=== PATIENT | female | born 1955 | race Caucasian/White ===

== ENCOUNTER 2016-09-02 10:51 | Inpatient (IN) | payer MEDICAID, OTHER ==
[~2016-09-02] VITALS: Ht 160 cm; Wt 68.6 kg
[~2016-09-02 10:51] MED LIST: ACET-868 PO; ACET325T53 PO; ACET500C43 PO; AMLO10TA4 PO; ATOR40TA PO; ATRO2DRO4 EACHEYE; BLOO-140 IN; BRIM5DRO EACHEYE; CLON0.1T PO; CLOP75TA2 PO; DOCU-25 PO; DOCU-270 PO; DORZ10DR11 EACHEYE; FOLI0.8T2 PO; FOLI1TAB16 PO; INSU100V10 SQ; INSU100V27 SQ; LATA2.5D2 EACHEYE; MELA3TAB PO; MULT1TAB11 PO; PANT40TA2 PO; PRED5DRO4 LEFTEYE; SENN8.6T6 PO; SERT25TA PO; SERT50TA PO; SEVE800T8 PO
[2016-09-02] MEDS ORDERED: IV NS 0.9% 500 ML BAG IV ONE (11:30)
[2016-09-02] MEDS ORDERED: IV SET PRIMARY 1 EA INFUS.SET MC ONE (11:40)
[2016-09-02] MEDS ORDERED: IV NS 0.9% 500 ML IV ONE ×2 (11:40→22:10)
[2016-09-02 11:42] LABS: BASOPHILS % (AUTO) 3.6 % (0.0-2.0); DIFF TOTAL % 100 %; EOSINOPHILS # (AUTO) 0.2 /CMM (0.0-0.7); EOSINOPHILS % (AUTO) 0.8 % (0.0-6.0); HEMATOCRIT 43 % (33-45); HEMOGLOBIN 13.9 g/dL (11.5-14.8); LYMPHOCYTES # (AUTO) 2.6 /CMM (0.8-4.8); LYMPHOCYTES % (AUTO) 9.4 % (20.0-44.0); MEAN CORPUSCULAR HEMOGLOBIN 29 PG (26.0-33.0); MEAN CORPUSCULAR HGB CONC 32 g/dl (31.0-36.0); MEAN CORPUSCULAR VOLUME 90 fL (82-100); MONOCYTES # (AUTO) 1.1 /CMM (0.1-1.30); NEUTROPHILS # (AUTO) 23.1 /CMM (1.8-8.9); NEUTROPHILS % (AUTO) 82.2 % (43.0-81.0); PLATELET COUNT (AUTO) 418 /CMM (150-450); RED BLOOD CELL COUNT(AUTO) 4.77 MIL/uL (4.0-5.2)
[2016-09-02 11:56] LABS: INR 1.03 (0.87-1.13); PROTHROMBIN TIME 10.8 SECS (9.5-12.7)
[2016-09-02 11:57] LABS: ALANINE AMINOTRANSFERASE 15 U/L (12-78); ALBUMIN 3.4 g/dL (3.4-5.0); ANION GAP 27 (5-14); ASPARTATE AMINOTRANSFERASE 14 U/L (15-37); BILIRUBIN,DIRECT 0.1 mg/dL (0.0-0.2); BILIRUBIN,TOTAL 0.6 mg/dL (0.2-1.0); CALCIUM, SERUM 9.8 mg/dL (8.5-10.1); CARBON DIOXIDE 18 mmol/L (21-32); CHLORIDE 96 mmol/L (98-107); CREATININE 6.6 mg/dL (0.6-1.3); GFR 6 mL/min (>60); GLUCOSE 197 mg/dL (74-106); INDIRECT BILIRUBIN 0.5 mg/dL (0.0-1.1); SODIUM SERUM 136 mmol/L (136-145); TOTAL PROTEIN, SERUM 8.1 g/dL (6.4-8.2); UREA NITROGEN, BLOOD 48 mg/dL (7-18)
[2016-09-02 11:59] LABS: POTASSIUM 5.8 mmol/L (3.5-5.1)
[2016-09-02 12:00] LABS: TROPONIN I < 0.017 ng/mL (0.00-0.056)
[2016-09-02] MEDS ORDERED: INSU100I26 SQ (12:11)
[2016-09-02] MEDS ORDERED: ERGO50003 PO (12:11)
[2016-09-02] MEDS ORDERED: ONDANSETRON HCL/PF 4 MG/2 ML VIAL ONE (12:11)
[2016-09-02] MEDS ORDERED: LORA1TAB PO (12:11)
[2016-09-02] MEDS ORDERED: HYDR-3326 PO (12:11)
[2016-09-02] MEDS ORDERED: SEVE800T8 PO (12:11)
[2016-09-02] MEDS ORDERED: CLOP75TA2 PO (12:11)
[2016-09-02] MEDS ORDERED: ONDANSETRON HCL/PF - ER 4 MG/2 ML VIAL IV ONE (12:30)
[2016-09-02 13:17] LABS: BAND % (MANUAL) 1 % (0.0-5.0); LYMPHOCYTES % (MANUAL) 9 % (16-48)
[2016-09-02 13:19] LABS: ANISOCYTOSIS 1+; BURR CELLS 1+; PLATELET ESTIMATE ADEQUATE
[2016-09-02] MEDS ORDERED: ACETAMINOPHEN 325 MG TABLET PO PRN (14:00)
[2016-09-02] MEDS ORDERED: HYDROCODONE/APAP 5/325MG 1 EACH TABLET PO PRN (14:00)
[2016-09-02] MEDS ORDERED: ONDANSETRON HCL/PF 4 MG/2 ML VIAL IVP PRN (14:00)
[2016-09-02] MEDS ORDERED: MORPHINE SULFATE INJ 2 MG/ML DISP.SYRIN IV PRN (14:00)
[2016-09-02] MEDS ORDERED: PANTOPRAZOLE 80 MG in IV NS 0.9% 500 ML IV PRN (14:00)
[2016-09-02] MEDS ORDERED: Z GUARD REMEDY 2 OZ OINT TP PRN (14:00)
[2016-09-02] MEDS ORDERED: ZOLPIDEM TARTRATE 5 MG TABLET PO PRN (14:00)
[2016-09-02] MEDS ORDERED: PANTOPRAZOLE 40 MG VIAL IV SCH (14:00)
[2016-09-02] MEDS ORDERED: PANTOPRAZOLE 80 MG in IV NS 0.9% 100 ML IV ONE (14:00)
[2016-09-02 14:30] VITALS: BP 117/65
[2016-09-02] MEDS ORDERED: IV SET PRIMARY PUMP SET 1 EA INFUS.SET MC ONE ×2 (14:57→22:10)
[2016-09-02] MEDS: IV NS 0.9% 1,000 ML IV PRN (15:02)
[2016-09-02 16:00] VITALS: BP 113/59
[2016-09-02 20:00] VITALS: BP 132/64
[2016-09-02] MEDS ORDERED: PANTOPRAZOLE 40 MG VIAL ONE (22:10)
[2016-09-02] MEDS: PANTOPRAZOLE 80 MG in IV NS 0.9% 500 ML IV PRN (22:30)
[2016-09-03] VITALS: BP 111/55
[2016-09-03 04:00] VITALS: BP 156/78
[2016-09-03] MEDS: IV NS 0.9% 1,000 ML IV PRN ×2 (04:49→16:00)
[2016-09-03 07:41] LABS: BASOPHILS # (AUTO) 0.1 /CMM (0.0-0.2); BASOPHILS % (AUTO) 0.3 % (0.0-2.0); DIFF TOTAL % 100 %; EOSINOPHILS # (AUTO) 0.1 /CMM (0.0-0.7); EOSINOPHILS % (AUTO) 0.6 % (0.0-6.0); HEMATOCRIT 36 % (33-45); HEMOGLOBIN 11.8 g/dL (11.5-14.8); LYMPHOCYTES # (AUTO) 2.9 /CMM (0.8-4.8); LYMPHOCYTES % (AUTO) 12.1 % (20.0-44.0); MEAN CORPUSCULAR HEMOGLOBIN 31 PG (26.0-33.0); MEAN CORPUSCULAR HGB CONC 33 g/dl (31.0-36.0); MEAN CORPUSCULAR VOLUME 92 fL (82-100); MONOCYTES # (AUTO) 1.6 /CMM (0.1-1.30); MONOCYTES % (AUTO) 6.8 % (2.0-12.0); NEUTROPHILS # (AUTO) 19.2 /CMM (1.8-8.9); NEUTROPHILS % (AUTO) 80.2 % (43.0-81.0); PLATELET COUNT (AUTO) 312 /CMM (150-450); RED BLOOD CELL COUNT(AUTO) 3.86 MIL/uL (4.0-5.2)
[2016-09-03] MEDS: PANTOPRAZOLE 80 MG in IV NS 0.9% 500 ML IV PRN (07:54)
[2016-09-03 08:00] VITALS: BP 115/51
[2016-09-03 08:21] LABS: CALCIUM, SERUM 8.9 mg/dL (8.5-10.1); CREATININE 6.8 mg/dL (0.6-1.3); PHOSPHORUS 6.1 mg/dL (2.5-4.9); POTASSIUM 4.1 mmol/L (3.5-5.1)
[2016-09-03 12:00] VITALS: BP 98/49
[2016-09-03 16:00] VITALS: BP 112/46
[2016-09-03] MEDS: PANTOPRAZOLE 40 MG VIAL IV SCH (16:00)
[2016-09-03 19:12] LABS: URIC ACID 4.1 mg/dL (2.6-7.2)
[2016-09-03 20:00] VITALS: BP 116/50
[2016-09-03] MEDS ORDERED: FEE PK DOSING 1 MIN EA MC ONE (20:29)
[2016-09-03] MEDS ORDERED: VANCOMYCIN 1 GM in IV D5W 250 ML IV ONE (21:00)
[2016-09-03] MEDS ORDERED: SECONDARY IV SET 1 EA INFUS.SET MC ONE ×2 (21:21→22:52)
[2016-09-03] MEDS ORDERED: CEFEPIME 1 GM in IV D5W 50 ML IV ONE (22:00)
[2016-09-04 04:00] VITALS: BP 145/70
[2016-09-04 06:51] LABS: BASOPHILS % (AUTO) 0.2 % (0.0-2.0); DIFF TOTAL % 100 %; EOSINOPHILS # (AUTO) 0.2 /CMM (0.0-0.7); EOSINOPHILS % (AUTO) 1.4 % (0.0-6.0); HEMATOCRIT 34 % (33-45); HEMOGLOBIN 11.6 g/dL (11.5-14.8); LYMPHOCYTES # (AUTO) 2.1 /CMM (0.8-4.8); LYMPHOCYTES % (AUTO) 13.1 % (20.0-44.0); MEAN CORPUSCULAR HEMOGLOBIN 31 PG (26.0-33.0); MEAN CORPUSCULAR HGB CONC 34 g/dl (31.0-36.0); MEAN CORPUSCULAR VOLUME 92 fL (82-100); MONOCYTES # (AUTO) 1.3 /CMM (0.1-1.30); MONOCYTES % (AUTO) 8.5 % (2.0-12.0); NEUTROPHILS # (AUTO) 12.2 /CMM (1.8-8.9); NEUTROPHILS % (AUTO) 76.8 % (43.0-81.0); PLATELET COUNT (AUTO) 264 /CMM (150-450); RED BLOOD CELL COUNT(AUTO) 3.75 MIL/uL (4.0-5.2); WHITE BLOOD COUNT (AUTO) 15.9 K/uL (4.3-11.0)
[2016-09-04 07:17] LABS: CALCIUM, SERUM 8.7 mg/dL (8.5-10.1); PHOSPHORUS 4.3 mg/dL (2.5-4.9); POTASSIUM 3.7 mmol/L (3.5-5.1)
[2016-09-04 08:00] VITALS: BP 145/70
[2016-09-04] MEDS: PANTOPRAZOLE 40 MG VIAL IV SCH ×2 (08:44→16:27)
[2016-09-04] MEDS: IV NS 0.9% 1,000 ML IV PRN (08:49)
[2016-09-04] MEDS ORDERED: VANCOMYCIN 500 MG in IV D5W 100 ML IV PRN (09:00)
[2016-09-04 12:09] LABS: VIT D, 25-HYDROXY 9.2 ng/mL (30.0-100.0)
[2016-09-04] MEDS: GENTAMICIN OPTH SOLN 0.3% 5 ML BOTTLE EACHEYE SCH ×3 (15:15→22:09)
[2016-09-04 16:00] VITALS: BP 145/55
[2016-09-04 20:00] VITALS: BP 139/58
[2016-09-04] MEDS: CEFEPIME 0.5 GM in IV D5W 50 ML IV SCH (22:08)
[2016-09-05] MEDS: GENTAMICIN OPTH SOLN 0.3% 5 ML BOTTLE EACHEYE SCH ×6 (03:39→22:30)
[2016-09-05 04:00] VITALS: BP 118/70
[2016-09-05 08:00] VITALS: BP 130/65
[2016-09-05] MEDS: PANTOPRAZOLE 40 MG VIAL IV SCH ×2 (09:55→17:30)
[2016-09-05 16:00] VITALS: BP 156/68
[2016-09-05 20:00] VITALS: BP 133/74
[2016-09-05] MEDS: CEFEPIME 0.5 GM in IV D5W 50 ML IV SCH (21:25)
[2016-09-06 04:00] VITALS: BP 140/72
[2016-09-06] MEDS: GENTAMICIN OPTH SOLN 0.3% 5 ML BOTTLE EACHEYE SCH ×6 (04:07→22:14)
[2016-09-06 08:00] VITALS: BP 152/62
[2016-09-06] MEDS: PANTOPRAZOLE 40 MG VIAL IV SCH ×2 (08:50→17:34)
[2016-09-06 16:00] VITALS: BP 125/69
[2016-09-06 20:00] VITALS: BP 139/65
[2016-09-06] MEDS: CEFEPIME 0.5 GM in IV D5W 50 ML IV SCH (22:13)
[2016-09-07] MEDS: GENTAMICIN OPTH SOLN 0.3% 5 ML BOTTLE EACHEYE SCH ×6 (02:30→21:24)
[2016-09-07 04:00] VITALS: BP 125/73
[2016-09-07 04:15] VITALS: BP 125/73
[2016-09-07 08:00] VITALS: BP 135/59
[2016-09-07 08:09] LABS: BASOPHILS # (AUTO) 0.1 /CMM (0.0-0.2); BASOPHILS % (AUTO) 0.4 % (0.0-2.0); DIFF TOTAL % 100 %; EOSINOPHILS # (AUTO) 0.2 /CMM (0.0-0.7); EOSINOPHILS % (AUTO) 1.7 % (0.0-6.0); HEMATOCRIT 34 % (33-45); HEMOGLOBIN 10.9 g/dL (11.5-14.8); LYMPHOCYTES # (AUTO) 1.8 /CMM (0.8-4.8); LYMPHOCYTES % (AUTO) 12.7 % (20.0-44.0); MEAN CORPUSCULAR HEMOGLOBIN 30 PG (26.0-33.0); MEAN CORPUSCULAR HGB CONC 33 g/dl (31.0-36.0); MEAN CORPUSCULAR VOLUME 93 fL (82-100); MONOCYTES # (AUTO) 1.7 /CMM (0.1-1.30); MONOCYTES % (AUTO) 11.5 % (2.0-12.0); NEUTROPHILS # (AUTO) 10.6 /CMM (1.8-8.9); NEUTROPHILS % (AUTO) 73.7 % (43.0-81.0); PLATELET COUNT (AUTO) 247 /CMM (150-450); WHITE BLOOD COUNT (AUTO) 14.4 K/uL (4.3-11.0)
[2016-09-07 08:19] LABS: CALCIUM, SERUM 8.1 mg/dL (8.5-10.1); CREATININE 5.1 mg/dL (0.6-1.3); PHOSPHORUS 3.7 mg/dL (2.5-4.9); POTASSIUM 3.3 mmol/L (3.5-5.1)
[2016-09-07] MEDS: PANTOPRAZOLE 40 MG VIAL IV SCH ×2 (08:52→17:41)
[2016-09-07] MEDS ORDERED: IV NS 0.9% 2,000 ML ONE (09:44)
[2016-09-07] MEDS ORDERED: ALTEPLASE CATHFLO 2 MG/VIAL IV ONE (10:30)
[2016-09-07] MEDS ORDERED: ALBUMIN 25% 25 GM in PREMIX 1 EA IV PRN (10:30)
[2016-09-07 16:00] VITALS: BP 126/48
[2016-09-07 20:35] VITALS: BP 92/52
[2016-09-07] MEDS: CEFEPIME 0.5 GM in IV D5W 50 ML IV SCH (21:21)
[2016-09-08] MEDS: GENTAMICIN OPTH SOLN 0.3% 5 ML BOTTLE EACHEYE SCH ×3 (02:07→11:14)
[2016-09-08 04:31] VITALS: BP 138/56
[2016-09-08] MEDS: PIPERACILLIN /TAZOBACTAM 2.25 G in IV D5W 50 ML IV SCH ×2 (05:12→13:00)
[2016-09-08 07:35] LABS: BASOPHILS # (AUTO) 0.1 /CMM (0.0-0.2); BASOPHILS % (AUTO) 0.4 % (0.0-2.0); DIFF TOTAL % 100 %; EOSINOPHILS # (AUTO) 0.2 /CMM (0.0-0.7); EOSINOPHILS % (AUTO) 1.8 % (0.0-6.0); HEMATOCRIT 31 % (33-45); HEMOGLOBIN 10.3 g/dL (11.5-14.8); LYMPHOCYTES # (AUTO) 2.2 /CMM (0.8-4.8); MEAN CORPUSCULAR HEMOGLOBIN 31 PG (26.0-33.0); MEAN CORPUSCULAR HGB CONC 33 g/dl (31.0-36.0); MEAN CORPUSCULAR VOLUME 93 fL (82-100); MONOCYTES # (AUTO) 1.8 /CMM (0.1-1.30); MONOCYTES % (AUTO) 13.5 % (2.0-12.0); NEUTROPHILS # (AUTO) 9.2 /CMM (1.8-8.9); NEUTROPHILS % (AUTO) 68.3 % (43.0-81.0); PLATELET COUNT (AUTO) 217 /CMM (150-450); RED BLOOD CELL COUNT(AUTO) 3.33 MIL/uL (4.0-5.2); WHITE BLOOD COUNT (AUTO) 13.5 K/uL (4.3-11.0)
[2016-09-08 08:00] VITALS: BP 142/57
[2016-09-08 08:17] LABS: BILIRUBIN,TOTAL 0.7 mg/dL (0.2-1.0); CALCIUM, SERUM 7.4 mg/dL (8.5-10.1); PHOSPHORUS 2.7 mg/dL (2.5-4.9); POTASSIUM 3.2 mmol/L (3.5-5.1); TOTAL PROTEIN, SERUM 6.4 g/dL (6.4-8.2)
[2016-09-08] MEDS: PANTOPRAZOLE 40 MG VIAL IV SCH (08:27)
[2016-09-08] MEDS ORDERED: IV NS 0.9% 250 ML IV ONE (08:33)
[2016-09-08] MEDS ORDERED: IV SET PRIMARY PUMP SET 1 EA INFUS.SET MC ONE (08:33)
[2016-09-08] MEDS ORDERED: SECONDARY IV SET 1 EA INFUS.SET MC ONE (12:57)
== END 2016-09-08 14:16 | DRG 720 ==
LOC: ER 10:53 → TELE1 12:39 → MEDSG1 09-03 10:51
PROVIDERS: ADMIT Internal Medicine; ATTEND Internal Medicine Nephrology
PROC: 5A1D60Z (ICD-10-PCS; principal; 2016-09-03)
DX: A41.9 Sepsis, unspecified organism (principal); G92 Toxic encephalopathy; N18.6 End stage renal disease; I12.0 Hypertensive chronic kidney disease with stage 5 chronic kidney disease or end stage renal disease; F03.90 Unspecified dementia, unspecified severity, without behavioral disturbance, psychotic disturbance, mood disturbance, and anxiety; N39.0 Urinary tract infection, site not specified; E11.22 Type 2 diabetes mellitus with diabetic chronic kidney disease; E53.8 Deficiency of other specified B group vitamins; J44.9 Chronic obstructive pulmonary disease, unspecified; Z99.2 Dependence on renal dialysis; H54.8 Legal blindness, as defined in USA; Z89.512 Acquired absence of left leg below knee; Z89.612 Acquired absence of left leg above knee; Z86.73 Personal history of transient ischemic attack (TIA), and cerebral infarction without residual deficits; D72.829 Elevated white blood cell count, unspecified; F32.9 Major depressive disorder, single episode, unspecified; D63.1 Anemia in chronic kidney disease; E78.5 Hyperlipidemia, unspecified; E87.5 Hyperkalemia; F41.9 Anxiety disorder, unspecified; H10.9 Unspecified conjunctivitis; H26.9 Unspecified cataract; H40.9 Unspecified glaucoma; K21.9 Gastro-esophageal reflux disease without esophagitis; M85.80 Other specified disorders of bone density and structure, unspecified site
CPT/HCPCS: 36415; 71010-TC; 80048-TC; 80053-TC; 80076-TC; 80202-TC; 82272-TC; 82306; 82378; 82728-TC; 82746; 82962-TC; 83540-TC; 83605-TC; 83615-TC; 83690-TC; 83735-TC; 84100-TC; 84484-TC; 84550-TC; 85025-TC; 85652-TC; 85730-TC; 86850-TC; 87040-TC; 87081-TC; 87400; 90935-TC; A4216; A4606; A6402; C9113; J0692; J2405; J2543; J2997; J3370; J7030; J7040; J7050; J7060; P9047; Z7610

== ENCOUNTER 2017-06-28 06:34 | Emergency (ER) | payer OTHER ==
[~2017-06-28] VITALS: Ht 160 cm; Wt 59.0 kg
[~2017-06-28 06:34] MED LIST changes: -DOCU-25 PO; +ERGO50003 PO; +HYDR-3326 PO; +INSU100I26 SQ; -INSU100V10 SQ; +LORA1TAB PO; -MULT1TAB11 PO; -SENN8.6T6 PO; -SERT25TA PO; -SERT50TA PO
--- NOTE | 2017-06-28 06:50 | NUR ---
MARYDenita FROM PRISON DUE TO TIBIA FRACTURE. PT IS A/O X3, MOHAWK SPEAKING. O2 SAT >97% ON ROOM AIR. PT STATES SHE WAS HAVING MILD PAIN AT RIGHT LOWER EXTREMITY AT THE PRISON. CURRENTLY HAS PAIN UPON MOVEMENT. PT STATES SHE PREVIOUSLY HAD A FRACTURE IN THE SAME LEG APPROXIMATELY [address] PEOPLES AT BEDSIDE.
--- NOTE | 2017-06-28 07:09 | NUR ---
XRAY TAKEN OF RIGHT LOWER EXTREMITY.
--- NOTE | 2017-06-28 07:14 | NUR ---
REPORT GIVEN TO NYDIA VELAZQUEZ.
[2017-06-28] MEDS ORDERED: HYDROCODONE/APAP 5/325MG 1 EACH TABLET ONE (07:52)
[2017-06-28] MEDS ORDERED: HYDROCODONE/APAP 5/325MG 1 EACH TABLET PO ONE (08:00)
[2017-06-28] MEDS ORDERED: MORPHINE SULFATE INJ 2 MG/ML DISP.SYRIN IM ONE (08:00)
--- NOTE | 2017-06-28 09:03 | NUR ---
Patient discharged to home in stable condition. Written and verbal after care instructions given. Patient' s daughter verbalizes understanding of instruction. Pt assisted via wheelchair.
[2017-06-28 09:05] VITALS: BP 154/84
== END 2017-06-28 09:06 | disposition home or self-care (01) ==
LOC: ER 06:36
DX: S82.831A Other fracture of upper and lower end of right fibula, initial encounter for closed fracture (principal); S82.391A Other fracture of lower end of right tibia, initial encounter for closed fracture; E78.00 Pure hypercholesterolemia, unspecified; I12.0 Hypertensive chronic kidney disease with stage 5 chronic kidney disease or end stage renal disease; N18.6 End stage renal disease; E11.22 Type 2 diabetes mellitus with diabetic chronic kidney disease; F03.90 Unspecified dementia, unspecified severity, without behavioral disturbance, psychotic disturbance, mood disturbance, and anxiety; F32.9 Major depressive disorder, single episode, unspecified; H40.9 Unspecified glaucoma; K21.9 Gastro-esophageal reflux disease without esophagitis; Z79.4 Long term (current) use of insulin; Z89.512 Acquired absence of left leg below knee; Z86.73 Personal history of transient ischemic attack (TIA), and cerebral infarction without residual deficits; X58.XXXA Exposure to other specified factors, initial encounter; Y93.89 Activity, other specified; Y92.89 Other specified places as the place of occurrence of the external cause; Y99.8 Other external cause status; Z79.899 Other long term (current) drug therapy
CPT/HCPCS: 73590-TC; A4606; Z7610

== ENCOUNTER 2017-07-22 15:43 | Inpatient (IN) | payer OTHER ==
[~2017-07-22] VITALS: Ht 165.1 cm; Wt 53.7 kg
[~2017-07-22 15:43] MED LIST changes: +CLOP75TA15 PO; -CLOP75TA2 PO; +ERGO500014 PO; -ERGO50003 PO
[2017-07-22 16:42] LABS: BASOPHILS % (AUTO) 0.4 % (0.0-2.0); EOSINOPHILS % (AUTO) 0.3 % (0.0-6.0); HEMATOCRIT 33 % (33-45); HEMOGLOBIN 11.4 g/dL (11.5-14.8); LYMPHOCYTES # (AUTO) 1.6 /CMM (0.8-4.8); LYMPHOCYTES % (AUTO) 18.7 % (20.0-44.0); MEAN CORPUSCULAR HEMOGLOBIN 31 PG (26.0-33.0); MEAN CORPUSCULAR HGB CONC 35 g/dl (31.0-36.0); MEAN CORPUSCULAR VOLUME 89 fL (82-100); MONOCYTES % (AUTO) 11.4 % (2.0-12.0); NEUTROPHILS # (AUTO) 5.9 /CMM (1.8-8.9); NEUTROPHILS % (AUTO) 69.2 % (43.0-81.0); PLATELET COUNT (AUTO) 235 /CMM (150-450); RDW COEFFICIENT OF VARIATION 14.5 (11.5-15.0); WHITE BLOOD COUNT (AUTO) 8.5 K/uL (4.3-11.0)
[2017-07-22] MEDS ORDERED: AMIN30LI4 PO (16:53)
[2017-07-22] MEDS ORDERED: SENN-167 PO (16:53)
[2017-07-22] MEDS ORDERED: SEVE0.8P3 PO (16:53)
[2017-07-22] MEDS ORDERED: BRIN8DRO EACHEYE (16:53)
[2017-07-22] MEDS ORDERED: NUT.237L67 PO (16:53)
[2017-07-22] MEDS ORDERED: TIMO5DRO18 EACHEYE (16:53)
[2017-07-22] MEDS ORDERED: FAMO20TA8 PO (16:53)
[2017-07-22 16:56] LABS: INR 1.04 (0.87-1.13)
[2017-07-22 16:58] LABS: BILIRUBIN,DIRECT 0.3 mg/dL (0.0-0.2); BILIRUBIN,TOTAL 0.7 mg/dL (0.2-1.0); CALCIUM, SERUM 8.2 mg/dL (8.5-10.1); CREATININE 2.2 mg/dL (0.6-1.3); TOTAL PROTEIN, SERUM 5.9 g/dL (6.4-8.2)
[2017-07-22 17:00] LABS: TROPONIN I 0.041 ng/mL (0.00-0.056)
[2017-07-22 17:03] LABS: POTASSIUM 2.3 mmol/L (3.5-5.1)
[2017-07-22 17:48] LABS: APPEARANCE,URINE TURBID (CLEAR); COLOR,URINE DARK YELLOW (YELLOW); PH,URINE 7.5 (5.0-8.0)
[2017-07-22 17:49] LABS: BILIRUBIN,URINE SMALL (NEGATIVE); BLOOD, URINE 3+ Ery/uL (NEGATIVE); PROTEIN,URINE 2+ mg/dl (NEGATIVE); UGLUCOSE NEGATIVE (NEGATIVE)
[2017-07-22 17:50] LABS: KETONES,URINE NEGATIVE (NEGATIVE); UROBILINOGEN,URINE 0.2 EU/dL (0.2)
[2017-07-22 17:51] LABS: NITRITE, URINE NEGATIVE (NEGATIVE)
[2017-07-22 17:52] LABS: LEUKOCYTE ESTERASE ,URINE 2+ (NEGATIVE)
[2017-07-22 17:58] LABS: BACTERIA,URINE Many /HPF (None Seen); WBC,URINE 21-50 /HPF (0-3)
[2017-07-22 17:59] LABS: SQUAMOUS EPITHELIAL CELL,UR Few /HPF (None Seen)
[2017-07-22] MEDS ORDERED: PIPERACILLIN /TAZOBACTAM 2.25 G in IV D5W 50 ML IV SCH (18:17)
--- NOTE | 2017-07-22 18:18 | NUR ---
CALLED NURSING SUP. FOR TELE BED
--- NOTE | 2017-07-22 18:26 | NUR ---
RECEIVED ADMITTING ORDERS FROM DR. LEWIS AND PLACED IN CHART.
[2017-07-22] MEDS: POTASSIUM CL. PREMIX PERIPHER. 50 ML IV SCH ×4 (18:30→23:02)
[2017-07-22 21:00] VITALS: BP 92/48
--- NOTE | 2017-07-22 21:00 | NUR ---
RN OPEN NOTES RECEIVED PATIENT FROM ER IN STABLE CONDITION. A/O X2. NO SIGNS OF DISTRESS OR DISCOMFORT. BREATHING EVEN AND UNLABORED. ON 2LPM O2 VIA NC. IV ACCESS IN LAC WITH KCL INFUSING, PATENT AND INTACT, NO SIGNS OF REDNESS OR INFILTRATION. HAD F/C INTACT, WITH CLOUDY YELLOWISH GREEN PURULENT FLUID DRAINING. HAS DRESSING ON RLE C/D/I. WITH STABILIZING BOOT. ORIENTED PATIENT TO UNIT AND ROOM. ALL PHOTOS TAKEN. BED IN LOW LOCKED POSITION WITH SIDE RAILS X3. CALL LIGHT WITHIN REACH. WILL CONTINUE TO MONITOR.
--- NOTE | 2017-07-22 21:30 | NUR ---
RN NOTES PATIENT CONFUSED, PULLED ABOUT AN INCH OF LCW PERMACATH OUT. NOTIFIED DR. LEWIS RECEIVED ORDER FOR BILATERAL WRIST RESTRAINTS. WILL CONTINUE TO MONITOR PATIENT CLOSELY.
[2017-07-22] MEDS ORDERED: HYDROCODONE/APAP 5/325MG 1 EACH TABLET PO PRN (23:00)
[2017-07-22] MEDS ORDERED: PIPERACILLIN /TAZOBACTAM 3.375 G VIAL IV ONE (23:59)
[2017-07-22] MEDS ORDERED: ONDANSETRON HCL/PF 4 MG/2 ML VIAL ONE (23:59)
[2017-07-23] MEDS ORDERED: DEXTROSE 50%-WATER 50 ML DISP.SYRIN IV PRN
[2017-07-23] MEDS ORDERED: ONDANSETRON HCL/PF 4 MG/2 ML VIAL IV PRN
[2017-07-23] MEDS ORDERED: INSULIN REGULAR, HUMAN 100 UNIT/ML 3 ML VIAL SQ PRN
[2017-07-23 04:05] VITALS: BP 125/53
[2017-07-23] MEDS ORDERED: PIPERACILLIN /TAZOBACTAM 3.375 G in IV D5W 50 ML IV SCH (06:00)
[2017-07-23] MEDS: BLOOD SUGAR DIAGNOSTIC 1 EACH STRIP IN SCH ×7 (06:09→21:22)
[2017-07-23 07:01] VITALS: BP 127/56
--- NOTE | 2017-07-23 07:30 | NUR ---
RN CLOSING NOTES PATIENT RESTING IN BED, EASILY AROUSABLE. A/O X2. NO SIGNS OF DISTRESS OR DISCOMFORT. BREATHING EVEN AND UNLABORED. IV ACCESS IN LAC, PATENT AND INTACT, NO SIGNS OF REDNESS OR INFILTRATION. HAS F/C INTACT, WITH CLOUDY YELLOWISH GREEN PURULENT FLUID DRAINING. HAS DRESSING ON RLE C/D/I. WITH STABILIZING BOOT. ON BILATERAL WRIST RESTRAINTS WITH NO SKIN OR CIRCULATION ISSUES NOTED. ALL NEEDS MET. NO SIGNIFICANT CHANGES THROUGH THE NIGHT. REPOSITIONED PATIENT Q2H. BED IN LOW LOCKED POSITION WITH SIDE RAILS X3. CALL LIGHT WITHIN REACH. ENDORSED TO AM SHIFT FOR YVES. Addendum: 07/23/17 at 0732 by LUIS ENRIQUE COX RN ON TELE MONITORING WITH SR 82 NOTED.
--- NOTE | 2017-07-23 07:34 | NUR ---
AM RN NOTE Received patient sleeping comfortably in her bed, easily arousable. Resp even and non-labored. IV site intact and patent. LCW PermCath covered with dressing. Brandon wrist restraints on as ordered. Bed in low locked position. F/C intact and patent draining with yellowish cloudy drainage. Will continue to monitor.
[2017-07-23 08:00] VITALS: BP 129/61
[2017-07-23 08:19] LABS: EOSINOPHILS # (AUTO) 0.1 /CMM (0.0-0.7); EOSINOPHILS % (AUTO) 0.4 % (0.0-6.0); HEMATOCRIT 33 % (33-45); HEMOGLOBIN 10.9 g/dL (11.5-14.8); LYMPHOCYTES # (AUTO) 1.2 /CMM (0.8-4.8); LYMPHOCYTES % (AUTO) 9.4 % (20.0-44.0); MEAN CORPUSCULAR HEMOGLOBIN 30 PG (26.0-33.0); MEAN CORPUSCULAR HGB CONC 33 g/dl (31.0-36.0); MEAN CORPUSCULAR VOLUME 90 fL (82-100); MONOCYTES # (AUTO) 0.9 /CMM (0.1-1.30); MONOCYTES % (AUTO) 6.7 % (2.0-12.0); NEUTROPHILS # (AUTO) 10.7 /CMM (1.8-8.9); NEUTROPHILS % (AUTO) 83.5 % (43.0-81.0); PLATELET COUNT (AUTO) 280 /CMM (150-450); RDW COEFFICIENT OF VARIATION 14.9 (11.5-15.0); RED BLOOD CELL COUNT(AUTO) 3.66 MIL/uL (4.0-5.2); WHITE BLOOD COUNT (AUTO) 12.9 K/uL (4.3-11.0)
[2017-07-23 09:06] LABS: CALCIUM, SERUM 8.1 mg/dL (8.5-10.1); CREATININE 2.8 mg/dL (0.6-1.3); MAGNESIUM 1.7 mg/dL (1.8-2.4); PHOSPHORUS 1.6 mg/dL (2.5-4.9); POTASSIUM 3.2 mmol/L (3.5-5.1)
[2017-07-23] MEDS ORDERED: Medication Not On Formulary EA (Melatonin 3 MG) PO SCH (09:30)
[2017-07-23] MEDS ORDERED: HYDROCODONE/APAP 5/325MG 1 EACH TABLET PO PRN (09:30)
[2017-07-23] MEDS ORDERED: Medication Not On Formulary EA (Blood Sugar Diagnostic, Drum (Accu-Chek Compact) 1 EACH) IN SCH (09:30)
[2017-07-23] MEDS ORDERED: TIMOLOL MAL/DORZOLAM HCL OPHTH 10 ML BOTTLE EACHEYE SCH (09:30)
[2017-07-23] MEDS ORDERED: ACETAMINOPHEN 325 MG TABLET PO PRN (09:30)
[2017-07-23] MEDS ORDERED: TIMOLOL 0.5% SOLN OPHTH 5 ML BOTTLE EACHEYE SCH (09:30)
[2017-07-23] MEDS: CLOPIDOGREL BISULFATE 75 MG TABLET PO SCH (10:09)
[2017-07-23] MEDS: FOLIC ACID 1 MG TABLET PO SCH (10:09)
[2017-07-23] MEDS: FAMOTIDINE (20 MG) 20 MG TABLET PO SCH (10:09)
[2017-07-23] MEDS: SEVELAMER CARBONATE 0.8 GM POWD.PACK PO SCH ×4 (10:09→17:43)
[2017-07-23] MEDS: AMLODIPINE BESYLATE 10 MG TABLET PO SCH (10:10)
[2017-07-23] MEDS: DOCUSATE SODIUM 100 MG CAPSULE PO SCH ×2 (10:10→17:40)
[2017-07-23] MEDS: LORAZEPAM 1 MG TABLET PO SCH (10:11)
[2017-07-23] MEDS ORDERED: acetaZOLAMIDE 250 MG TABLET PO SCH (10:30)
[2017-07-23] MEDS: RENAL NOVASOURCE (8OZ) 1 EA BOX PO SCH ×3 (10:30→17:40)
[2017-07-23] MEDS ORDERED: INSULIN LISPRO/ASPART 100 UNIT/ML CARTRIDGE SQ PRN (10:30)
[2017-07-23] MEDS ORDERED: POTASSIUM PHOSPHATE MM 15 MMOL in IV D5W 250 ML IV SCH (11:00)
[2017-07-23 11:17] LABS: EOSINOPHILS % (MANUAL) 2 % (0-4); LYMPHOCYTES % (MANUAL) 4 % (16-48); MONOCYTES % (MANUAL) 5 % (0-11.0); NEUTROPHILS % (MANUAL) 89 (42-76)
[2017-07-23] MEDS: ATROPINE SULFATE OPHTH SOLN 15 ML BOTTLE EACHEYE SCH ×2 (11:24→17:41)
[2017-07-23] MEDS: BRIMONIDINE TARTRATE OPHT SOLN 5 ML BOTTLE EACHEYE SCH ×2 (11:25→21:18)
[2017-07-23] MEDS ORDERED: Magnesium 1GM/D5W 100ML PREMIX 100 ML IV SCH (11:30)
[2017-07-23] MEDS ORDERED: prednisoLONE ACET 1% OPHT DROP 5 ML BOTTLE LEFTEYE SCH (11:30)
[2017-07-23] MEDS: acetaZOLAMIDE 250 MG TABLET PO SCH ×2 (11:51→17:40)
--- NOTE | 2017-07-23 12:10 | NUR ---
AM RN NOTE Consent for right lower extremity wound debridement obtained from the daughter (Marcella Regalado) over the phone by 2 RN's as witnessed by Jhoan STAFFORD.
--- NOTE | 2017-07-23 12:45 | NUR ---
AM RN NOTE Debridement of right lower extremity done by Dr. Lacey, pt tolerated the procedure well.
[2017-07-23] MEDS ORDERED: K PHOS NEUTRAL 250 MG TABLET PO ONE (13:00)
[2017-07-23] MEDS ORDERED: BRINZOLAMIDE EACHEYE SCH (13:00)
[2017-07-23] MEDS ORDERED: BRIMONID TART EACHEYE SCH (13:00)
--- NOTE | 2017-07-23 13:00 | NUR ---
AM RN NOTE Pt refused lunch and S/S insulin 2 units held.
[2017-07-23] MEDS: PIPERACILLIN /TAZOBACTAM 2.25 G in IV D5W 50 ML IV SCH ×2 (13:23→21:47)
[2017-07-23] MEDS: PROSOURCE / PROSTAT (PYXIS) 30 ML UDC PO SCH ×2 (14:19→17:40)
[2017-07-23 16:00] VITALS: BP 114/54
--- NOTE | 2017-07-23 16:27 | NUR ---
AM RN NOTE Patient's IV site on LAC noted with infiltration and attempted to re-insert new IV site but unable to do so. Called Dr. David Jin with new order obtained for midline insertion, noted. CN notified dive supervisor to arrange for midline insertion.
--- NOTE | 2017-07-23 17:49 | NUR ---
AM RN NOTE Spoke with nursing supervisor gas meter repair (Carlton) still awaiting for midline nurse.
--- NOTE | 2017-07-23 17:59 | NUR ---
AM RN NOTE Called [facility] and spoke with nurse (Ayla STAFFORD) and eye drops orders clarified. Per Ayla, pt does not take cosopt any more. Called Jean-Paul (Pharmacist) made aware to update the instructions.
--- NOTE | 2017-07-23 18:38 | NUR ---
AM RN NOTE Pt lying in her bed, no acute distress noted. Still awaiting for midline nurse and will endorse to next shift to give IV zosyn that was due on 1800 once pt will have midline inserted. Will continue to monitor and endorse care to next shift.
[2017-07-23 20:00] VITALS: BP 117/53
[2017-07-23] MEDS: SENNOSIDES 8.6 MG TABLET PO SCH (21:14)
[2017-07-23] MEDS: ATORVASTATIN 40 MG TABLET PO SCH (21:15)
[2017-07-23] MEDS: LATANOPROST EYE DROP 0.005% 2.5 ML BOTTLE EACHEYE SCH (21:15)
[2017-07-23] MEDS: prednisoLONE ACET 1% OPHT DROP 5 ML BOTTLE LEFTEYE SCH (21:18)
[2017-07-23] MEDS: INSULIN DETEMIR 100 UNIT/ML CARTRIDGE SQ SCH (21:20)
[2017-07-24] MEDS: PIPERACILLIN /TAZOBACTAM 2.25 G in IV D5W 50 ML IV SCH ×4 (01:44→17:54)
[2017-07-24] MEDS: BRIMONIDINE TARTRATE OPHT SOLN 5 ML BOTTLE EACHEYE SCH ×3 (05:44→20:59)
[2017-07-24] MEDS: prednisoLONE ACET 1% OPHT DROP 5 ML BOTTLE LEFTEYE SCH ×3 (05:45→20:59)
[2017-07-24] MEDS: ATROPINE SULFATE OPHTH SOLN 15 ML BOTTLE EACHEYE SCH ×2 (05:45→17:00)
[2017-07-24] MEDS: acetaZOLAMIDE 250 MG TABLET PO SCH ×2 (06:47→17:00)
[2017-07-24] MEDS: BLOOD SUGAR DIAGNOSTIC 1 EACH STRIP IN SCH ×7 (06:49→21:17)
--- NOTE | 2017-07-24 07:25 | NUR ---
MS RN OPENING NOTES RECEIVED PATIENT AWAKE IN BED IN NO ACUTE SIGNS OF DISTRESS. A/O X1-2, CONFUSED. ON 2LPM O2 VIA NC, BREATHING EVEN AND UNLABORED. MIDLINE ON EMEKA PATENT AND INTACT, NO SIGNS OF REDNESS OR INFILTRATION NOTED TO SITE. PERMACATH ON LCW INTACT AND PATENT. F/C IN PLACED WITH CLOUDY YELLOWISH URINE DRAINING TO BEDSIDE COLLECTING BAG. BED IN LOW AND LOCKED POSITION WITH SIDE RAILS UP X3. CALL LIGHT WITHIN REACH. WILL CONTINUE TO MONITOR.
[2017-07-24 07:49] LABS: CALCIUM, SERUM 8.3 mg/dL (8.5-10.1); CREATININE 3.3 mg/dL (0.6-1.3); PHOSPHORUS 2.2 mg/dL (2.5-4.9); POTASSIUM 3.1 mmol/L (3.5-5.1)
[2017-07-24 08:00] VITALS: BP 115/53
[2017-07-24] MEDS: FOLIC ACID 1 MG TABLET PO SCH (08:25)
[2017-07-24] MEDS: CLOPIDOGREL BISULFATE 75 MG TABLET PO SCH (08:25)
[2017-07-24] MEDS: SEVELAMER CARBONATE 0.8 GM POWD.PACK PO SCH ×3 (08:25→17:21)
[2017-07-24] MEDS: FAMOTIDINE (20 MG) 20 MG TABLET PO SCH (08:25)
[2017-07-24] MEDS: PROSOURCE / PROSTAT (PYXIS) 30 ML UDC PO SCH ×3 (08:26→17:00)
[2017-07-24] MEDS: AMLODIPINE BESYLATE 10 MG TABLET PO SCH (08:26)
[2017-07-24] MEDS: DOCUSATE SODIUM 100 MG CAPSULE PO SCH ×2 (08:26→17:00)
[2017-07-24] MEDS: TIMOLOL 0.5% SOLN OPHTH 5 ML BOTTLE EACHEYE SCH ×2 (08:29→17:00)
[2017-07-24] MEDS: RENAL NOVASOURCE (8OZ) 1 EA BOX PO SCH ×2 (08:35→17:22)
[2017-07-24] MEDS ORDERED: POTASSIUM PHOSPHATE MM 15 MMOL in IV D5W 250 ML IV SCH (10:30)
[2017-07-24] MEDS: POTASSIUM PHOSPHATE MM 7.5 MMOL in IV D5W 100 ML IV SCH ×2 (10:43→14:36)
[2017-07-24] MEDS ORDERED: BRIMONID TART EACHEYE SCH (13:00)
[2017-07-24] MEDS ORDERED: BRINZOLAMIDE EACHEYE SCH (13:00)
--- NOTE | 2017-07-24 15:49 | NUR ---
RN NOTES CALLED DR BERNAL OFFICE TO INFORMED THAT PT'S K LEVEL IS LOW 3.1, SPOKE TO RIVER GUIDE/ELECTROPHYSIOLOGY NURSE PRACTITIONER DEREJE AND SAID THAT SHE WILL RELAY THE MESSAGE TO DR BERNAL OR DR JACKSON. AWAITING FOR RETURN CALL.
[2017-07-24 16:00] VITALS: BP 116/61
--- NOTE | 2017-07-24 18:32 | NUR ---
RN NOTES PATIENT S/P HEMODIALYSIS WITH OUPUT OF 500ML. V/S TAKEN 110/60MMHG, P 69. R 18 AND T 98.1f. PERMA CATH DRESSING CHANGED WITH NO ACYIVE BLEEDING NOTED. WILL CONTINUE TO MONITOR.
--- NOTE | 2017-07-24 18:59 | NUR ---
MS RN CLOSING NOTES PATIENT AWAKE AND RESTING IN BED. HOB ELEVATED AT ALL TIMES. A/O X1-2, CONFUSED. ON 2LPM O2 VIA NC, BREATHING EVEN AND UNLABORED. MIDLINE ON EMEKA PATENT AND INTACT, NO SIGNS OF REDNESS OR INFILTRATION NOTED TO SITE. PERMACATH ON LCW INTACT AND PATENT. F/C IN PLACED WITH CLOUDY YELLOWISH URINE DRAINING TO BEDSIDE COLLECTING BAG, KHALIL CARE DONE. KEPT BED IN LOW AND LOCKED POSITION WITH SIDE RAILS UP X3. CALL LIGHT WITHIN REACH. ALL NEEDS AND CARE PROVIDED WELL. WILL ENDORSED TO ASTROPHYSICS TEACHER NURSE FOR YVES. .
[2017-07-24 20:00] VITALS: BP 120/59
--- NOTE | 2017-07-24 20:00 | NUR ---
MS GRADES 1 6 TUTOR INITIAL NOTES' RECEIVED PT IN BED LYING ON HER LEFT SIDE WITH , STILL WITH BOTH SOFT RESTRAINT FOR SAFETY, BECAUSE PT TRIED TO PULL OUT HER LINES PER MA NURSE. NO SIGNS OF ANY ACUTE DISTRESS NOTED AT THIS TIME. BREATHING EVEN AND NON-LABORED, SKIN WARM AND DRY TO TOUCH. LEFT BELOW THE KNEE AMPUTATION NOTED. RIGHT FOOT WITH DRESSING DRY AND INTACT. ON KCI MATTRESS FOR PT COMFORT. KHALIL TO GRAVITY . MIDLINE ON LEFT UPPER ARM PATENT AND INTACT. KEPT HER WARM AND COMFORTABLE AT ALL TIMES. WILL CONTINUE TO MONITOR.
[2017-07-24] MEDS: ATORVASTATIN 40 MG TABLET PO SCH (21:16)
[2017-07-24] MEDS: SENNOSIDES 8.6 MG TABLET PO SCH (21:16)
[2017-07-24] MEDS: LATANOPROST EYE DROP 0.005% 2.5 ML BOTTLE EACHEYE SCH (21:28)
[2017-07-24] MEDS: INSULIN DETEMIR 100 UNIT/ML CARTRIDGE SQ SCH (22:00)
--- NOTE | 2017-07-24 22:00 | NUR ---
ZMT OPERATOR/NOTES BLOOD SUGAR CHECKED DONE 80, NO INSULIN GIVEN WELL LEVEMIR. PT REFUSED. NO SIGNS OF HYPO GLYCEMIA NOTED. NO IVF INFUSING ORDERED EXCEPT ANTIBIOTIC. WILL CONTINUE TO MONITOR.
--- NOTE | 2017-07-24 23:00 | NUR ---
MS MINIATURE SET BUILDER CLOSING NOTES ALL DUE MEDS GIVEN. ENDORSE TO ANOTHER NURSE CHARLETTE FOR CONTINUITY OF CARE.
[2017-07-25] MEDS: PIPERACILLIN /TAZOBACTAM 2.25 G in IV D5W 50 ML IV SCH ×4 (00:42→17:39)
[2017-07-25] MEDS: prednisoLONE ACET 1% OPHT DROP 5 ML BOTTLE LEFTEYE SCH ×3 (06:13→20:33)
[2017-07-25] MEDS: BRIMONIDINE TARTRATE OPHT SOLN 5 ML BOTTLE EACHEYE SCH ×3 (06:13→20:33)
[2017-07-25] MEDS: BLOOD SUGAR DIAGNOSTIC 1 EACH STRIP IN SCH ×8 (07:16→22:55)
--- NOTE | 2017-07-25 07:35 | NUR ---
MS RN CLOSING NOTES PT SLEPT INTERMITTENTLY @ NIGHT IN MODERATE HIGH BACKREST. A/O X1-2, RESPONDS TO VERBAL COMMUNICATION. ON SUPPLEMENTAL 2LPM O2 VIA NC, BREATHING EVEN AND UNLABORED. MIDLINE ON EMEKA PATENT AND INTACT, NO SIGNS OF REDNESS OR INFILTRATION NOTED TO SITE. PERMA CATH ON LCW INTACT AND PATENT. F/C IN PLACED WITH CLOUDY YELLOW URINE DRAINING TO BEDSIDE COLLECTING BAG. BED IN LOW AND LOCKED POSITION WITH SIDE RAILS UP X3. CALL LIGHT WITHIN REACH. KEPT CLEAN & DRY, TURNED/REPOSITIONED IN BED. ENDORSED TO AM RN FOR CONTINUITY OF CARE.
--- NOTE | 2017-07-25 07:37 | NUR ---
MS RN OPENING NOTES RECEIVED PATIENT IN BED AWAKE AND COMFORTABLY LYING @ MODERATE HIGH BACKREST. A/O X1-2, RESPONDS TO VERBAL COMMUNICATION. ON SUPPLEMENTAL 2LPM O2 VIA NC, BREATHING EVEN AND UNLABORED. MIDLINE ON EMEKA PATENT AND INTACT, NO SIGNS OF REDNESS OR INFILTRATION NOTED TO SITE. PERMACATH ON LCW INTACT AND PATENT. F/C IN PLACED WITH CLOUDY YELLOWISH URINE DRAINING TO BEDSIDE COLLECTING BAG. BED IN LOW AND LOCKED POSITION WITH SIDE RAILS UP X3. CALL LIGHT WITHIN REACH. WILL CONTINUE TO MONITOR.
[2017-07-25 08:00] VITALS: BP 114/71
[2017-07-25] MEDS: acetaZOLAMIDE 250 MG TABLET PO SCH ×2 (08:02→16:31)
[2017-07-25] MEDS: FAMOTIDINE (20 MG) 20 MG TABLET PO SCH (08:03)
[2017-07-25] MEDS: CLOPIDOGREL BISULFATE 75 MG TABLET PO SCH (08:09)
[2017-07-25] MEDS: AMLODIPINE BESYLATE 10 MG TABLET PO SCH (08:09)
[2017-07-25] MEDS: RENAL NOVASOURCE (8OZ) 1 EA BOX PO SCH ×2 (08:09→17:35)
[2017-07-25] MEDS: FOLIC ACID 1 MG TABLET PO SCH (08:10)
[2017-07-25] MEDS: PROSOURCE / PROSTAT (PYXIS) 30 ML UDC PO SCH ×3 (08:12→16:36)
[2017-07-25] MEDS: DOCUSATE SODIUM 100 MG CAPSULE PO SCH ×2 (08:13→16:33)
[2017-07-25] MEDS: SEVELAMER CARBONATE 0.8 GM POWD.PACK PO SCH ×3 (08:14→17:36)
[2017-07-25] MEDS: TIMOLOL 0.5% SOLN OPHTH 5 ML BOTTLE EACHEYE SCH ×2 (08:20→16:35)
[2017-07-25] MEDS ORDERED: ERGOCALCIFEROL (VITAMIN D 2) 50,000 UNIT CAPSULE PO SCH (09:00)
[2017-07-25 16:00] VITALS: BP 110/69
[2017-07-25] MEDS: ATROPINE SULFATE OPHTH SOLN 15 ML BOTTLE EACHEYE SCH (16:39)
--- NOTE | 2017-07-25 18:42 | NUR ---
MS RN CLOSING NOTES PATIENT IN BED AT [facility]. A/O X1-2, CONFUSED AT TIMES. NO SIGNIFICANT CHANGES NOTED DURING THE DAY. DIABETIC STATUS CLOSELY MONITORED. ON 2LPM O2 VIA NC, BREATHING EVEN AND UNLABORED, PT KEEPS REMOVING IT. MIDLINE ON EMEKA PATENT AND INTACT, NO SIGNS OF REDNESS OR INFILTRATION NOTED TO SITE. PERMACATH ON LCW INTACT AND PATENT. F/C IN PLACED AND ACTIVELY DRAING CLOUDY YELLOWISH URINE TO BEDSIDE COLLECTING BAG, KHALIL CARE DONE. KEPT BED IN LOW AND LOCKED POSITION WITH SIDE RAILS UP X3. CALL LIGHT WITHIN REACH. ALL NEEDS AND CARE PROVIDED WELL. WILL ENDORSED TO SANDWICH COUNTER ATTENDANT NURSE FOR YVES. .
--- NOTE | 2017-07-25 19:38 | NUR ---
MS/RN OPENING NOTES PATIENT IN BED, AWAKE, ALERT X2 ABLE TO VERBALIZE NEEDS WITH SIMPLE WORDS, REQUIRE REORIENTATION AND WITH PERIOD OF LACK OF COOPERATION. , ON MED SURG, WITH KHALIL CATHETER DRAINING URINE-CLOUDY, REQUIRE FREQUENT REPOSITION WITH SACRAL REDNESS. EMEKA MIDLINE, WITH PERMACATH ON LEFT CHEST WALL, MONITORING FOR HYPO/HYPERGLYCEMIA, BED IN LOCK POSITION, CALL LIGHTS WITHIN REACH. WILL CONTINUE TO MONITOR.
[2017-07-25 20:00] VITALS: BP 124/67
[2017-07-25] MEDS: LATANOPROST EYE DROP 0.005% 2.5 ML BOTTLE EACHEYE SCH (22:00)
[2017-07-25] MEDS: SENNOSIDES 8.6 MG TABLET PO SCH (22:00)
[2017-07-25] MEDS: ATORVASTATIN 40 MG TABLET PO SCH (22:00)
[2017-07-25] MEDS: INSULIN DETEMIR 100 UNIT/ML CARTRIDGE SQ SCH (22:00)
[2017-07-26] MEDS: PIPERACILLIN /TAZOBACTAM 2.25 G in IV D5W 50 ML IV SCH ×2 (00:10→05:34)
[2017-07-26] MEDS: BRIMONIDINE TARTRATE OPHT SOLN 5 ML BOTTLE EACHEYE SCH ×3 (05:34→21:04)
[2017-07-26] MEDS: prednisoLONE ACET 1% OPHT DROP 5 ML BOTTLE LEFTEYE SCH ×3 (05:35→21:04)
[2017-07-26] MEDS: BLOOD SUGAR DIAGNOSTIC 1 EACH STRIP IN SCH ×4 (06:14→22:27)
--- NOTE | 2017-07-26 06:56 | NUR ---
WOUND CARE CONSULT WOUND CARE RECEIVED CONSULT, WOUND CARE WILL DEFER CONSULT AND TREATMENT PLANS TO SURGICAL TEAM AT THIS TIME.
[2017-07-26] MEDS: ATROPINE SULFATE OPHTH SOLN 15 ML BOTTLE EACHEYE SCH (07:00)
[2017-07-26] MEDS: acetaZOLAMIDE 250 MG TABLET PO SCH (07:00)
[2017-07-26] MEDS: FAMOTIDINE (20 MG) 20 MG TABLET PO SCH ×2 (07:30→11:26)
--- NOTE | 2017-07-26 07:37 | NUR ---
MS/RN CLOSING NOTES PATIENT ALERT, ORIENTED X2, REQUIRE FREQUENT REORIENTATION, RESPIRATION EVEN AND UNLABORED, SKIN WARM TO TOUCH, LEFT BKA, ON KHALIL, CLODY URINE, BS CHECK AT 110, HD TODAY. WILL ENDORSE TO AM RN.
--- NOTE | 2017-07-26 07:42 | NUR ---
MS/RN NOTES PATIENT REFUSE TO HAVE MEDICATION FOR EYE AND AM MED , INFORMED THE PROS AND CONS,
[2017-07-26 08:00] VITALS: BP 113/61
[2017-07-26] MEDS: RENAL NOVASOURCE (8OZ) 1 EA BOX PO SCH (09:00)
[2017-07-26] MEDS: PROSOURCE / PROSTAT (PYXIS) 30 ML UDC PO SCH (09:00)
[2017-07-26] MEDS: FOLIC ACID 1 MG TABLET PO SCH (11:25)
[2017-07-26] MEDS: LORAZEPAM 1 MG TABLET PO SCH (11:26)
[2017-07-26] MEDS: AMLODIPINE BESYLATE 10 MG TABLET PO SCH (11:27)
[2017-07-26] MEDS: CLOPIDOGREL BISULFATE 75 MG TABLET PO SCH (11:27)
[2017-07-26] MEDS: TIMOLOL 0.5% SOLN OPHTH 5 ML BOTTLE EACHEYE SCH (14:59)
[2017-07-26] MEDS: DOCUSATE SODIUM 100 MG CAPSULE PO SCH (15:00)
[2017-07-26 16:00] VITALS: BP 111/77
--- NOTE | 2017-07-26 17:10 | NUR ---
Patient did not tolerate po meds in a.m. refused. Held bp meds per dialysis order today. Call light with in reach. Patient is a/o x 1. Arousable with verbal stimuli. Noted Perma cath on left chest wall. s/p dialysis on 1 ltr out. Per dialysis nurse patient was more on hypotensive side while on dialysis. Family was at bed side and assisted in administering a.m. medication.
[2017-07-26 17:41] LABS: BASOPHILS % (AUTO) 0.3 % (0.0-2.0); EOSINOPHILS # (AUTO) 0.1 /CMM (0.0-0.7); EOSINOPHILS % (AUTO) 0.7 % (0.0-6.0); HEMATOCRIT 33 % (33-45); HEMOGLOBIN 11.1 g/dL (11.5-14.8); LYMPHOCYTES # (AUTO) 1.3 /CMM (0.8-4.8); MEAN CORPUSCULAR HEMOGLOBIN 30 PG (26.0-33.0); MEAN CORPUSCULAR HGB CONC 34 g/dl (31.0-36.0); MEAN CORPUSCULAR VOLUME 88 fL (82-100); MONOCYTES # (AUTO) 0.7 /CMM (0.1-1.30); MONOCYTES % (AUTO) 5.8 % (2.0-12.0); NEUTROPHILS # (AUTO) 9.9 /CMM (1.8-8.9); NEUTROPHILS % (AUTO) 82.2 % (43.0-81.0); PLATELET COUNT (AUTO) 201 /CMM (150-450); RDW COEFFICIENT OF VARIATION 14.4 (11.5-15.0); RED BLOOD CELL COUNT(AUTO) 3.73 MIL/uL (4.0-5.2)
[2017-07-26 18:12] LABS: CALCIUM, SERUM 7.8 mg/dL (8.5-10.1); CREATININE 1.9 mg/dL (0.6-1.3); POTASSIUM 3.3 mmol/L (3.5-5.1)
[2017-07-26] MEDS ORDERED: FEE PK DOSING 1 MIN EA MC ONE (19:06)
[2017-07-26 19:17] LABS: BAND % (MANUAL) 1 % (0.0-5.0); EOSINOPHILS % (MANUAL) 1 % (0-4); LYMPHOCYTES % (MANUAL) 3 % (16-48); MONOCYTES % (MANUAL) 3 % (0-11.0); NEUTROPHILS % (MANUAL) 92 (42-76)
[2017-07-26 20:00] VITALS: BP 145/69
[2017-07-26] MEDS ORDERED: GENTAMICIN 100 MG in IV D5W 100 ML IV ONE (20:00)
--- NOTE | 2017-07-26 20:00 | NUR ---
MS ASSEMBLY LEADER INITIAL NOTES SEEN PT IN BED AWAKE AND ALERT TALKING TO HER FAMILY AT THE BEDSIDE. NO RESTRAINT AT THIS TIME. SHE'S CALMED AND NO AGITATION NOTED. BREATHING EVEN AND NON-LABORED. SKIN WARM AND DRY TO TOUCH. LEFT UPPER ARM MIDLINE PATENT AND INTACT. ON KCI MATTRESS , BED IN LOW AND LOCK IN POSITION WITH SIDE RAILS UP FOR SAFETY. KEPT HER WARM AND COMFORTABLE AT ALL TIMES. WILL CONTINUE TO MONITOR. DAUGHTER REMAIN AT THE BEDSIDE.
[2017-07-26] MEDS: INSULIN DETEMIR 100 UNIT/ML CARTRIDGE SQ SCH (22:00)
[2017-07-26] MEDS: LATANOPROST EYE DROP 0.005% 2.5 ML BOTTLE EACHEYE SCH (22:25)
[2017-07-26] MEDS: ATORVASTATIN 40 MG TABLET PO SCH (22:27)
[2017-07-26] MEDS: SENNOSIDES 8.6 MG TABLET PO SCH (22:27)
--- NOTE | 2017-07-26 22:30 | NUR ---
MS APPLIANCE TESTER NOTES PT STILL AWAKE BUT CALMED AND QUIET. BLOOD SUGAR CHECKED DONE 114, NO INSULIN COVERAGES, AND PT REFUSED LANTUS . ROUTINE MEDS GIVEN WITH HER FOOD AT THE SAME TIME AND PT TOLERATED WELL NO ASPIRATION NOTED.
--- NOTE | 2017-07-27 02:33 | NUR ---
MS DEVICE SALES CONSULTANT NOTES' PT SLEEPING AT THIS TIME, RESPIRATION EVEN AND NON-LABORED. KEPT HER WARM AND COMFORTALBE AT ALL TIMES WILL CONTINUE TO MONITOR. BED ALARM SET FOR SAFETY.
[2017-07-27] MEDS: prednisoLONE ACET 1% OPHT DROP 5 ML BOTTLE LEFTEYE SCH ×3 (06:26→21:15)
[2017-07-27] MEDS: BLOOD SUGAR DIAGNOSTIC 1 EACH STRIP IN SCH ×5 (06:26→22:35)
[2017-07-27] MEDS: BRIMONIDINE TARTRATE OPHT SOLN 5 ML BOTTLE EACHEYE SCH ×3 (06:26→21:16)
[2017-07-27] MEDS: ATROPINE SULFATE OPHTH SOLN 15 ML BOTTLE EACHEYE SCH ×2 (07:00→17:00)
--- NOTE | 2017-07-27 07:26 | NUR ---
MS GAS DISPENSER CLOSING NOTES PT RESTING AFTER MORNING CARED DONE. BLOOD SUGAR CHECKED DONE 87,NO SIGNS OF HYPO GLYCEMIA NOTED. ALL DUE MEDS GIVEN AND STABLE MOE THE NIGHT. NO SIGNS OF ANY ACUTE DISTRESS NOTED. KEPT HER WARM AND COMFORTABLE AT ALL TIMES. BED ALARM SET FOR SAFETY. ENDORSE TO AM NURSE FOR CONTINUITY OF CARE. PLACE CALL LIGHT AT REACH.
--- NOTE | 2017-07-27 07:40 | NUR ---
RN OPENING NOTES RECEIVED PATIENT RESTING COMFORTABLY IN BED. AOX2/3 PER TRANSLATION AND FAMILY. RESPIRATIONS EVEN AND UNLABORED. PATIENT IS BLIND IN BOTH EYES. F/C IN PLACE DRAINING. EMEKA MIDLINE. LCW PERMACATH. LBKA. BED LOCKED IN THE LOWEST POSITION WITH SIDERAILS UP X2. CALL LIGHT WITHIN REACH. WILL CONTINUE TO MONITOR, ASSESS AND EDUCATE PATIENT THROUGHOUT SHIFT.
[2017-07-27 07:47] LABS: BASOPHILS % (AUTO) 0.4 % (0.0-2.0); EOSINOPHILS # (AUTO) 0.1 /CMM (0.0-0.7); HEMATOCRIT 33 % (33-45); LYMPHOCYTES # (AUTO) 1.5 /CMM (0.8-4.8); LYMPHOCYTES % (AUTO) 13.2 % (20.0-44.0); MEAN CORPUSCULAR HEMOGLOBIN 30 PG (26.0-33.0); MEAN CORPUSCULAR HGB CONC 34 g/dl (31.0-36.0); MEAN CORPUSCULAR VOLUME 91 fL (82-100); MONOCYTES # (AUTO) 0.9 /CMM (0.1-1.30); MONOCYTES % (AUTO) 8.2 % (2.0-12.0); NEUTROPHILS # (AUTO) 8.6 /CMM (1.8-8.9); NEUTROPHILS % (AUTO) 77.2 % (43.0-81.0); PLATELET COUNT (AUTO) 140 /CMM (150-450); RDW COEFFICIENT OF VARIATION 15.8 (11.5-15.0); RED BLOOD CELL COUNT(AUTO) 3.62 MIL/uL (4.0-5.2); WHITE BLOOD COUNT (AUTO) 11.1 K/uL (4.3-11.0)
[2017-07-27 08:00] VITALS: BP 141/66
[2017-07-27 09:17] LABS: CREATININE 2.2 mg/dL (0.6-1.3); MAGNESIUM 1.8 mg/dL (1.8-2.4); POTASSIUM 3.3 mmol/L (3.5-5.1)
[2017-07-27] MEDS: SEVELAMER CARBONATE 0.8 GM POWD.PACK PO SCH ×3 (10:05→18:00)
[2017-07-27] MEDS: TIMOLOL 0.5% SOLN OPHTH 5 ML BOTTLE EACHEYE SCH ×2 (10:06→17:00)
[2017-07-27] MEDS: acetaZOLAMIDE 250 MG TABLET PO SCH ×2 (10:06→17:00)
[2017-07-27] MEDS: FOLIC ACID 1 MG TABLET PO SCH (10:06)
[2017-07-27] MEDS: DOCUSATE SODIUM 100 MG CAPSULE PO SCH ×2 (10:06→17:00)
[2017-07-27] MEDS: CLOPIDOGREL BISULFATE 75 MG TABLET PO SCH (10:06)
[2017-07-27] MEDS: AMLODIPINE BESYLATE 10 MG TABLET PO SCH (10:08)
[2017-07-27] MEDS: PROSOURCE / PROSTAT (PYXIS) 30 ML UDC PO SCH ×3 (10:10→17:00)
[2017-07-27] MEDS: RENAL NOVASOURCE (8OZ) 1 EA BOX PO SCH ×2 (10:10→17:00)
--- NOTE | 2017-07-27 10:14 | NUR ---
RN NON ADMIN NOTES NO ATROPINE DROPS AVAILABLE. NO ABLE TO ADMINISTER. NOTIFIED PHARMACIST GARETH AND NEED CLARIFICATION BY FAMILY BEFORE SENDING NEW BOTTLE.
--- NOTE | 2017-07-27 10:58 | NUR ---
RN NOTES MEDICATIONS REPULLED. ENDORSED BY NIGHT RN TO CRUSH MEDS. PATIENT REFUSED TO HAVE MEDICATIONS CRUSHED. NOTIFIED PHARMACY THAT MEDS WILL BE REPULLED.
[2017-07-27] MEDS ORDERED: K PHOS NEUTRAL 250 MG TABLET PO ONE (15:00)
[2017-07-27 16:00] VITALS: BP 139/89
--- NOTE | 2017-07-27 17:00 | NUR ---
RN NON ADMIN NOTES PATIENT NON COMPLIANT WITH ALL MEDS. REFUSING ANY MEDICATION. EDUCATION PROVIDED. PATIENT STILL REFUSING.
[2017-07-27] MEDS ORDERED: GENTAMICIN 80 MG in IV D5W 50 ML IV PRN (18:00)
--- NOTE | 2017-07-27 18:56 | NUR ---
RN NOTES NOTIFIED DR. UMANZOR OF 3.3 K+. ORDERS GIVEN FOR POTASSIUM 40MEQ IV. WILL ENDORSE TO NIGHT RN.
--- NOTE | 2017-07-27 19:34 | NUR ---
RN CLOSING NOTES PATIENT RESTING COMFORTABLY IN BED. AOX2/3. RESPIRATIONS EVEN AND UNLABORED. NO ACUTE DISTRESS. POOR MED COMPLIANCE. POOR NUTRITION COMPLIANCE. DENIES ANY PAIN, SOB OR CP. BED LOCKED IN THE LOWEST POSITION WITH SIDE RAILS UP X2. CALL LIGHT WITHIN REACH. WILL ENDORSE TO NIGHT RN FOR YVES.
[2017-07-27 20:00] VITALS: BP 111/61
--- NOTE | 2017-07-27 20:00 | NUR ---
EVENT MARKETING INTERN/INITIAL NOTES SEEN PT IN BED RESTING WITH EYES CLOSED BUT AROUSES TO HER NAME AND TOUCH. NO SIGNS OF ANY ACUTE DISTRESS NOTED AT THIS TIME. MIDLINE PATENT AND INTACT. KEPT HER WARM AND COMFORTABLE AT ALL TIMES. WILL CONTINUE TO MONITOR.
[2017-07-27] MEDS: POTASSIUM CL. PREMIX PERIPHER. 50 ML IV SCH ×3 (21:01→23:32)
--- NOTE | 2017-07-27 21:20 | NUR ---
DRUM TESTER/NOTES KCL IVP BAG HUNG BY ANOTHER NURSE RVY ORDERED. WILL CONTINUE TO MONITOR.
--- NOTE | 2017-07-27 21:57 | NUR ---
RN NON ADMIN NOTES PATIENT NON COMPLIANT WITH ALL MEDS. REFUSING ANY MEDICATION. EDUCATION PROVIDED. PATIENT STILL REFUSING.
[2017-07-27] MEDS: INSULIN DETEMIR 100 UNIT/ML CARTRIDGE SQ SCH (22:00)
[2017-07-27] MEDS: LATANOPROST EYE DROP 0.005% 2.5 ML BOTTLE EACHEYE SCH (22:25)
[2017-07-27] MEDS: ATORVASTATIN 40 MG TABLET PO SCH (22:25)
[2017-07-27] MEDS: SENNOSIDES 8.6 MG TABLET PO SCH (22:26)
--- NOTE | 2017-07-27 22:30 | NUR ---
NETWORK APPLICATIONS SPECIALIST.NOTES PT RESTING BUT AROUSES TO TOUCH, SPOKE TO HER REGARDING HER ROUTINE MEDICATION , BEFORE SHE SAYING NO'NO' NO' THEN AFTER I SPOKE TO HER SHE STATED OK'OK" . DRINK WITH APPLE JUICE BUT IT WILL TAKE TIME. NO ASPIRATION NOTED.
--- NOTE | 2017-07-28 | NUR ---
UNDERWRITING SUPPORT MANAGER/NOTES PT SLEEPING COMFORTABLY WITHOUT ANY ACUTE DISTRESS NOTED. BREATHING EVEN AND NON-LABORED. KEPT HER WARM AND COMFORTABLE AT ALL TIMES. KCL IVP BAG STILL INFUSING.
[2017-07-28] MEDS: POTASSIUM CL. PREMIX PERIPHER. 50 ML IV SCH (01:30)
[2017-07-28] MEDS: BLOOD SUGAR DIAGNOSTIC 1 EACH STRIP IN SCH ×4 (06:19→22:51)
[2017-07-28] MEDS: prednisoLONE ACET 1% OPHT DROP 5 ML BOTTLE LEFTEYE SCH ×3 (06:24→21:32)
[2017-07-28] MEDS: BRIMONIDINE TARTRATE OPHT SOLN 5 ML BOTTLE EACHEYE SCH ×3 (06:25→21:32)
[2017-07-28] MEDS: acetaZOLAMIDE 250 MG TABLET PO SCH ×2 (07:00→17:00)
[2017-07-28] MEDS: ATROPINE SULFATE OPHTH SOLN 15 ML BOTTLE EACHEYE SCH ×2 (07:00→17:00)
--- NOTE | 2017-07-28 07:27 | NUR ---
MS HYPO DIPPER CLOSING NOTES PT BACK TO SLEEP AFTER MORNING CARE DONE, BLOOD SUGAR CHECKED DONE 79, NO INSULIN COVERAGE , NO SIGNS OF HYPO GLYCEMIA NOTED. ALL DUE MEDS GIVEN BUT NEEDS ENCOURAGEMENT AND PATIENCE TO FEED THE PT . STABLE MOE THE NIGHT . KEPT HER WARM AND COMFORTABLE AT ALL TIMES. PLACE CALL LIGHT AT REACH. ENDORSE TO AM NURSE FOR CONTINUITY OF CARE.
[2017-07-28] MEDS: FAMOTIDINE (20 MG) 20 MG TABLET PO SCH (07:30)
--- NOTE | 2017-07-28 07:30 | NUR ---
RN OPENING NOTES RECEIVED PATIENT RESTING COMFORTABLY IN BED. AOX2/3 PER TRANSLATION AND FAMILY. RESPIRATIONS EVEN AND UNLABORED. PATIENT IS BLIND IN BOTH EYES. F/C IN PLACE DRAINING. EMEKA MIDLINE. LCW PERMACATH. LBKA. PATIENT RECOGNIZED AND KNOWN TO BE NO COMPLIANT WITH MEDICATIONS. BED LOCKED IN THE LOWEST POSITION WITH SIDERAILS UP X2. CALL LIGHT WITHIN REACH. WILL CONTINUE TO MONITOR, ASSESS AND EDUCATE PATIENT THROUGHOUT SHIFT.
[2017-07-28 08:00] VITALS: BP 155/67
[2017-07-28] MEDS: SEVELAMER CARBONATE 0.8 GM POWD.PACK PO SCH ×3 (08:00→17:59)
[2017-07-28 08:53] LABS: CALCIUM, SERUM 7.9 mg/dL (8.5-10.1); CREATININE 2.4 mg/dL (0.6-1.3); POTASSIUM 3.8 mmol/L (3.5-5.1)
[2017-07-28] MEDS: TIMOLOL 0.5% SOLN OPHTH 5 ML BOTTLE EACHEYE SCH ×2 (09:00→17:53)
[2017-07-28] MEDS: AMLODIPINE BESYLATE 10 MG TABLET PO SCH (09:00)
[2017-07-28] MEDS: CLOPIDOGREL BISULFATE 75 MG TABLET PO SCH (09:00)
[2017-07-28] MEDS: RENAL NOVASOURCE (8OZ) 1 EA BOX PO SCH ×2 (09:00→17:00)
[2017-07-28] MEDS: DOCUSATE SODIUM 100 MG CAPSULE PO SCH ×2 (09:00→17:00)
[2017-07-28] MEDS: FOLIC ACID 1 MG TABLET PO SCH (09:00)
[2017-07-28] MEDS: PROSOURCE / PROSTAT (PYXIS) 30 ML UDC PO SCH ×3 (09:00→17:00)
[2017-07-28] MEDS: LORAZEPAM 1 MG TABLET PO SCH (09:30)
--- NOTE | 2017-07-28 10:45 | NUR ---
RN NON ADMIN NOTES PATIENT REFUSING TO EAT ANY FOOD, DRINK ANY FLUIDS OR TAKE ANY TYPE OF MEDICATIONS. PATIENT EDUCATED. PATIENT YELLING AND AGGRESSIVE.
--- NOTE | 2017-07-28 10:54 | NUR ---
RN NOTES DISCUSSED PATIENT CARE PLAN WITH DR. CASTILLO. DOCTOR IS AWARE OF PATIENT BEING NON COMPLAINT WITH MEDICATIONS AND REFUSAL TO EAT. NOTIFIED DR. CASTILLO OF FAMILY WISHES FOR GTUBE AND DR. CASTILLO WILL NOT PLACE A GTUBE.
[2017-07-28 16:04] VITALS: BP 126/78
--- NOTE | 2017-07-28 17:59 | NUR ---
RN NON ADMIN NOTES PATIENT REFUSED ALL 1700 MEDICATIONS EXCEPT FOR TIMOLOL DROP. PATIENT BECAME AGITATED AFTER DROPS AND WOULD NOT TAKE ATROPINE DROPS. REFUSED 1800 MEDS. DISCUSSED WITH FAMILY AND PATIENT.
--- NOTE | 2017-07-28 19:19 | NUR ---
RN CLOSING NOTES PATIENT RESTING COMFORTABLY IN BED. AOX2/3. RESPIRATIONS EVEN AND UNLABORED. NO ACUTE DISTRESS. POOR MED COMPLIANCE. POOR NUTRITION COMPLIANCE. DOCTOR AWARE. DENIES ANY PAIN, SOB OR CP. HD COMPLETED TODAY AD ONLY 100ML REMOVED. F/C IN PLACE WITH MINIMAL URINE OUTPUT. GENTAMICIN GIVEN POST HD. BED LOCKED IN THE LOWEST POSITION WITH SIDE RAILS UP X2. CALL LIGHT WITHIN REACH. WILL ENDORSE TO NIGHT RN FOR YVES.
[2017-07-28 20:00] VITALS: BP 117/50
--- NOTE | 2017-07-28 20:00 | NUR ---
MS VIDEO SYSTEMS ENGINEER INITIAL NOTES SEEN PT IN BED AWAKE AND ALERT WITH HER FAMILY AT THE BEDSIDE. THEY'RE STILL TRYING TO ENCOURAGED PT OT EAT MUCH POSSIBLE. ATE SOME AND DRINK , MELI ASPIRATION NOTED. NO SIGNS OF ACUTE DISTRESS NOTED. KEPT HER WARM AND COMFORTABLE AT ALL TIMES. WILL CONTINUE TO MONITOR.
[2017-07-28 22:00] VITALS: BP 117/50
[2017-07-28] MEDS ORDERED: MIRTAZAPINE 15 MG TABLET PO SCH (22:00)
[2017-07-28] MEDS: INSULIN DETEMIR 100 UNIT/ML CARTRIDGE SQ SCH (22:00)
[2017-07-28] MEDS: SENNOSIDES 8.6 MG TABLET PO SCH (22:49)
[2017-07-28] MEDS: ATORVASTATIN 40 MG TABLET PO SCH (22:49)
[2017-07-28] MEDS: LATANOPROST EYE DROP 0.005% 2.5 ML BOTTLE EACHEYE SCH (22:50)
--- NOTE | 2017-07-28 23:00 | NUR ---
DIRECTOR COUNCIL ON AGING/NOTES BLOOD SUGAR CHECKED DONE 77 NO SIGNS OF HYPO GLYCEMIA NOTED. ROUTINE MEDS ADMINISTERED BUT NEEDS SOME PATIENCE , KEPT HER WARM AND COMFORTABLE AT ALL TIMES WILL CONTINUE TO MONITOR.
[2017-07-29] MEDS: BRIMONIDINE TARTRATE OPHT SOLN 5 ML BOTTLE EACHEYE SCH ×2 (06:04→11:00)
[2017-07-29] MEDS: prednisoLONE ACET 1% OPHT DROP 5 ML BOTTLE LEFTEYE SCH ×2 (06:04→13:16)
[2017-07-29] MEDS: ATROPINE SULFATE OPHTH SOLN 15 ML BOTTLE EACHEYE SCH ×2 (07:00→17:00)
--- NOTE | 2017-07-29 07:00 | NUR ---
MS MAINTENANCE AND ENGINEERING MANAGER CLOSING NOTES PT BACK TO SLEEP AFTER MORNING CARE DONE, NOT IN ANY ACUTE DISTRESS NOTED,.STABLE MOE THE NIGHT. BLOOD SUGAR CHECKED DONE 65, NO SIGNS OF HYPO GLYCEMIA NOTED. REPOSITION PT FOR COMFORT. SAFETY PRECAUTION IMPLEMENTED AND OBSERVED. ENDORSE TO AM NURSE FOR CONTINUITY OF CARE.
[2017-07-29 08:00] VITALS: BP 120/61
--- NOTE | 2017-07-29 08:00 | NUR ---
MS RN OPENING NOTES RECEIVED PATIENT EYES CLOSED COMFORTABLY IN BED, AROUSABLE TO VERBAL AND TACTILE STIMULI. NO SOB NOTED. NO ACUTE DISTRESS NOTED. RESPIRATIONS EVEN AND UNLABORED. F/C IN PLACE DRAINING NO SEDIMENTS NOTED. EMEKA MIDLINE INTACT AND PATENT. LCW PERMACATH. BED LOCKED IN THE LOWEST POSITION WITH SIDERAILS UP X2. CALL LIGHT WITHIN REACH. WILL CONTINUE TO MONITOR ACCORDINGLY.
[2017-07-29] MEDS: SEVELAMER CARBONATE 0.8 GM POWD.PACK PO SCH ×3 (08:48→18:09)
[2017-07-29] MEDS: CLOPIDOGREL BISULFATE 75 MG TABLET PO SCH (08:49)
[2017-07-29] MEDS: AMLODIPINE BESYLATE 10 MG TABLET PO SCH (08:50)
[2017-07-29] MEDS: DOCUSATE SODIUM 100 MG CAPSULE PO SCH ×2 (08:51→18:22)
[2017-07-29] MEDS: FOLIC ACID 1 MG TABLET PO SCH (08:51)
[2017-07-29] MEDS: FAMOTIDINE (20 MG) 20 MG TABLET PO SCH (08:51)
[2017-07-29] MEDS: BLOOD SUGAR DIAGNOSTIC 1 EACH STRIP IN SCH ×3 (08:51→18:14)
[2017-07-29] MEDS: acetaZOLAMIDE 250 MG TABLET PO SCH ×2 (08:54→18:08)
[2017-07-29] MEDS: TIMOLOL 0.5% SOLN OPHTH 5 ML BOTTLE EACHEYE SCH ×2 (08:54→18:15)
[2017-07-29] MEDS: RENAL NOVASOURCE (8OZ) 1 EA BOX PO SCH ×2 (09:00→18:09)
[2017-07-29] MEDS: PROSOURCE / PROSTAT (PYXIS) 30 ML UDC PO SCH ×3 (09:00→17:00)
--- NOTE | 2017-07-29 11:00 | NUR ---
MS RN NOTES PATIENT SEEN AND EVALUATED BY DR. CASTILLO ORDERS NOTED AND CARRIED OUT.
[2017-07-29 14:55] LABS: CALCIUM, SERUM 7.6 mg/dL (8.5-10.1); CREATININE 2.3 mg/dL (0.6-1.3); POTASSIUM 3.3 mmol/L (3.5-5.1)
[2017-07-29 16:00] VITALS: BP_SYST 113; BP_SYST 120; BP_DIAS 49; BP_DIAS 61
--- NOTE | 2017-07-29 18:00 | NUR ---
MS RN NOTES PATIENT IN BED RESTING NO SOB OR ACUTE DISTRESS NOTED. ALL DUE MEDICATIONS ADMINISTERED ALL NEEDS MET. PATIENT WAITING FOR DISCHARGE. [facility] PATIENT NONE COMPLIANT WITH CARE REFUSED MOST OF MEDICATIONS AND CARE. PATIENT ALSO WITH POOR APATITE MD AWARE. ENCOURAGED FAMILY TO ENCOURAGE EATING PATIENTS FAVORITE FOODS. EDUCATION PROVIDED ON THE IMPORTANCE OF TAKING MEDICATIONS PRESCRIBED. ENDORSED CARE TO PM SHIFT. CALL LIGHT WITHIN REACH. BED IN LOW LOCKED POSITION.
[2017-07-29 19:25] VITALS: BP 122/66
--- NOTE | 2017-07-29 19:25 | NUR ---
MS RN OPENING NOTES: PATIENT IN BED, AOX1, ON ROOM AIR, BREATHING EVEN AND UNLABORED. APPEARS CALM AND IN NO DISTRESS. EMEKA MIDLINE INTACT AND PATENT TO FLUSH. PROVIDED FOR COMFORT AND SAFETY. BED IN LOWEST AND LOCKED POSITION, SIDERAILS UP X 3. PATIENT WILL BE D'ANTHONY TO SNF, AWAITING AMBULANCE. WILL CONT TO MONITOR.
--- NOTE | 2017-07-29 19:28 | NUR ---
RN NOTES: AMBULANCE ARRIVED TO SCUBA DIVING INSTRUCTOR PATIENT. VS CHECKED: TEMP: 98.2, HR: 88, BP : 122/66, RR: 16 O2 SAT 90% ON ROOM AIR. REPORT GIVEN. EMEKA MIDLINE REMOVED, WITHOUT BLEEDING NOTED.
--- NOTE | 2017-07-29 19:35 | NUR ---
MS FREIGHT BREAKER NOTES: PATIENT WAS DISCHARGED FROM MS FLOOR VIA GURNEY, IN STABLE CONDITION.
== END 2017-07-29 19:30 | DRG 952 ==
LOC: ER 15:45 → TELE 18:09 → UNDOADMIN 18:09 → MED 20:34 → TELE 22:25 → MED 07-23 08:47 → UNDODISIN 07-24 12:45
PROVIDERS: ADMIT Internal Medicine; ATTEND Internal Medicine
PROC: 0QBL0ZZ Excision of Right Tarsal, Open Approach (ICD-10-PCS; principal; 2017-07-23)
PROC: 05H633Z Insertion of Infusion Device into Left Subclavian Vein, Percutaneous Approach (ICD-10-PCS; principal; 2017-07-23)
PROC: 5A1D70Z Performance of Urinary Filtration, Intermittent, Less than 6 Hours Per Day (ICD-10-PCS; 2017-07-24)
PROC: 5A1D70Z Performance of Urinary Filtration, Intermittent, Less than 6 Hours Per Day (ICD-10-PCS; 2017-07-26)
PROC: 5A1D70Z Performance of Urinary Filtration, Intermittent, Less than 6 Hours Per Day (ICD-10-PCS; 2017-07-28)
DX: N39.0 Urinary tract infection, site not specified (principal); G92 Toxic encephalopathy; N18.6 End stage renal disease; E46 Unspecified protein-calorie malnutrition; L89.150 Pressure ulcer of sacral region, unstageable; I12.0 Hypertensive chronic kidney disease with stage 5 chronic kidney disease or end stage renal disease; E11.51 Type 2 diabetes mellitus with diabetic peripheral angiopathy without gangrene; E11.22 Type 2 diabetes mellitus with diabetic chronic kidney disease; L97.419 Non-pressure chronic ulcer of right heel and midfoot with unspecified severity; E78.5 Hyperlipidemia, unspecified; F32.9 Major depressive disorder, single episode, unspecified; F41.9 Anxiety disorder, unspecified; K21.9 Gastro-esophageal reflux disease without esophagitis; J44.9 Chronic obstructive pulmonary disease, unspecified; R62.7 Adult failure to thrive; Z79.899 Other long term (current) drug therapy; Z86.73 Personal history of transient ischemic attack (TIA), and cerebral infarction without residual deficits; Z99.2 Dependence on renal dialysis; Z89.512 Acquired absence of left leg below knee; L98.8 Other specified disorders of the skin and subcutaneous tissue; L89.010 Pressure ulcer of right elbow, unstageable; B96.20 Unspecified Escherichia coli [E. coli] as the cause of diseases classified elsewhere; S91.001A Unspecified open wound, right ankle, initial encounter; X58.XXXA Exposure to other specified factors, initial encounter; Y93.9 Activity, unspecified; Y92.129 Unspecified place in nursing home as the place of occurrence of the external cause; Z68.1 Body mass index [BMI] 19.9 or less, adult; F43.22 Adjustment disorder with anxiety; M24.574 Contracture, right foot; M24.575 Contracture, left foot; H40.9 Unspecified glaucoma; S82.201D Unspecified fracture of shaft of right tibia, subsequent encounter for closed fracture with routine healing; L89.510 Pressure ulcer of right ankle, unstageable
CPT/HCPCS: 36415; 36569; 71010-TC; 80048-TC; 80076-TC; 80170-TC; 80202-TC; 81000-TC; 82962-TC; 83605-TC; 83735-TC; 84100-TC; 84134-TC; 84484-TC; 85025-TC; 85730-TC; 87040-TC; 87081-TC; 87086-TC; 87186-TC; 90935-TC; A4606; A6253; A6402; J1580; J1815; J2405; J2543; J3475; J3480; J3490; J7050; J7060; Z7610

== ENCOUNTER 2017-08-03 14:33 | Inpatient (IN) | payer OTHER ==
[~2017-08-03] VITALS: Ht 157.5 cm; Wt 76.5 kg
[~2017-08-03 14:33] MED LIST changes: -ACET-868 PO; +AMIN30LI4 PO; +BRIN8DRO EACHEYE; -CLON0.1T PO; +FAMO20TA8 PO; -FOLI0.8T2 PO; -HYDR-3326 PO; +HYDR-3974 PO; +NUT.237L67 PO; -PANT40TA2 PO; +SENN-167 PO; +SEVE0.8P3 PO; -SEVE800T8 PO; +TIMO5DRO18 EACHEYE
--- NOTE | 2017-08-03 14:40 | NUR ---
BBPA FROM [facility]: FAILURE TO THRIVE, POOR ORAL INTAKE. NAD NOTED, VSS, RESP EVEN AND UNLABORED. PT PUT ON MONITOR, WAITING FOR MD KING.
[2017-08-03] MEDS ORDERED: ONDANSETRON HCL/PF 4 MG/2 ML VIAL IVP ONE (16:00)
[2017-08-03] MEDS ORDERED: IV NS 0.9% 1,000 ML BAG IV ONE (16:00)
[2017-08-03 16:19] LABS: BASOPHILS # (AUTO) 0.7 /CMM (0.0-0.2); BASOPHILS % (AUTO) 4.1 % (0.0-2.0); EOSINOPHILS % (AUTO) 0.2 % (0.0-6.0); HEMATOCRIT 29 % (33-45); HEMOGLOBIN 9.9 g/dL (11.5-14.8); LYMPHOCYTES # (AUTO) 3.4 /CMM (0.8-4.8); LYMPHOCYTES % (AUTO) 19.8 % (20.0-44.0); MEAN CORPUSCULAR HEMOGLOBIN 30 PG (26.0-33.0); MEAN CORPUSCULAR HGB CONC 34 g/dl (31.0-36.0); MEAN CORPUSCULAR VOLUME 88 fL (82-100); MONOCYTES # (AUTO) 1.5 /CMM (0.1-1.30); MONOCYTES % (AUTO) 8.6 % (2.0-12.0); NEUTROPHILS # (AUTO) 11.4 /CMM (1.8-8.9); NEUTROPHILS % (AUTO) 67.3 % (43.0-81.0); PLATELET COUNT (AUTO) 269 /CMM (150-450); RED BLOOD CELL COUNT(AUTO) 3.32 MIL/uL (4.0-5.2)
[2017-08-03 16:29] LABS: CALCIUM, SERUM 8.2 mg/dL (8.5-10.1); CARBON DIOXIDE 26 mmol/L (21-32); CHLORIDE 100 mmol/L (98-107); CREATININE 2.4 mg/dL (0.6-1.3); GLUCOSE 65 mg/dL (74-106); POTASSIUM 3.4 mmol/L (3.5-5.1); SODIUM SERUM 134 mmol/L (136-145); UREA NITROGEN, BLOOD 9 mg/dL (7-18)
[2017-08-03 16:32] LABS: INR 1.11 (0.87-1.13)
[2017-08-03 16:32] LABS: APPEARANCE,URINE Cloudy (CLEAR); BILIRUBIN,URINE SMALL (NEGATIVE); BLOOD, URINE Moderate Ery/uL (NEGATIVE); COLOR,URINE Dark (YELLOW); KETONES,URINE 15 (NEGATIVE); LEUKOCYTE ESTERASE ,URINE Large (NEGATIVE); NITRITE, URINE Negative (NEGATIVE); PROTEIN,URINE 100 mg/dl (NEGATIVE); UGLUCOSE Negative (NEGATIVE); UROBILINOGEN,URINE 0.2 EU/dL (0.2)
[2017-08-03 16:34] LABS: PH,URINE >8.5 (5.0-8.0)
[2017-08-03 16:36] LABS: TROPONIN I < 0.017 ng/mL (0.00-0.056)
[2017-08-03] MEDS ORDERED: ONDANSETRON HCL/PF 4 MG/2 ML VIAL ONE (16:37)
[2017-08-03 16:39] LABS: BACTERIA,URINE Few /HPF (None Seen); SQUAMOUS EPITHELIAL CELL,UR Few /HPF (None Seen); WBC,URINE 80-100 /HPF (0-3)
[2017-08-03 16:44] LABS: ALANINE AMINOTRANSFERASE 11 U/L (12-78); ALBUMIN 1.7 g/dL (3.4-5.0); ALKALINE PHOSPHATASE 146 U/L (46-116); ASPARTATE AMINOTRANSFERASE 24 U/L (15-37); BILIRUBIN,DIRECT 0.2 mg/dL (0.0-0.2); BILIRUBIN,TOTAL 0.6 mg/dL (0.2-1.0); TOTAL PROTEIN, SERUM 6.5 g/dL (6.4-8.2)
[2017-08-03] MEDS ORDERED: DEXTROSE 50%-WATER 50 ML DISP.SYRIN ONE (17:15)
--- NOTE | 2017-08-03 17:28 | NUR ---
CALLED FOR PANEL WITH [facility]
[2017-08-03] MEDS ORDERED: DEXTROSE 50%-WATER 50 ML DISP.SYRIN IVP ONE (17:30)
[2017-08-03] MEDS ORDERED: PIPERACILLIN /TAZOBACTAM 3.375 G in IV D5W 50 ML IV ONE (18:00)
--- NOTE | 2017-08-03 18:03 | NUR ---
called for delores
[2017-08-03] MEDS ORDERED: ASCO-340 PO (18:14)
[2017-08-03] MEDS ORDERED: MULT-447 PO (18:14)
[2017-08-03] MEDS ORDERED: ACET325T53 PO (18:48)
[2017-08-03] MEDS ORDERED: ATOR10TA PO (18:48)
[2017-08-03] MEDS ORDERED: MIRT15TA PO (18:48)
[2017-08-03] MEDS ORDERED: ZINC220C6 PO (18:48)
[2017-08-03] MEDS ORDERED: INSU100V10 SQ (18:48)
[2017-08-03] MEDS ORDERED: INSU100I4 SQ (18:48)
[2017-08-03] MEDS ORDERED: MEGE400O4 PO (18:48)
--- NOTE | 2017-08-03 18:57 | NUR ---
PATIENT ASSIGNED TO 312-2, ACCEPTED BY DR BERNAL
[2017-08-03 20:00] VITALS: BP 107/49
--- NOTE | 2017-08-03 20:00 | NUR ---
RN NOTES RECEIVED PT FROM ER , TRANSFERRED TO BED SAFELY. PT IS AWAKE, A/O X1 [facility] HELENIAN SPEAKING, SISTER AT BEDSIDE. NO DISTRESS, NO SOB NOTED AT THIS TIME. RESPIRATION IS EVEN AND UNLABORED. IV SITE ON MARIPOSA INTACT AND PATENT, WITH NO S/S OF INFILTRATION NOTED. LCW PERMACATH INTACT WITH CLEAN DRESSING. NO BLEEDING NOTED. FC IS INTACT AND PATENT DRAINING WITH YELLOW URINE, NO HEMATURIA NOTED. BODY CHECK DONE. ALL NEEDS ATTENDED AND MET,KEPT COMFORTABLE. WILL CONT TO MONITOR. BED ON, LOWEST LEVEL. CALL LIGHT WITHIN REACH.
--- NOTE | 2017-08-03 20:30 | NUR ---
PLACED A CALL TO DR. BERNAL REGARDING ADMISSION ORDEREDS, AWAITING FOR MD'S CALL BACK
--- NOTE | 2017-08-03 22:20 | NUR ---
RECEIVED ADMISSION ORDERS FROM DR. BERNAL , WITH NEW ORDERS, NOTED AND CARRIED OUT
[2017-08-03] MEDS ORDERED: DEXTROSE 50%-WATER 50 ML DISP.SYRIN IV PRN (22:30)
[2017-08-03] MEDS: BLOOD SUGAR DIAGNOSTIC 1 EACH STRIP IN SCH (23:16)
[2017-08-04] MEDS: PIPERACILLIN /TAZOBACTAM 2.25 G in IV D5W 50 ML IV SCH ×4 (00:23→21:18)
[2017-08-04] MEDS ORDERED: Z GUARD REMEDY 4 OZ OINT TP PRN (03:30)
[2017-08-04] MEDS ORDERED: PIPERACILLIN /TAZOBACTAM 2.25 G VIAL IV ONE ×2 (05:06)
[2017-08-04] MEDS: BLOOD SUGAR DIAGNOSTIC 1 EACH STRIP IN SCH ×4 (05:47→21:47)
--- NOTE | 2017-08-04 05:47 | NUR ---
PT'S BS : 76 AT THIS TIME, PT ABLE TO DRINK ORANGE JUICE AND EAT APPLE SAUCE, CECILY WELL. ASPIRATION PRECAUTION OBSERVED.
--- NOTE | 2017-08-04 06:49 | NUR ---
RN NOTES PT IS IN BED, RESTING COMFORTABLY. AROUSES EASILY,A/O X1 UZBEK SPEAKING. NO DISTRESS, NO SOB NOTED AT THIS TIME. RESPIRATION IS EVEN AND UNLABORED. IV SITE ON MARIPOSA INTACT AND PATENT, WITH NO S/S OF INFILTRATION NOTED. LCW PERMACATH INTACT WITH CLEAN DRESSING. NO BLEEDING NOTED. FC IS INTACT AND PATENT DRAINING WITH YELLOW URINE, NO HEMATURIA NOTED. BODY CHECK DONE. ALL NEEDS ATTENDED AND MET,KEPT COMFORTABLE. BED ON, LOWEST LEVEL. CALL LIGHT WITHIN REACH. WILL ENDORSE TO NEXT SHIFT FOR YVES.
[2017-08-04 08:00] VITALS: BP_SYST 145; BP_SYST 93; BP_DIAS 42; BP_DIAS 75
--- NOTE | 2017-08-04 08:00 | NUR ---
ms rn received on bed, awake,alert x1,not in distress, respirations even and unlabored,no sob noted,respirations even and unlabored,no sob noted, douglas to gravity w/ tea colored urine output,will continue to monitor.
--- NOTE | 2017-08-04 08:20 | NUR ---
ms rn breakfast served, refusing po intake.
--- NOTE | 2017-08-04 10:23 | NUR ---
WOUND CARE CONSULT: PT PRESENTS WITH STAGE 2 ULCER TO SACRUM, RT ANKLE ESCHAR, STAGE 4 ULCER TO RT HEEL WITH INTACT DTI TO RT LATERAL FOOT, ALL PRESENT ON ADMISSION. LEFT BK STUMP NOTED. PT HAS RT LOWER EXTREMITY DRAWN UP TO HER HIP MAKING OFFLOADING DIFFICULT. PT REFUSED TO BE TURNED TO OTHER SIDE FOR FULL SKIN ASSESSMENT. RECOMMEND DPM CONSULT. ALL SKIN PROTECTION AND WOUND RECOMMENDATIONS DISCUSSED WITH NURSING STAFF. WILL SEE PRN. CURRENT ZO SCORE IS 11. ISOFLEX LOW AIRLOSS BED TO BE PLACED. MD IN AGREEMENT WITH PLAN OF CARE. Addendum: 08/04/17 at 1027 by MILES MCKEON WNDNU Amended: Links added.
[2017-08-04] MEDS: FOLIC ACID 1 MG TABLET PO SCH (10:30)
[2017-08-04] MEDS: ZINC SULFATE 220 MG CAPSULE PO SCH (10:30)
[2017-08-04] MEDS: FAMOTIDINE (20 MG) 20 MG TABLET PO SCH (10:30)
[2017-08-04] MEDS: AMLODIPINE BESYLATE 10 MG TABLET PO SCH (10:30)
[2017-08-04] MEDS: LORAZEPAM 1 MG TABLET PO SCH (10:30)
[2017-08-04] MEDS: HYDROGEL DRESSING 90 GM TUBE TP SCH (10:30)
[2017-08-04] MEDS: CLOPIDOGREL BISULFATE 75 MG TABLET PO SCH (10:30)
[2017-08-04] MEDS ORDERED: EPOETIN ALFA (10,000 UNIT) 10,000 UNIT/ML VIAL IV ONE (11:00)
[2017-08-04] MEDS: PROSOURCE / PROSTAT (PYXIS) 30 ML UDC PO SCH (11:00)
[2017-08-04] MEDS ORDERED: CEFTRIAXONE 1 G in IV D5W 50 ML IV SCH (11:00)
[2017-08-04 11:44] LABS: ALBUMIN 1.5 g/dL (3.4-5.0); BILIRUBIN,TOTAL 0.7 mg/dL (0.2-1.0); CALCIUM, SERUM 7.9 mg/dL (8.5-10.1); CREATININE 2.8 mg/dL (0.6-1.3); MAGNESIUM 1.6 mg/dL (1.8-2.4); PHOSPHORUS 1.9 mg/dL (2.5-4.9); POTASSIUM 3.6 mmol/L (3.5-5.1)
[2017-08-04] MEDS ORDERED: Medication Not On Formulary EA (Blood Sugar Diagnostic, Drum (Accu-Chek Compact) 1 EACH) IN SCH (12:00)
[2017-08-04 12:02] LABS: INR 1.17 (0.87-1.13)
[2017-08-04 12:27] LABS: EOSINOPHILS % (AUTO) 0.2 % (0.0-6.0); HEMATOCRIT 29 % (33-45); HEMOGLOBIN 9.9 g/dL (11.5-14.8); LYMPHOCYTES # (AUTO) 1.9 /CMM (0.8-4.8); LYMPHOCYTES % (AUTO) 12.4 % (20.0-44.0); MEAN CORPUSCULAR HEMOGLOBIN 31 PG (26.0-33.0); MEAN CORPUSCULAR HGB CONC 34 g/dl (31.0-36.0); MEAN CORPUSCULAR VOLUME 90 fL (82-100); MONOCYTES # (AUTO) 1.2 /CMM (0.1-1.30); MONOCYTES % (AUTO) 7.7 % (2.0-12.0); NEUTROPHILS # (AUTO) 12.2 /CMM (1.8-8.9); NEUTROPHILS % (AUTO) 79.7 % (43.0-81.0); PLATELET COUNT (AUTO) 248 /CMM (150-450); RDW COEFFICIENT OF VARIATION 15.7 (11.5-15.0); WHITE BLOOD COUNT (AUTO) 15.3 K/uL (4.3-11.0)
[2017-08-04] MEDS: SEVELAMER CARBONATE 0.8 GM POWD.PACK PO SCH ×2 (13:00→18:00)
[2017-08-04] MEDS ORDERED: K PHOS NEUTRAL 250 MG TABLET PO ONE (15:00)
[2017-08-04 16:00] VITALS: BP 105/45
[2017-08-04] MEDS: RENAL NOVASOURCE (8OZ) 1 EA BOX PO SCH (17:00)
[2017-08-04] MEDS: ATROPINE SULFATE OPHTH SOLN 15 ML BOTTLE EACHEYE SCH (17:00)
[2017-08-04] MEDS: DOCUSATE SODIUM 100 MG CAPSULE PO SCH (17:00)
[2017-08-04] MEDS: TIMOLOL 0.5% SOLN OPHTH 5 ML BOTTLE EACHEYE SCH (17:00)
[2017-08-04] MEDS: acetaZOLAMIDE 250 MG TABLET PO SCH (17:00)
[2017-08-04] MEDS ORDERED: Brinzolamide/Brimonid Tart (Simbrinza 1%-0.2% Eye Drops EACHEYE SCH (17:00)
--- NOTE | 2017-08-04 17:19 | NUR ---
ms rn daughter at bedside, still refusing po intake.
--- NOTE | 2017-08-04 18:00 | NUR ---
MS RN BS 67 - NO COVERAGE GIVE, ORANGE JUICE GIVEN BY FAMILY, PAGED DR. CASTILLO, WAS TOLD THAT DR. JULIO WILL BE HERE TOMORROW.
[2017-08-04] MEDS: MEGESTROL ACETATE SUSP 400 MG/10 ML UDC PO SCH (18:36)
[2017-08-04] MEDS: BRIMONIDINE TARTRATE OPHT SOLN 5 ML BOTTLE EACHEYE SCH (18:54)
[2017-08-04] MEDS: prednisoLONE ACET 1% OPHT DROP 5 ML BOTTLE LEFTEYE SCH ×2 (18:54→21:17)
[2017-08-04] MEDS: HYDROGEL DRESSING 90 GM TUBE TP PRN (18:54)
[2017-08-04] MEDS: LATANOPROST EYE DROP 0.005% 2.5 ML BOTTLE EACHEYE SCH (18:55)
--- NOTE | 2017-08-04 19:00 | NUR ---
MS RN ON BED, NO CHANGE OF CONDITION.
[2017-08-04 20:50] VITALS: BP 126/79
--- NOTE | 2017-08-04 21:07 | NUR ---
PATIENT'S VITALS, BP 57/65, HR 89, 20, 97.6, 97% ON ROOM AIR. HEMODIALYSIS STARTED. HD TECH STATED THAT SHE IS JUST GOING TO CLEAN AND NOT DIALYZED TONIGHT.
[2017-08-04] MEDS: ATORVASTATIN 10 MG TABLET PO SCH (21:21)
[2017-08-04] MEDS: SENNOSIDES 8.6 MG TABLET PO SCH (21:21)
[2017-08-04] MEDS: MIRTAZAPINE 15 MG TABLET PO SCH (21:21)
[2017-08-04] MEDS ORDERED: ALBUMIN 25% 100 ML IV ONE ×2 (21:24→21:38)
[2017-08-04] MEDS ORDERED: ALBUMIN 25% 25 GM in PREMIX 1 EA IV SCH (21:30)
--- NOTE | 2017-08-04 21:42 | NUR ---
LATEST BP NOW @ 2115 105/61, HR 58, ALBUMIN IV GIVEN BY HD TECH. WILL CONTINUE TO MONITOR.
[2017-08-04] MEDS: INSULIN DETEMIR 100 UNIT/ML CARTRIDGE SQ SCH (21:48)
--- NOTE | 2017-08-04 21:50 | NUR ---
LEVEMIR INSULIN NOT GIVEN, PATIENT REFUSED TOEAT, HAS POOR APPETITE, MD AWARE.
--- NOTE | 2017-08-04 21:50 | NUR ---
ACCUCHECK 84 MG/DL, NO INSULIN GIVEN, PATIENT REFUSED TO EAT, MD AWARE,
[2017-08-04] MEDS ORDERED: ALBUMIN 25% 25 GM in PREMIX 1 EA IV ONE (22:28)
[2017-08-05] MEDS: PIPERACILLIN /TAZOBACTAM 2.25 G in IV D5W 50 ML IV SCH ×3 (05:40→21:08)
[2017-08-05] MEDS: prednisoLONE ACET 1% OPHT DROP 5 ML BOTTLE LEFTEYE SCH ×3 (06:49→21:14)
[2017-08-05] MEDS: ATROPINE SULFATE OPHTH SOLN 15 ML BOTTLE EACHEYE SCH ×2 (06:51→17:00)
[2017-08-05] MEDS: acetaZOLAMIDE 250 MG TABLET PO SCH ×2 (06:51→16:52)
[2017-08-05] MEDS: BLOOD SUGAR DIAGNOSTIC 1 EACH STRIP IN SCH ×4 (06:51→22:07)
--- NOTE | 2017-08-05 06:52 | NUR ---
PATIENT REFUSED DIAMOX TAB THIS AM DUE 0700. ACCHUCHECK 81 MG/DL.
[2017-08-05] MEDS: FAMOTIDINE (20 MG) 20 MG TABLET PO SCH (07:30)
[2017-08-05] MEDS: SEVELAMER CARBONATE 0.8 GM POWD.PACK PO SCH ×3 (07:53→17:25)
[2017-08-05 08:00] VITALS: BP 120/55
--- NOTE | 2017-08-05 08:00 | NUR ---
RN NOTES RECEIVED PATIENT IN THE ROOM A/O X2 [employer] SPEAKER, NO C/O PAIN AT THIS TIME, NO RESPIRATORY DISTRESS. PATIENT IS BLIND, ALSO HAS A LEFT BKA, V/S TAKEN STABLE, IV ACCESS LINE ON RIGHT UPPER ARM, ALSO HAS A HD LINE ON RIGHT UPPER CHEST , PATIENT SCHEDULED G-TUBE PLACEMENT, KEEP PATIENT NPO, BUT CONSENT FORM NOT SIGNED BECAUSE OF FAMILY WANTED TALK TO THE SURGEON. PATIENT ON [employer], ASSIST TURN AND REPOSITION Q 2 HR, PATIENT ON F/C DRAIN LIGHT YELLOW OUTPUT INTACT, PATIENT INCONTINENT OF BOWEL, NEEDS ATTENDED AND ANTICIPATED, CALL LIGHT WITHIN TO REACH, SAFETY PRECAUTION MAINTAINED ALL THE TIME WITH HELP OF ROCK CUTTER..
[2017-08-05] MEDS: RENAL NOVASOURCE (8OZ) 1 EA BOX PO SCH ×2 (09:00→17:26)
[2017-08-05] MEDS: FOLIC ACID 1 MG TABLET PO SCH (09:00)
[2017-08-05] MEDS: TIMOLOL 0.5% SOLN OPHTH 5 ML BOTTLE EACHEYE SCH ×2 (09:00→19:47)
[2017-08-05] MEDS: MEGESTROL ACETATE SUSP 400 MG/10 ML UDC PO SCH ×2 (09:00→16:52)
[2017-08-05] MEDS: PROSOURCE / PROSTAT (PYXIS) 30 ML UDC PO SCH (09:00)
[2017-08-05] MEDS: ZINC SULFATE 220 MG CAPSULE PO SCH (09:00)
[2017-08-05] MEDS: MULTIVIT, IRON, MIN NO. 8, FA 1 TAB PO SCH (09:00)
[2017-08-05] MEDS: ASCORBIC ACID 500 MG TABLET PO SCH (09:00)
[2017-08-05] MEDS: AMLODIPINE BESYLATE 10 MG TABLET PO SCH (09:00)
[2017-08-05] MEDS: CLOPIDOGREL BISULFATE 75 MG TABLET PO SCH (09:00)
[2017-08-05] MEDS: DOCUSATE SODIUM 100 MG CAPSULE PO SCH ×2 (09:00→16:52)
--- NOTE | 2017-08-05 10:00 | NUR ---
RN NOTES CALLED PATIENT DAUGHTER NAME CASSIDY GET CONSENT FORM VERBAL, BECAUSE PATIENT UNABLE TO SIGHT CONSENT FORM, PATIENT SCHEDULED GASTROSTOMY TUBE PLACEMENT. GET VERBAL ORDER SIGNED BY TWO NURSES EMS MANAGER NURSE NAME CARIE. PATIENT BRANCH SALES MANAGER AT THIS TIME FOR SURGERY, V/S TAKEN STABLE, NO ACUTE RESPIRATORY DISTRESS.
[2017-08-05 10:10] LABS: BASOPHILS # (AUTO) 0.1 /CMM (0.0-0.2); BASOPHILS % (AUTO) 0.4 % (0.0-2.0); EOSINOPHILS % (AUTO) 0.3 % (0.0-6.0); HEMATOCRIT 28 % (33-45); HEMOGLOBIN 9.4 g/dL (11.5-14.8); LYMPHOCYTES # (AUTO) 1.7 /CMM (0.8-4.8); MEAN CORPUSCULAR HEMOGLOBIN 30 PG (26.0-33.0); MEAN CORPUSCULAR HGB CONC 33 g/dl (31.0-36.0); MEAN CORPUSCULAR VOLUME 89 fL (82-100); MONOCYTES % (AUTO) 6.9 % (2.0-12.0); NEUTROPHILS # (AUTO) 12.2 /CMM (1.8-8.9); NEUTROPHILS % (AUTO) 81.4 % (43.0-81.0); PLATELET COUNT (AUTO) 203 /CMM (150-450); RDW COEFFICIENT OF VARIATION 15.3 (11.5-15.0); RED BLOOD CELL COUNT(AUTO) 3.19 MIL/uL (4.0-5.2)
[2017-08-05 10:19] LABS: CALCIUM, SERUM 6.8 mg/dL (8.5-10.1); CREATININE 2.1 mg/dL (0.6-1.3); MAGNESIUM 1.6 mg/dL (1.8-2.4); PHOSPHORUS 1.2 mg/dL (2.5-4.9)
[2017-08-05 11:36] LABS: POTASSIUM 2.8 mmol/L (3.5-5.1)
[2017-08-05] MEDS ORDERED: EPHEDRINE SULFATE IV 50MG VIAL ONE (11:42)
[2017-08-05] MEDS ORDERED: POTASSIUM CHLORIDE 20 MEQ TAB.PRT.SR PO ONE (12:00)
--- NOTE | 2017-08-05 12:00 | NUR ---
RN NOTES PATIENT RETURNED BACK FROM PROCEDURE, V/S TAKEN BP 86/48, P-105, O2- 93 NC , T- 97.8, MD ORDER TAKEN AND CARRIED OUT. STARTED NS AT 75 ML/HR, V/S PER ROUTINE, MAY USE G-TUBE IN 2 HR. CALL LIGHT WITHIN TO REACH, DR CASTILLO AWARE OF LABS, ORDER TAKEN, CONTINUED MONITORING.
[2017-08-05] MEDS ORDERED: IV NS 0.9% 1,000 ML BAG IV SCH (13:00)
[2017-08-05] MEDS: IV NS 0.9% 1,000 ML IV PRN (13:08)
[2017-08-05] MEDS: HYDROGEL DRESSING 90 GM TUBE TP PRN (13:32)
[2017-08-05] MEDS: HYDROGEL DRESSING 90 GM TUBE TP SCH (13:33)
[2017-08-05] MEDS: BRIMONIDINE TARTRATE OPHT SOLN 5 ML BOTTLE EACHEYE SCH ×2 (13:34→16:54)
[2017-08-05 16:00] VITALS: BP 94/53
[2017-08-05] MEDS ORDERED: K PHOS NEUTRAL 250 MG TABLET PO ONE ×2 (16:30→17:00)
[2017-08-05] MEDS ORDERED: POTASSIUM CHLORIDE 20 MEQ POWDER PACKET PO ONE (17:00)
[2017-08-05] MEDS ORDERED: NEUTRA PHOS 1 POWD.PACKET GT ONE (17:00)
--- NOTE | 2017-08-05 17:00 | NUR ---
RN NOTES STARTED RENAL NOVASOURCE 20 ML/HR, ALSO SCHEDULED MEDICATION ADMINISTERED VIA G-TUBE, NO RESIDUAL, PLACEMENT CHECKED, V/S RETAKEN BP 94/ 53, P-101, R-20, O2-2L 97 %NC, NEEDS ATTENDED AND ANTICIPATED, DRESSING CHANGED, F/C DRAIN LIGHT YELLOW OUTPUT. CLL LIGHT WITHIN TO REACH, CONTINUED MONITORING.
[2017-08-05] MEDS: RENAL NOVASOURCE 1,000 ML BOTTLE GT SCH (17:25)
--- NOTE | 2017-08-05 18:30 | NUR ---
RN NOTES PATIENT C/O NAUSEA AND VOMIT X2, HOB ELEVATED, ASPIRATION PRECAUTION MAINTAINED, F/C DRAIN 200 ML OUTPUT, SCHEDULED MEDICATION ADMINISTERED, CALL LIGHT WITHIN TO REACH. SISTER NEXT TO THE BED. ENDORSED ONCOMING NURSE FOR CONTINUATION OF CARE.
--- NOTE | 2017-08-05 19:40 | NUR ---
MS RN OPENING NOTES RECEIVED PATIENT IN THE ROOM A & O X 1-2 TURKMEN SPEAKER, NO S/S OF PAIN AT THIS TIME, NO ACUTE RESPIRATORY DISTRESS NOTED. SISTER @ BEDSIDE. PATIENT IS BLIND, HAS A LEFT BKA, IV ACCESS TO MARIPOSA, HAS A HD LINE ON LEFT UPPER CHEST , ON GTF WITH NOVASOURCE RENAL @ 20ML/HR. PLACEMENT, PATENCY CHECKED. PATIENT ON [employer] MATRASS, ASSIST TURN AND REPOSITION Q 2 HR, PATIENT ON F/C DRAINING LIGHT YELLOW URINE, INCONTINENT OF BOWEL, BED IN LOW LOCKED POSITION. CALL LIGHT WITHIN TO REACH, SAFETY MEASURES IN PLACE. WILL CONTINUE TO MONITOR.
[2017-08-05 20:00] VITALS: BP 94/47
[2017-08-05 20:30] VITALS: BP 101/60
[2017-08-05] MEDS: SENNOSIDES 8.6 MG TABLET PO SCH (22:05)
[2017-08-05] MEDS: MIRTAZAPINE 15 MG TABLET PO SCH (22:05)
[2017-08-05] MEDS: ATORVASTATIN 10 MG TABLET PO SCH (22:05)
[2017-08-05] MEDS: LATANOPROST EYE DROP 0.005% 2.5 ML BOTTLE EACHEYE SCH (22:07)
[2017-08-05] MEDS: INSULIN DETEMIR 100 UNIT/ML CARTRIDGE SQ SCH (22:07)
[2017-08-06] MEDS: IV NS 0.9% 1,000 ML IV PRN ×2 (02:53→19:58)
[2017-08-06] MEDS: PIPERACILLIN /TAZOBACTAM 2.25 G in IV D5W 50 ML IV SCH ×3 (04:55→20:44)
[2017-08-06] MEDS: RENAL NOVASOURCE 1,000 ML BOTTLE GT SCH (05:33)
[2017-08-06] MEDS: prednisoLONE ACET 1% OPHT DROP 5 ML BOTTLE LEFTEYE SCH ×3 (05:34→20:59)
--- NOTE | 2017-08-06 06:43 | NUR ---
MS RN CLOSING NOTES PATIENT SLEPT INTERMITTENTLY @ NIGHT. A & O X 1-2 KAZAKH SPEAKER, NO S/S OF PAIN, NO ACUTE RESPIRATORY DISTRESS NOTED. PATIENT IS BLIND, HAS A LEFT BKA, IV ACCESS TO MARIPOSA, HAS A HD LINE ON LEFT UPPER CHEST , ON GTF WITH NOVASOURCE RENAL @ 20ML/HR. PLACEMENT, PATENCY CHECKED. NO N/V NOTED. FEEDING TOLERATING WELL. WOUND DRESSINGS CHANGED. PATIENT ON [employer]CI MATRASS, ASSISTED TURN AND REPOSITION Q 2 HR, PATIENT ON F/C DRAINING LIGHT YELLOW URINE, INCONTINENT OF BOWEL, BED IN LOW LOCKED POSITION. CALL LIGHT WITHIN TO REACH, SAFETY MEASURES IN PLACE. WILL ENDORSE TO AM RN FOR CONTINUITY OF CARE.
[2017-08-06] MEDS: BLOOD SUGAR DIAGNOSTIC 1 EACH STRIP IN SCH ×4 (06:53→22:49)
[2017-08-06] MEDS: INSULIN REGULAR, HUMAN 100 UNIT/ML 3 ML VIAL SQ PRN ×3 (06:55→22:55)
[2017-08-06] MEDS: ATROPINE SULFATE OPHTH SOLN 15 ML BOTTLE EACHEYE SCH ×2 (07:00→17:00)
--- NOTE | 2017-08-06 07:20 | NUR ---
MS RN OPENING NOTES PT RECEIVED A&0X1, GERMAN SPEAKING. PT TOLERATING ROOM AIR WITH NO S/S OF RESP DISTRESS. PT VERBALIZING NO PAIN. PT WITH KHALIL INTACT AND OPERATIONAL WITH TEA YELLOW URINE COLLECTED. PT WITH G TUBE INTACT AND OPERATIONAL WITH RENAL NOVASOURCE AT 20ML/HR, ENDORSED TO INCREASE TO 30ML/PH AT 1700 TODAY 08/06/17. PT BED IN LOWEST LOCKED POSITION WITH HAND RAILSX3 AND CALL GARCIA WITHIN REACH. PT BRIEFED ON TODAY'S POC AND WILL REORIENT NEED.
[2017-08-06 08:00] VITALS: BP 120/47
[2017-08-06] MEDS: AMLODIPINE BESYLATE 10 MG TABLET PO SCH (09:00)
[2017-08-06] MEDS: acetaZOLAMIDE 250 MG TABLET PO SCH ×2 (09:29→18:50)
[2017-08-06] MEDS: ASCORBIC ACID 500 MG TABLET PO SCH (09:29)
[2017-08-06] MEDS: DOCUSATE SODIUM 100 MG CAPSULE PO SCH ×2 (09:29→17:00)
[2017-08-06] MEDS: MULTIVIT, IRON, MIN NO. 8, FA 1 TAB PO SCH (09:29)
[2017-08-06] MEDS: FOLIC ACID 1 MG TABLET PO SCH (09:29)
[2017-08-06] MEDS: FAMOTIDINE (20 MG) 20 MG TABLET PO SCH (09:30)
[2017-08-06] MEDS: MEGESTROL ACETATE SUSP 400 MG/10 ML UDC PO SCH ×2 (09:30→17:00)
[2017-08-06] MEDS: ZINC SULFATE 220 MG CAPSULE PO SCH (09:30)
[2017-08-06] MEDS: SEVELAMER CARBONATE 0.8 GM POWD.PACK PO SCH ×3 (09:32→18:50)
[2017-08-06] MEDS: CLOPIDOGREL BISULFATE 75 MG TABLET PO SCH ×2 (09:32→10:35)
[2017-08-06] MEDS: BRIMONIDINE TARTRATE OPHT SOLN 5 ML BOTTLE EACHEYE SCH ×2 (10:25→17:00)
[2017-08-06] MEDS: PROSOURCE / PROSTAT (PYXIS) 30 ML UDC PO SCH (10:25)
[2017-08-06] MEDS: HYDROGEL DRESSING 90 GM TUBE TP SCH (10:28)
[2017-08-06] MEDS: TIMOLOL 0.5% SOLN OPHTH 5 ML BOTTLE EACHEYE SCH ×2 (10:34→17:00)
[2017-08-06] MEDS: LORAZEPAM 1 MG TABLET PO SCH (10:35)
[2017-08-06] MEDS: RENAL NOVASOURCE (8OZ) 1 EA BOX PO SCH ×2 (12:25→17:00)
[2017-08-06 15:23] LABS: BASOPHILS # (AUTO) 0.1 /CMM (0.0-0.2); BASOPHILS % (AUTO) 0.4 % (0.0-2.0); EOSINOPHILS # (AUTO) 0.1 /CMM (0.0-0.7); EOSINOPHILS % (AUTO) 0.6 % (0.0-6.0); HEMATOCRIT 26 % (33-45); HEMOGLOBIN 8.7 g/dL (11.5-14.8); LYMPHOCYTES # (AUTO) 1.5 /CMM (0.8-4.8); LYMPHOCYTES % (AUTO) 11.8 % (20.0-44.0); MEAN CORPUSCULAR HEMOGLOBIN 30 PG (26.0-33.0); MEAN CORPUSCULAR HGB CONC 33 g/dl (31.0-36.0); MEAN CORPUSCULAR VOLUME 88 fL (82-100); MONOCYTES # (AUTO) 0.8 /CMM (0.1-1.30); MONOCYTES % (AUTO) 6.3 % (2.0-12.0); NEUTROPHILS # (AUTO) 10.6 /CMM (1.8-8.9); NEUTROPHILS % (AUTO) 80.9 % (43.0-81.0); PLATELET COUNT (AUTO) 229 /CMM (150-450); RDW COEFFICIENT OF VARIATION 15.2 (11.5-15.0); RED BLOOD CELL COUNT(AUTO) 2.93 MIL/uL (4.0-5.2); WHITE BLOOD COUNT (AUTO) 13.1 K/uL (4.3-11.0)
[2017-08-06 15:33] LABS: CALCIUM, SERUM 7.2 mg/dL (8.5-10.1); CREATININE 2.7 mg/dL (0.6-1.3); MAGNESIUM 1.5 mg/dL (1.8-2.4); PHOSPHORUS 1.1 mg/dL (2.5-4.9)
[2017-08-06 15:50] LABS: POTASSIUM 2.3 mmol/L (3.5-5.1)
[2017-08-06 16:00] VITALS: BP 92/49
[2017-08-06] MEDS ORDERED: POTASSIUM CHLORIDE 10 MEQ/50 ML PREMIXED IVPB FOR PERIPHERAL LINE IV ONE (18:30)
[2017-08-06] MEDS ORDERED: POTASSIUM CHLORIDE 20 MEQ POWDER PACKET GT ONE (19:00)
--- NOTE | 2017-08-06 19:35 | NUR ---
MS RN OPENING NOTES RECEIVED PT IN BED AWAKE,ALERT,IVORIAN SPEAKING,FAMILY AT BEDSIDE,NO SOB, NO APPARENT DISTRESS NOTED. NO S/SX OF PAIN OR DISCOMFORT NOTED. GT IN PLACE,1ML RESIDUAL NOTED HOB ELEVATED, TOLERATES GTF WELL, NO N/V NOTED.F/C IN PLACE DRAINING YELLOW COLOR URINE. IV SITE INTACT,PATENT. CALL LIGHT WITHIN REACH.KEPT CLEAN AND COMFORTABLE.ATTENDED ALL NEEDS. WILL CONTINUE TO MONITOR ACCORDINGLY
--- NOTE | 2017-08-06 19:56 | NUR ---
MS RN CLOSING NOTES PT A&0X1, YI SPEAKING, WITH FAMILY AT BEDSIDE. PT TOLERATING ROOM AIR WITH NO S/S OF RESP DISTRESS. PT VERBALIZING NO PAIN. PT WITH KHALIL INTACT AND OPERATIONAL WITH TEA YELLOW URINE COLLECTED. PT WITH G TUBE INTACT AND OPERATIONAL WITH RENAL NOVASOURCE AT 30ML/HR. PT BED IN LOWEST LOCKED POSITION WITH HAND RAILSX3 AND CALL GARCIA WITHIN REACH. PT RECEIVED BED SIDE DEBRIDEMENT AND DOES NOT REQUIRE DRESSING CHANGE TONIGHT. PT AND FAMILY WITHOUT CONCERN OR COMPLAINT AT THIS TIME, WILL ENDORSE TO NIGHT NURSE.
[2017-08-06] MEDS: Potassium Chloride 10 MEQ in IV D5W 50 ML IV SCH ×4 (19:58→23:57)
[2017-08-06 20:00] VITALS: BP 93/50
[2017-08-06] MEDS: MUPIROCIN OINT 2% 22 GM TUBE SCH (20:58)
[2017-08-06] MEDS: LATANOPROST EYE DROP 0.005% 2.5 ML BOTTLE EACHEYE SCH (21:00)
[2017-08-06] MEDS: SENNOSIDES 8.6 MG TABLET PO SCH (21:04)
[2017-08-06] MEDS: ATORVASTATIN 10 MG TABLET PO SCH (21:04)
[2017-08-06] MEDS: MIRTAZAPINE 15 MG TABLET PO SCH (21:04)
[2017-08-06] MEDS: ACETAMINOPHEN 325 MG TABLET PO PRN (21:14)
[2017-08-06 22:00] VITALS: BP 98/60
[2017-08-06] MEDS: INSULIN DETEMIR 100 UNIT/ML CARTRIDGE SQ SCH (22:53)
[2017-08-07] MEDS: HYDROCODONE/APAP 5/325MG 1 EACH TABLET PO PRN (01:16)
[2017-08-07] MEDS: PIPERACILLIN /TAZOBACTAM 2.25 G in IV D5W 50 ML IV SCH ×3 (04:41→20:06)
[2017-08-07] MEDS: BLOOD SUGAR DIAGNOSTIC 1 EACH STRIP IN SCH ×4 (06:14→22:07)
[2017-08-07] MEDS: acetaZOLAMIDE 250 MG TABLET PO SCH (06:14)
[2017-08-07] MEDS: prednisoLONE ACET 1% OPHT DROP 5 ML BOTTLE LEFTEYE SCH ×3 (06:14→20:07)
[2017-08-07] MEDS: INSULIN REGULAR, HUMAN 100 UNIT/ML 3 ML VIAL SQ PRN ×4 (06:22→22:24)
--- NOTE | 2017-08-07 06:52 | NUR ---
MS RN CLOSING NOTES PT IN BED RESTING COMFORTABLY,ON O2 VIA N/C, NO SOB, NO APPARENT DISTRESS NOTED. IV SITE PATENT, NO S/SX OF PAIN OR DISCOMFORT NOTED. GT IN PLACE,TOLERATES GTF WELL HOB ELEVATED. F/C IN PLACE DRAINING YELLOW COLOR URINE. ATTENDED ALL NEEDS. WILL ENDORSE TO DAY SHIFT
[2017-08-07] MEDS: ATROPINE SULFATE OPHTH SOLN 15 ML BOTTLE EACHEYE SCH ×2 (07:00→17:00)
[2017-08-07 07:42] LABS: BASOPHILS # (AUTO) 0.1 /CMM (0.0-0.2); BASOPHILS % (AUTO) 0.5 % (0.0-2.0); EOSINOPHILS % (AUTO) 0.2 % (0.0-6.0); HEMATOCRIT 29 % (33-45); HEMOGLOBIN 9.6 g/dL (11.5-14.8); LYMPHOCYTES # (AUTO) 1.4 /CMM (0.8-4.8); LYMPHOCYTES % (AUTO) 6.6 % (20.0-44.0); MEAN CORPUSCULAR HEMOGLOBIN 30 PG (26.0-33.0); MEAN CORPUSCULAR HGB CONC 33 g/dl (31.0-36.0); MEAN CORPUSCULAR VOLUME 90 fL (82-100); MONOCYTES # (AUTO) 0.5 /CMM (0.1-1.30); MONOCYTES % (AUTO) 2.5 % (2.0-12.0); NEUTROPHILS # (AUTO) 18.4 /CMM (1.8-8.9); NEUTROPHILS % (AUTO) 90.2 % (43.0-81.0); PLATELET COUNT (AUTO) 208 /CMM (150-450); RDW COEFFICIENT OF VARIATION 15.7 (11.5-15.0); RED BLOOD CELL COUNT(AUTO) 3.24 MIL/uL (4.0-5.2); WHITE BLOOD COUNT (AUTO) 20.4 K/uL (4.3-11.0)
[2017-08-07 08:00] VITALS: BP 80/44
[2017-08-07] MEDS: SEVELAMER CARBONATE 0.8 GM POWD.PACK PO SCH ×2 (08:00→08:24)
[2017-08-07 08:03] LABS: CALCIUM, SERUM 7.7 mg/dL (8.5-10.1); MAGNESIUM 1.4 mg/dL (1.8-2.4); POTASSIUM 3.2 mmol/L (3.5-5.1)
--- NOTE | 2017-08-07 08:11 | NUR ---
MS RN OPENING NOTES PT RECEIVED A&0X1, RESTING IN BED. PT TOLERATING ROOM AIR WITH S/S OF RESP DISTRESS. PT UNABLE TO INDICATE PAIN BUT IS WITHOUT S/S OF DISTRESS OR DISCOMFORT. PT WITH GTUBE IN PLACE AND OPERATIONAL WITH 40ML/HR NOVASOURCE. PT WITH IVC AT RIGHT SHOULDER/UA G#22 INTACT AND OPERATIONAL WITH 75ML/HR NS. PT WITH KHALIL INTACT AND OPERATIONAL DRAINING YELLOW URINE. WILL CONTINUE TO MONITOR.
[2017-08-07 08:19] LABS: BAND % (MANUAL) 5 % (0.0-5.0); LYMPHOCYTES % (MANUAL) 7 % (16-48); MONOCYTES % (MANUAL) 5 % (0-11.0); NEUTROPHILS % (MANUAL) 83 (42-76)
[2017-08-07] MEDS: ZINC SULFATE 220 MG CAPSULE PO SCH (08:24)
[2017-08-07] MEDS: CLOPIDOGREL BISULFATE 75 MG TABLET PO SCH (08:24)
[2017-08-07] MEDS: MULTIVIT, IRON, MIN NO. 8, FA 1 TAB PO SCH (08:25)
[2017-08-07] MEDS: ASCORBIC ACID 500 MG TABLET PO SCH (08:25)
[2017-08-07] MEDS: MEGESTROL ACETATE SUSP 400 MG/10 ML UDC PO SCH ×2 (08:25→17:49)
[2017-08-07] MEDS: DOCUSATE SODIUM 100 MG CAPSULE PO SCH ×2 (08:25→17:50)
[2017-08-07] MEDS: PROSOURCE / PROSTAT (PYXIS) 30 ML UDC PO SCH (08:25)
[2017-08-07] MEDS: FAMOTIDINE (20 MG) 20 MG TABLET PO SCH (08:25)
[2017-08-07] MEDS: FOLIC ACID 1 MG TABLET PO SCH (08:25)
[2017-08-07 08:30] LABS: PHOSPHORUS 0.5 mg/dL (2.5-4.9)
[2017-08-07] MEDS: MUPIROCIN OINT 2% 22 GM TUBE SCH ×2 (08:42→20:08)
[2017-08-07] MEDS: TIMOLOL 0.5% SOLN OPHTH 5 ML BOTTLE EACHEYE SCH ×2 (08:45→17:54)
[2017-08-07] MEDS: HYDROGEL DRESSING 90 GM TUBE TP SCH (08:46)
[2017-08-07] MEDS: RENAL NOVASOURCE (8OZ) 1 EA BOX PO SCH ×2 (09:00→17:00)
[2017-08-07] MEDS: BRIMONIDINE TARTRATE OPHT SOLN 5 ML BOTTLE EACHEYE SCH ×2 (09:00→17:54)
[2017-08-07] MEDS: AMLODIPINE BESYLATE 10 MG TABLET PO SCH (09:00)
[2017-08-07] MEDS ORDERED: SODIUM PHOSPHATE IV ONE (10:00)
[2017-08-07] MEDS ORDERED: POTASSIUM CHLORIDE 20 MEQ TAB.PRT.SR PO SCH (10:00)
[2017-08-07] MEDS ORDERED: D5W IV ONE (10:00)
[2017-08-07] MEDS: MIDODRINE HCL (5MG) 5 MG TABLET GT SCH ×2 (11:30→17:00)
[2017-08-07] MEDS: Magnesium 1GM/D5W 100ML PREMIX 100 ML IV SCH ×2 (14:37→18:10)
[2017-08-07] MEDS: IV NS 0.9% 1,000 ML IV PRN (15:43)
[2017-08-07 16:00] VITALS: BP 91/45
--- NOTE | 2017-08-07 17:00 | NUR ---
RN NOTES. PT WITH 1500ML POSITIVE POST HD.
[2017-08-07] MEDS: ACETAMINOPHEN 325 MG TABLET PO PRN (17:50)
[2017-08-07] MEDS ORDERED: Magnesium 1GM/D5W 100ML PREMIX 100 ML IV SCH (18:00)
--- NOTE | 2017-08-07 19:35 | NUR ---
MS RN OPENING NOTES RECEIVED PT IN BED RESTING COMFORTABLY, AWAKE, RESPONSIVE, NO RESPIRATORY DISTRESS NOTED.IV SITE INTACT, PATENT. GT IN PLACE 1ML RESIDUAL NOTED,HOB ELEVATED, TOLERATES GTF WELL. F/C IN PLACE,DRAINING YELLOW COLOR URINE.KEPT CLEAN AND COMFORTABLE.ATTENDED ALL NEEDS. WILL CONTINUE TO MONITOR ACCORDINGLY.
[2017-08-07] MEDS: RENAL NOVASOURCE 1,000 ML BOTTLE GT SCH (20:06)
--- NOTE | 2017-08-07 20:14 | NUR ---
MS RN CLOSING NOTES PT REMAINS A&0X1, RESTING IN BED. PT TOLERATING ROOM AIR WITH S/S OF RESP DISTRESS. PT UNABLE TO INDICATE PAIN BUT HAS STARTED MOANING AT 1900, ENDORSED TO NIGHT NURSE TO MANAGE PAIN. PT GTUBE IN PLACE AND OPERATIONAL WITH 40ML/HR NOVASOURCE. PT WITH IVC AT RIGHT SHOULDER/UA G#22 INTACT AND OPERATIONAL. PT WITH KHALIL INTACT AND OPERATIONAL. BED IN LOWEST LOCKED POSITION WITH HANDRAILSX4 AND CALL GARCIA WITHIN REACH. ALL DAY NURSE DUTIES ATTENDED TO, PT WITHOUT CONCERN OR COMPLIANT AT THIS TIME, ENDORSED TO NIGHT NURSE.
[2017-08-07 20:46] VITALS: BP 68/47
--- NOTE | 2017-08-07 21:00 | NUR ---
MS RN NOTES PT NOTED WITH BP 80/48,P 80,PT AWAKE,RESPONSIVE, RESPIRATION EVEN, UNLABORED ADMINISTERED ALBUMIN 25%, 25G ORDERED.WILL CONTINUE TO MONITOR ACCORDINGLY.
[2017-08-07] MEDS: LATANOPROST EYE DROP 0.005% 2.5 ML BOTTLE EACHEYE SCH (21:18)
--- NOTE | 2017-08-07 21:30 | NUR ---
MS RN NOTES BP 92/66 P 66, AWAKE,RESPONSIVE,NO RESP DISTRESS NOTED.WILL CONTINUE TO MONITOR ACCORDINGLY.
[2017-08-07] MEDS: ALBUMIN 25% 25 GM in PREMIX 1 EA IV PRN (21:55)
[2017-08-07 22:00] VITALS: BP 92/60
--- NOTE | 2017-08-07 22:00 | NUR ---
RN MS NOTES BP 100/60 P 80, AWAKE,RESPONSIVE, NO SOB NOTED, NO S/SX OF PAIN OR DISCOMFORT NOTED. ATTENDED ALL NEEDS.WILL CONTINUE TO MONITOR ACCORDINGLY
[2017-08-07] MEDS: SENNOSIDES 8.6 MG TABLET PO SCH (22:07)
[2017-08-07] MEDS: ATORVASTATIN 10 MG TABLET PO SCH (22:07)
[2017-08-07] MEDS: MIRTAZAPINE 15 MG TABLET PO SCH (22:07)
[2017-08-07] MEDS: INSULIN DETEMIR 100 UNIT/ML CARTRIDGE SQ SCH (22:25)
[2017-08-08] VITALS (8 sets, daily range): BP systolic 51–119; BP diastolic 35–91
[2017-08-08] MEDS: PIPERACILLIN /TAZOBACTAM 2.25 G in IV D5W 50 ML IV SCH (04:22)
[2017-08-08] MEDS: prednisoLONE ACET 1% OPHT DROP 5 ML BOTTLE LEFTEYE SCH ×3 (05:21→22:17)
[2017-08-08] MEDS: BLOOD SUGAR DIAGNOSTIC 1 EACH STRIP IN SCH ×4 (05:56→22:18)
[2017-08-08] MEDS: INSULIN REGULAR, HUMAN 100 UNIT/ML 3 ML VIAL SQ PRN ×3 (05:58→18:12)
--- NOTE | 2017-08-08 06:15 | NUR ---
ms rn closing notes Pt in bed asleep. respirations even, unlabored, no sob,no apparent distress noted. iv site MARIPOSA intact,patent. no s/sx of pain or discomfort noted at this time. gt in place, tolerates gtf well,HOB elevated.f/c in place draining yellow color urine. call light within reach.attended all needs.Will continue to monitor accordingly.
--- NOTE | 2017-08-08 07:30 | NUR ---
MS RN OPENING NOTES PT RECEIVED A&0X1. PT TOLERATING ROOM AIR WITHOUT S/S OF RESP DISTRESS. PT INDICATING PAIN, WILL ADMIN PRN. PT WITH KHALIL INTACT AND OPERATIONAL DRAINING YELLOW URINE. PT WITH BOWEL MOVEMENT. G TUBE INTACT AND A SMALL AMOUNT OF DRAINAGE AROUND INC SITE, PT HOB ELEVATED AND TOLERATING GTF WELL. PT WITH UVS AT R UA/SHOULDER INTACT AND OPERATIONAL. BED IN LOWEST LOCKED POSITION WITH HANDRAILSX3 AND CALL GARCIA WITHIN REACH. WILL CONTINUE TO MONITOR.
[2017-08-08 08:12] LABS: BASOPHILS % (AUTO) 0.1 % (0.0-2.0); EOSINOPHILS % (AUTO) 0.1 % (0.0-6.0); HEMATOCRIT 24 % (33-45); HEMOGLOBIN 7.7 g/dL (11.5-14.8); LYMPHOCYTES # (AUTO) 1.7 /CMM (0.8-4.8); LYMPHOCYTES % (AUTO) 6.4 % (20.0-44.0); MEAN CORPUSCULAR HEMOGLOBIN 29 PG (26.0-33.0); MEAN CORPUSCULAR HGB CONC 33 g/dl (31.0-36.0); MEAN CORPUSCULAR VOLUME 89 fL (82-100); MONOCYTES # (AUTO) 1.8 /CMM (0.1-1.30); MONOCYTES % (AUTO) 6.8 % (2.0-12.0); NEUTROPHILS # (AUTO) 22.9 /CMM (1.8-8.9); NEUTROPHILS % (AUTO) 86.6 % (43.0-81.0); PLATELET COUNT (AUTO) 154 /CMM (150-450); RDW COEFFICIENT OF VARIATION 16.2 (11.5-15.0); RED BLOOD CELL COUNT(AUTO) 2.64 MIL/uL (4.0-5.2); WHITE BLOOD COUNT (AUTO) 26.5 K/uL (4.3-11.0)
[2017-08-08] MEDS: MIDODRINE HCL (5MG) 5 MG TABLET GT SCH ×2 (08:33→18:10)
[2017-08-08] MEDS: CLOPIDOGREL BISULFATE 75 MG TABLET PO SCH (08:33)
[2017-08-08] MEDS: DOCUSATE SODIUM 100 MG CAPSULE PO SCH ×2 (08:33→17:00)
[2017-08-08] MEDS: FAMOTIDINE (20 MG) 20 MG TABLET PO SCH (08:33)
[2017-08-08] MEDS: MEGESTROL ACETATE SUSP 400 MG/10 ML UDC PO SCH ×2 (08:33→18:09)
[2017-08-08] MEDS: MULTIVIT, IRON, MIN NO. 8, FA 1 TAB PO SCH (08:34)
[2017-08-08] MEDS: ASCORBIC ACID 500 MG TABLET PO SCH (08:35)
[2017-08-08] MEDS: FOLIC ACID 1 MG TABLET PO SCH (08:35)
[2017-08-08] MEDS: ZINC SULFATE 220 MG CAPSULE PO SCH (08:35)
[2017-08-08] MEDS: ERGOCALCIFEROL (VITAMIN D 2) 50,000 UNIT CAPSULE PO SCH (08:35)
[2017-08-08 08:36] LABS: CALCIUM, SERUM 7.6 mg/dL (8.5-10.1); CREATININE 2.3 mg/dL (0.6-1.3); MAGNESIUM 1.7 mg/dL (1.8-2.4); PHOSPHORUS 1.6 mg/dL (2.5-4.9)
[2017-08-08] MEDS: PROSOURCE / PROSTAT (PYXIS) 30 ML UDC PO SCH (08:36)
[2017-08-08] MEDS: RENAL NOVASOURCE (8OZ) 1 EA BOX PO SCH ×2 (08:37→17:00)
[2017-08-08] MEDS: ACETAMINOPHEN 325 MG TABLET PO PRN (08:43)
[2017-08-08 08:44] LABS: POTASSIUM 2.4 mmol/L (3.5-5.1)
[2017-08-08] MEDS: TIMOLOL 0.5% SOLN OPHTH 5 ML BOTTLE EACHEYE SCH ×2 (08:47→18:11)
[2017-08-08] MEDS: MUPIROCIN OINT 2% 22 GM TUBE SCH ×2 (08:47→22:18)
[2017-08-08] MEDS: BRIMONIDINE TARTRATE OPHT SOLN 5 ML BOTTLE EACHEYE SCH ×2 (08:47→18:11)
[2017-08-08 09:00] LABS: BAND % (MANUAL) 7 % (0.0-5.0); LYMPHOCYTES % (MANUAL) 8 % (16-48); MONOCYTES % (MANUAL) 6 % (0-11.0); NEUTROPHILS % (MANUAL) 79 (42-76)
--- NOTE | 2017-08-08 09:00 | NUR ---
RN NOTES. LABS CALLED CRITICAL LOW [place], MD OGDEN INFORMED AND ORDERS PLACED BY .
--- NOTE | 2017-08-08 09:00 | NUR ---
MS RN NOTES. CRITICAL LAB VALUE REPORTED TO MD. ORDERS PLACED.
[2017-08-08] MEDS: HYDROCODONE/APAP 5/325MG 1 EACH TABLET PO PRN ×2 (09:28→16:02)
[2017-08-08] MEDS: HYDROGEL DRESSING 90 GM TUBE TP SCH (09:29)
[2017-08-08] MEDS ORDERED: DOSE PER PHARMACY (MD SPECIFY MEDICATION) 1 EA XX PRN (09:30)
[2017-08-08] MEDS ORDERED: Potassium Phosphate meq 11 MEQ in IV D5W 100 ML IV SCH (09:30)
[2017-08-08] MEDS: Magnesium 1GM/D5W 100ML PREMIX 100 ML IV SCH ×2 (09:33→11:01)
[2017-08-08] MEDS: NEUTRA PHOS 1 POWD.PACKET PO SCH ×2 (09:44→18:10)
[2017-08-08] MEDS: MEROPENEM 500 MG in IV NS 0.9% 50 ML IV SCH (11:00)
--- NOTE | 2017-08-08 11:00 | NUR ---
MS RN NOTES. MIDLINE ORDERED PER MD.
--- NOTE | 2017-08-08 12:20 | NUR ---
RN NOTES. PT IV INFILTRATED AND REMOVED, NAD AT SITE. NEW IV PLACEMENT NOT POSSIBLE. MD CONTACTED FOR ORDERS.
[2017-08-08] MEDS ORDERED: FEE PK DOSING 1 MIN EA MC ONE (12:41)
[2017-08-08] MEDS ORDERED: VANCOMYCIN 1 GM in IV D5W 250 ML IV ONE (13:00)
--- NOTE | 2017-08-08 13:00 | NUR ---
MS RN NOTES. PT REPORTING NAUSEA AND ABDO PAIN. GTUBE RESIDUAL CHECKED AND MD CONTACT NO IV ACCESS, ORDER PLACED. IM PRN ADMINISTERED WITH GOOD EFFECT AND G TUBE FEED SLOWED.
[2017-08-08] MEDS ORDERED: ONDANSETRON HCL/PF 4 MG/2 ML VIAL IM PRN (13:30)
[2017-08-08] MEDS: ATROPINE SULFATE OPHTH SOLN 15 ML BOTTLE EACHEYE SCH (17:00)
--- NOTE | 2017-08-08 19:00 | NUR ---
MS RN NOTES. MIDLINE G#18 PLACED IN RIGHT UPPER ARM. NO IV THERAPIES ADMINISTERED SINCE 12.20, MD AWARE.
--- NOTE | 2017-08-08 19:35 | NUR ---
MS RN CLOSING NOTES. PT REMAINS A&0X1. PT TOLERATING ROOM AIR WITHOUT S/S OF RESP DISTRESS AND SAO2 WNL. PT UNABLE TO REPORT PAIN BUT HAS HAD FREQUENT EPISODES OF MOANING THROUGHOUT SHIFT, PRNS ADMIN. PT WITH G TUBE INTACT AND OPERATIONAL WITH GTF DECREASED TO 10ML/HR R/T REPORTED NAUSEA AND ABDO PAIN, MD AWARE. KHALIL INTACT AND OPERATIONAL DRAINING YELLOW URINE. PT WOUND CARE ATTENDED TO AND REVIEWED BY MD. PT NOW WITH BOOT SUPPORT PER MD ON RIGHT ANKLE. PT ENDORSED TO NIGHT NURSE AT BEDSIDE FOR YVES.
--- NOTE | 2017-08-08 19:45 | NUR ---
MS RN OPENING NOTES RECEIVED PT IN BED, AWAKE,NO ACUTE DISTRESS NOTED AT THIS TIME,FAMILY AT BEDSIDE.MIDLINE NURSE AT THE BEDSIDE,RESPIRATIONS EVEN, UNLABORED, NO SOB NOTE. ON O2 VIA N/C AT 2L/MIN . ISOLATION PRECAUTIONS OBSERVED. WILL CONTINUE TO MONITOR.
--- NOTE | 2017-08-08 20:30 | NUR ---
MS NOTES FAMILY NOTED PT LESS RESPONSIVE.BP 122/76, HR 68, RR 18, 98.2, O2 SAT 92%. BLOOD GLUCOSE 125, PT NON RESPONDING TO VERBAL COMMANDS, OR STERNAL RUB. RAPID RESPONSE CALLED. VITALS RECHECKED 119/91, O2 SAT 70%, PLACED ON NONREBREATHER MASK AT 15L/MIN.RT AT BEDSIDE, ICU AND CHARGE NURSE AT THE BEDSIDE.CALLED PT PRIMARY MD SPOKE TO DR LEWIS WITH NEW ORDERS FOR STAT CT HEAD, CXR, ABG AND OK TO TRANSFER TO [facility]. VITAL SIGNS RECHECKED 118/93 HR 87. O2 SAT 100%. WILL WAIT FOR CXR AND CT SCAN TO BE TAKEN.
[2017-08-08 20:41] LABS: ABG BASE EXCESS -2.3 mmol/L; ABG OXYGEN SATURATION 96.4 % (92.0-98.5); ABG PCO2 45.1 mmHg (35.0-45.0); ABG PH 7.335 (7.350-7.450); COHb 0.3 % (0.5-1.5); MetHb 0.7 % (0.0-1.5); O2Hb 95.4 % (94.0-97.0); SITE, ABG Left Radial; VENT MODE, BG N/C
--- NOTE | 2017-08-08 20:54 | NUR ---
PT NOT STABLE FOR CT SCAN, RN WILL CALL.
--- NOTE | 2017-08-08 21:00 | NUR ---
MS RN NOTES PER CHARGE NURSE WAITING FOR BED IN [facility]IT, PT CONTINUES ON NON REBREATHER MASK AT 15L/MIN, O2 SAT 100%.ABG TAKEN, PENDING RESULTS, F/U WITH RADIOLOGY FOR STAT CXR AND CT SCAN.WILL CONTINUE TO MONITOR.
[2017-08-08] MEDS: MIRTAZAPINE 15 MG TABLET PO SCH (22:00)
[2017-08-08] MEDS: INSULIN DETEMIR 100 UNIT/ML CARTRIDGE SQ SCH (22:00)
[2017-08-08] MEDS: SENNOSIDES 8.6 MG TABLET PO SCH (22:00)
--- NOTE | 2017-08-08 22:00 | NUR ---
MS RN NOTES PT TAKEN DOWN FOR CT SCAN, IN STABLE CONDITION, WITH RN AT BEDSIDE, PT RETURNED BACK TO ROOM WITHOUT ACUTE DISTRESS NOTED.WAITING FOR CT RESULTS TO FINALIZE AND WAITING FOR BED FOR [facility]. ABG RESULTS WITHIN NORMAL LIMITS. WILL CONTINUE TO MONITOR.
--- NOTE | 2017-08-08 22:10 | NUR ---
MS RN NOTES JEFF HELD PT HAD LOOSE BM, REMERON HELD DUE TO DECREASED RESPONSIVENESS. WILL CONTINUE TO MONITOR.
[2017-08-08] MEDS: LATANOPROST EYE DROP 0.005% 2.5 ML BOTTLE EACHEYE SCH (22:18)
[2017-08-08] MEDS: ATORVASTATIN 10 MG TABLET PO SCH (22:34)
[2017-08-08] MEDS: ALBUMIN 25% 25 GM in PREMIX 1 EA IV PRN (22:43)
--- NOTE | 2017-08-08 22:45 | NUR ---
MS RN NOTES PT NOTED LESS RESPONSIVE. VITAL SIGNS BP 55/30 HR 65, O2 SAT 92%, RT AT BEDSIDE,INFORMED CHARGE NURSE THAT VITALS UNSTABLE.[facility] CALLED AND PT TO BE TRANSFERRED TO [facility].REPORT TO BE GIVEN TO THE BEDSIDE. PT TRANSFERRED TO [facility] USING ACLS PROTOCOL
--- NOTE | 2017-08-08 23:00 | NUR ---
received pt from [facility], altered, does not follows commands, responds to pain stimuli, SR, on non rebreather, sat 93%, BP 65/34, GT clamped, f/c intact, HD pt.
[2017-08-08] MEDS ORDERED: NOREPINEPHRINE 4 MG/4 ML AMPUL IV ONE ×2 (23:23→23:34)
[2017-08-08] MEDS ORDERED: NOREPINEPHRINE 16 MG in IV D5W 500 ML IV PRN (23:30)
--- NOTE | 2017-08-08 23:30 | NUR ---
ABG done, Dr. Davison called, ER doctor at the bed side Patient intubated.
[2017-08-08] MEDS: Potassium Phosphate meq 11 MEQ in IV D5W 100 ML IV SCH (23:53)
[2017-08-09] VITALS (111 sets, daily range): BP systolic 70–146; BP diastolic 22–96
--- NOTE | 2017-08-09 00:05 | NUR ---
@[address] SOLIS. 7.5 ETT SECURED AT 21CM AT THE LIP. GOOD COLOR CHANGE ON CO2 DETECTOR. EQUAL CHEST RISE/BILAT BREATH SOUND. O2 SAT 100%. VENT SETTINGS AC 16, 500, 100%, +5. WILL CONTINUE TO MONITOR. Addendum: 08/09/17 at 0009 by JO ANN THAO RT Amended: Links added.
[2017-08-09] MEDS ORDERED: PROPOFOL 100 ML ONE (00:23)
[2017-08-09] MEDS: PROPOFOL 100 ML IV PRN ×2 (00:38→07:00)
[2017-08-09] MEDS: MEROPENEM 500 MG in IV NS 0.9% 50 ML IV SCH ×3 (00:45→23:57)
[2017-08-09] MEDS: IV NS 0.9% 250 ML IV SCH (00:49)
--- NOTE | 2017-08-09 01:00 | NUR ---
pt sedated on Diprivan at 5mcg, receiving levo at 7mcg TLC midline inserted BS 45, D50 given, recheck 115.
--- NOTE | 2017-08-09 01:08 | NUR ---
POST INTUBATION ABG DONE. NOTIFIED RN WITH THE RESULT. FIO2 TITRATED TO 60%.
[2017-08-09] MEDS: Potassium Phosphate meq 11 MEQ in IV D5W 100 ML IV SCH (02:33)
[2017-08-09] MEDS: RENAL NOVASOURCE 1,000 ML BOTTLE GT SCH ×2 (02:51→19:49)
--- NOTE | 2017-08-09 04:25 | NUR ---
pt is resting in the bed, sedated on diprivan at 30mcg, SR, receiving levo at 7mcg, 1L bolus given per Dr. Davison, restraints on, v/s stable, no pain, tolerates feeding, pt turned and repositioned q2hrs.
[2017-08-09] MEDS: ATROPINE SULFATE OPHTH SOLN 15 ML BOTTLE EACHEYE SCH ×3 (04:30→17:00)
[2017-08-09] MEDS: prednisoLONE ACET 1% OPHT DROP 5 ML BOTTLE LEFTEYE SCH ×3 (04:31→20:33)
[2017-08-09] MEDS: IV NS 0.9% 1,000 ML IV PRN (04:44)
[2017-08-09 04:46] LABS: BASOPHILS % (AUTO) 0.1 % (0.0-2.0); HEMATOCRIT 25 % (33-45); HEMOGLOBIN 8.4 g/dL (11.5-14.8); LYMPHOCYTES # (AUTO) 1.8 /CMM (0.8-4.8); LYMPHOCYTES % (AUTO) 5.4 % (20.0-44.0); MEAN CORPUSCULAR HEMOGLOBIN 30 PG (26.0-33.0); MEAN CORPUSCULAR HGB CONC 33 g/dl (31.0-36.0); MEAN CORPUSCULAR VOLUME 89 fL (82-100); MONOCYTES # (AUTO) 1.9 /CMM (0.1-1.30); MONOCYTES % (AUTO) 5.7 % (2.0-12.0); NEUTROPHILS # (AUTO) 29.5 /CMM (1.8-8.9); NEUTROPHILS % (AUTO) 88.8 % (43.0-81.0); PLATELET COUNT (AUTO) 213 /CMM (150-450); RDW COEFFICIENT OF VARIATION 16.2 (11.5-15.0); RED BLOOD CELL COUNT(AUTO) 2.83 MIL/uL (4.0-5.2)
[2017-08-09 05:00] LABS: CALCIUM, SERUM 8.2 mg/dL (8.5-10.1); CREATININE 2.4 mg/dL (0.6-1.3); MAGNESIUM 1.8 mg/dL (1.8-2.4); PHOSPHORUS 2.4 mg/dL (2.5-4.9)
[2017-08-09 05:04] LABS: WHITE BLOOD COUNT (AUTO) 33.3 K/uL (4.3-11.0)
[2017-08-09 05:23] LABS: BAND % (MANUAL) 15 % (0.0-5.0); LYMPHOCYTES % (MANUAL) 7 % (16-48); MONOCYTES % (MANUAL) 6 % (0-11.0); NEUTROPHILS % (MANUAL) 72 (42-76)
[2017-08-09] MEDS ORDERED: POTASSIUM CHLORIDE 20 MEQ POWDER PACKET ONE (06:34)
[2017-08-09] MEDS: POTASSIUM CHLORIDE 20 MEQ POWDER PACKET GT SCH ×2 (06:50→08:44)
--- NOTE | 2017-08-09 07:25 | NUR ---
INITIAL PLUMBER PIPE FITTING NOTE RCVD PT SEDATED, SR ON TELE. INTUBATED 7.5 21 AT LIP. TOLERATING ORDERED VENT SETTINGS WELL. PEG PLACEMENT VERIFIED BY AUSCULTATION/ASPIRATION. NO RESIDUAL OBTAINED. KHALIL TO GRAVITY DRAINING YELLOW, URINE. MARIPOSA MIDLINE C/D/I/PATENT. RIGHT UPPER ARM APPEARS BRUISED, BLOOD RETURN PRESENT ON MIDLINE. WILL CONTINUE TO MONITOR PT FOR SAFETY AND COMFORT. CALL LIGHT WITHIN REACH.
[2017-08-09] MEDS: BLOOD SUGAR DIAGNOSTIC 1 EACH STRIP IN SCH ×4 (08:31→22:10)
[2017-08-09] MEDS: MIDODRINE HCL (5MG) 5 MG TABLET GT SCH ×2 (08:41→16:44)
[2017-08-09] MEDS: NEUTRA PHOS 1 POWD.PACKET PO SCH ×2 (08:41→16:43)
[2017-08-09] MEDS: FOLIC ACID 1 MG TABLET PO SCH (08:41)
[2017-08-09] MEDS: ZINC SULFATE 220 MG CAPSULE PO SCH (08:41)
[2017-08-09] MEDS: DOCUSATE SODIUM 100 MG CAPSULE PO SCH ×2 (08:41→16:43)
[2017-08-09] MEDS: ASCORBIC ACID 500 MG TABLET PO SCH (08:41)
[2017-08-09] MEDS: FAMOTIDINE (20 MG) 20 MG TABLET PO SCH (08:42)
[2017-08-09] MEDS: CLOPIDOGREL BISULFATE 75 MG TABLET PO SCH (08:42)
[2017-08-09] MEDS: MULTIVIT, IRON, MIN NO. 8, FA 1 TAB PO SCH (08:42)
[2017-08-09] MEDS: MEGESTROL ACETATE SUSP 400 MG/10 ML UDC PO SCH ×2 (08:42→16:43)
[2017-08-09] MEDS: BRIMONIDINE TARTRATE OPHT SOLN 5 ML BOTTLE EACHEYE SCH ×2 (08:43→16:45)
[2017-08-09] MEDS: TIMOLOL 0.5% SOLN OPHTH 5 ML BOTTLE EACHEYE SCH ×2 (08:43→16:45)
[2017-08-09] MEDS: MUPIROCIN OINT 2% 22 GM TUBE SCH ×2 (08:48→20:33)
[2017-08-09] MEDS: PROSOURCE / PROSTAT (PYXIS) 30 ML UDC PO SCH (08:49)
[2017-08-09] MEDS ORDERED: NOREPINEPHRINE 16 MG in IV D5W 500 ML IV PRN (09:00)
[2017-08-09] MEDS: POTASSIUM CL. PREMIX PERIPHER. 50 ML IV SCH ×4 (09:49→13:08)
[2017-08-09] MEDS: LORAZEPAM 1 MG TABLET PO SCH (10:30)
--- NOTE | 2017-08-09 11:34 | NUR ---
SAP BASIS ADMINISTRATOR NOTE PT UNDERGOING DIALYSIS TX, COLIN RN INFORMED THAT PT ON LEVO WILL CONTINUE TO MONITOR.
[2017-08-09] MEDS ORDERED: ETOMIDATE 2 MG/ML VIAL IV ONE (11:48)
[2017-08-09] MEDS ORDERED: SUCCINYLCHOLINE CHLORIDE 20 MG/ML VIAL IV ONE (11:48)
[2017-08-09] MEDS: INSULIN REGULAR, HUMAN 100 UNIT/ML 3 ML VIAL SQ PRN (12:28)
[2017-08-09] MEDS: ALBUMIN 25% 25 GM in PREMIX 1 EA IV PRN (12:29)
[2017-08-09] MEDS: PROPOFOL 10MG/ML 50ML 50 ML IV PRN (12:33)
[2017-08-09] MEDS: HYDROGEL DRESSING 90 GM TUBE TP SCH (13:07)
[2017-08-09] MEDS: NOREPINEPHRINE 16 MG in IV D5W 500 ML IV PRN (13:30)
--- NOTE | 2017-08-09 13:37 | NUR ---
SALES SOLUTIONS REPRESENTATIVE NOTE PT'S DAUGHTER AT BEDSIDE UPDATED ON PT'S CONDITION. DR. OGDEN ANSWERED PT'S DAUGHTER QUESTIONS REGARDING PT. TUBE FEEDING PAUSED. RESIDUAL OF 160 ML OBTAINED. WILL CONTINUE TO MONITOR.
[2017-08-09 15:25] LABS: ABG PH 7.429 (7.350-7.450); ABG PO2 116.4 mmHg (75.0-100.0); AaDO2 128.6 mmHg; PEEP,BG 5 cm H2O; SITE, ABG Left Radial; VT, ABG 500 mL
[2017-08-09] MEDS: LACTOBACILLUS RHAMNOSUS GG 1 EACH CAP.SPRINK PO SCH (16:43)
--- NOTE | 2017-08-09 16:55 | NUR ---
SALES ENABLEMENT MANAGER NOTE SEDATION VACATION IMPLEMENTED, PT OFF SEDATION AT THIS TIME. UNABLE TO FOLLOW COMMANDS IN [place]. PT'S DAUGHTER AT BEDSIDE. UNABLE TO ACKNOWLEDGE HER. WILL CONTINUE TO MONITOR.
--- NOTE | 2017-08-09 17:51 | NUR ---
RT END OF THE SHIFT REPORT PT. 62 Y OLD FEMALE REMAIN ORALLY INTUBATED ETT# 7.5 @21 VENT WITH NOTED AC SETTINGS, ALARMS ARE SET AND FUNCTIONAL. B/S RALES/ RHONCHI. BILATERALLY AND EQUAL CHEST RISE NOTED SUX'D FOR MODERATE AMT OF YELLOWISH SECRETIONS. CHANGES PER MD ORDER TO 30% FIO2 VENT PLUGGED INTO RED OUTLET AND NO DISTRESS NOTED T/O SHIFT HME CHANGED AND AMBU BAG REMAIN AT THE BEDSIDE. REPORT WILL PASS TO PM SHIFT. Addendum: 08/09/17 at 1752 by NAKITA CRAIG RT Amended: Links added.
--- NOTE | 2017-08-09 18:12 | NUR ---
FEATHER TRIMMER NOTE AILYN SAMAYOA REQUESTED TO SEND STOOL SAMPLE FOR C.DIFF. SHE WAS INFORMED THAT THERE'S A PROTOCOL IN PLACE PRIOR TO SENDING SAMPLE. SHE INSTRUCTED RN TO SEND SAMPLE TO LAB BECAUSE PT IS SEPTIC. SAMPLE SENT ORDERED.
--- NOTE | 2017-08-09 18:40 | NUR ---
EDI PROGRAMMER ANALYST NOTE PT REMAINS CRITICAL, ST ON TELE. TOLERATING ORDERED VENT SETTINGS. PEG CLAMPED AT THIS TIME. RESIDUAL OF 60 ML ON LAST CHECK. MARIPOSA MIDLINE BLOOD RETURN OBSERVED. PRESSORS INFUSING. PT'S CARE ENDORSED TO OUTDOOR ADVENTURE GUIDES RN FOR CONTINUITY OF CARE. Addendum: 08/09/17 at 2027 by RUBÉN GARCIA RN ADDENDUM PT HAS POOR PERFUSION SATURATION LOW IN MONITOR, O2 SAT PROBE CHANGED TO MULTIPLE LOCATIONS WITH POOR READING. ABG DONE THIS AFTERNOON APPEARS STABLE. DR. NGUYEN REVIEWED.
--- NOTE | 2017-08-09 19:00 | NUR ---
RN INITIAL NOTES RECEIVED PT OBTUNDED ON BED, OPENS EYES ONLY, NO SEDATION. INTUBATED AND ON VENT WITH SETTINGS AC 16, TV 500, FIO2 40%, PEEP 5, ETT 7.5/21@LIP, SATURATING WELL, NO S/S OF RESP DISTRESS. CURRENTLY SINUS TACH ON THE MONITOR, HR 100-110'S. ON LEVO DRIP @ 10MCG/MIN. GTUBE IS CURRENTLY CLAMPED WITH 80MLS RESIDUALS, WILL INITIATE FIBERSOURCE FEEDING AT A LOW RATE OF 20MLS/HR. PT IS ANURIC, ON DIAPERS ONLY. LEFT CHESTWALL HD CATH INTACT. RIGHT UPPER ARM MIDLINE WITH NS @ 40MLS/HR, FLUSHED AND PATENT, NO S/S OF INFILTRATION/INFECTION, DRESSING CDI. BED LOW AND LOCKED, SIDERAILS UP, BILATERAL WRIST RESTRAINTS ON FOR SAFETY, BED ALARM ON. WILL MONITOR
[2017-08-09] MEDS: VANCOMYCIN 500 MG in IV D5W 100 ML IV PRN (19:45)
--- NOTE | 2017-08-09 20:00 | NUR ---
RT RECEIVED [facility] WITH NOTED SETTINGS. ETT 7.5 MARKED 21CM @ THE LIP. CREDIT ASSESSMENT ANALYST DONE AND ETT SECURE W/ ANCHOR FAST. BILATERAL B/S. VENTS ALARMS CHECKED AND AUDIBLE. VENT PLUGGED IN RED OUTLET. SX WITH MOD THK VALE SECRETIONS. AMBU BAG NOTED AT THE HOB. NO RESP DISTRESS NOTED AT THIS TIME WILL CONTINUE TO MONITOR T/O SHIFT.
[2017-08-09] MEDS: MICAFUNGIN SODIUM 100 MG in IV NS 0.9% 100 ML IV SCH (20:28)
[2017-08-09] MEDS: HEPARIN SODIUM, PORCINE 5000 UNITS/1 ML VIAL SQ SCH (20:30)
[2017-08-09] MEDS: METRONIDAZOLE 500MG/ NS 100ML 500 MG in PREMIX 1 EA IV SCH (21:02)
[2017-08-09] MEDS: MIRTAZAPINE 15 MG TABLET PO SCH (21:51)
[2017-08-09] MEDS: SENNOSIDES 8.6 MG TABLET PO SCH (21:51)
[2017-08-09] MEDS: ATORVASTATIN 10 MG TABLET PO SCH (21:51)
[2017-08-09] MEDS: INSULIN DETEMIR 100 UNIT/ML CARTRIDGE SQ SCH (22:00)
[2017-08-09] MEDS: LATANOPROST EYE DROP 0.005% 2.5 ML BOTTLE EACHEYE SCH (22:09)
--- NOTE | 2017-08-09 22:10 | NUR ---
RN NOTES DID NOT ADMINISTER SCHEDULED LEVEMIR 16 UNITS. PT HAS CURRENT BLOOD SUGAR OF 93. PREVIOUS BLOOD SUGARS WERE WITHIN NORMAL LIMITS WELL. GTF IS RUNNING AT 20MLS ONLY DUE TO RESIDUALS. WILL MONITOR
[2017-08-10] VITALS (103 sets, daily range): BP systolic 80–137; BP diastolic 32–75
[2017-08-10] MEDS: IV NS 0.9% 250 ML IV SCH ×3 (00:30→23:53)
[2017-08-10 04:52] LABS: BASOPHILS % (AUTO) 0.1 % (0.0-2.0); EOSINOPHILS % (AUTO) 0.2 % (0.0-6.0); HEMATOCRIT 22 % (33-45); HEMOGLOBIN 7.4 g/dL (11.5-14.8); LYMPHOCYTES # (AUTO) 1.6 /CMM (0.8-4.8); LYMPHOCYTES % (AUTO) 6.3 % (20.0-44.0); MEAN CORPUSCULAR HEMOGLOBIN 29 PG (26.0-33.0); MEAN CORPUSCULAR HGB CONC 33 g/dl (31.0-36.0); MEAN CORPUSCULAR VOLUME 88 fL (82-100); MONOCYTES # (AUTO) 1.1 /CMM (0.1-1.30); MONOCYTES % (AUTO) 4.2 % (2.0-12.0); NEUTROPHILS % (AUTO) 89.2 % (43.0-81.0); PLATELET COUNT (AUTO) 169 /CMM (150-450); RDW COEFFICIENT OF VARIATION 16.3 (11.5-15.0); RED BLOOD CELL COUNT(AUTO) 2.55 MIL/uL (4.0-5.2); WHITE BLOOD COUNT (AUTO) 25.8 K/uL (4.3-11.0)
[2017-08-10] MEDS: METRONIDAZOLE 500MG/ NS 100ML 500 MG in PREMIX 1 EA IV SCH ×3 (05:19→21:46)
[2017-08-10] MEDS: IV NS 0.9% 1,000 ML IV PRN (05:20)
[2017-08-10] MEDS: prednisoLONE ACET 1% OPHT DROP 5 ML BOTTLE LEFTEYE SCH ×3 (05:21→21:47)
[2017-08-10 05:25] LABS: ALANINE AMINOTRANSFERASE < 6 U/L (12-78); ALBUMIN 2.3 g/dL (3.4-5.0); ALKALINE PHOSPHATASE 180 U/L (46-116); ASPARTATE AMINOTRANSFERASE 10 U/L (15-37); BILIRUBIN,TOTAL 1.1 mg/dL (0.2-1.0); CALCIUM, SERUM 8.4 mg/dL (8.5-10.1); CARBON DIOXIDE 24 mmol/L (21-32); CHLORIDE 104 mmol/L (98-107); CREATININE 2.2 mg/dL (0.6-1.3); GLUCOSE 145 mg/dL (74-106); MAGNESIUM 1.8 mg/dL (1.8-2.4); PHOSPHORUS 1.5 mg/dL (2.5-4.9); POTASSIUM 3.3 mmol/L (3.5-5.1); SODIUM SERUM 141 mmol/L (136-145); TOTAL PROTEIN, SERUM 5.5 g/dL (6.4-8.2); UREA NITROGEN, BLOOD 24 mg/dL (7-18)
[2017-08-10 06:04] LABS: BAND % (MANUAL) 6 % (0.0-5.0); LYMPHOCYTES % (MANUAL) 8 % (16-48); METAMYELOCYTES % 1 % (0-0); MONOCYTES % (MANUAL) 3 % (0-11.0); NEUTROPHILS % (MANUAL) 82 (42-76)
[2017-08-10] MEDS: ATROPINE SULFATE OPHTH SOLN 15 ML BOTTLE EACHEYE SCH ×2 (06:15→16:08)
--- NOTE | 2017-08-10 06:30 | NUR ---
RN CLOSING NOTES PT REMAINS STABLE OF THE MOMENT. ALL DUE MEDS GIVEN, AM CARE PROVIDED. WILL ENDORSE YVES TO AM RN
--- NOTE | 2017-08-10 07:30 | NUR ---
MAGNETIC PROSPECTING SUPERVISOR RECEIVED PATIENT ON MECHANICAL VENTILATORY SUPPORT SATURATING WELL AFEBRILE TO PAIN STIMULI BUT PATIENT IS OBTUNDED FEEDING IS HELD DUE TO HIGH RESIDUAL PITTING EDEMA OVER HER EXTREMITIES RIGHT HEEL OFFLOADING NOTED, KNEE AMPUTATION NOTED AT HER LEFT LEG MONITORED CLOSELY
[2017-08-10] MEDS: BLOOD SUGAR DIAGNOSTIC 1 EACH STRIP IN SCH ×4 (08:11→23:06)
[2017-08-10] MEDS: MEGESTROL ACETATE SUSP 400 MG/10 ML UDC PO SCH ×2 (08:32→16:06)
[2017-08-10] MEDS: DOCUSATE SODIUM 100 MG CAPSULE PO SCH ×2 (08:32→16:07)
[2017-08-10] MEDS: ZINC SULFATE 220 MG CAPSULE PO SCH (08:32)
[2017-08-10] MEDS: POTASSIUM CHLORIDE 20 MEQ POWDER PACKET GT SCH (08:32)
[2017-08-10] MEDS: FAMOTIDINE (20 MG) 20 MG TABLET PO SCH (08:34)
[2017-08-10] MEDS: PROSOURCE / PROSTAT (PYXIS) 30 ML UDC PO SCH (08:34)
[2017-08-10] MEDS: ASCORBIC ACID 500 MG TABLET PO SCH (08:34)
[2017-08-10] MEDS: NEUTRA PHOS 1 POWD.PACKET PO SCH ×2 (08:34→16:06)
[2017-08-10] MEDS: MULTIVIT, IRON, MIN NO. 8, FA 1 TAB PO SCH (08:34)
[2017-08-10] MEDS: CLOPIDOGREL BISULFATE 75 MG TABLET PO SCH (08:34)
[2017-08-10] MEDS: HYDROGEL DRESSING 90 GM TUBE TP SCH (08:35)
[2017-08-10] MEDS: MIDODRINE HCL (5MG) 5 MG TABLET GT SCH ×2 (08:35→16:09)
[2017-08-10] MEDS: MUPIROCIN OINT 2% 22 GM TUBE SCH ×2 (08:36→21:49)
[2017-08-10] MEDS: TIMOLOL 0.5% SOLN OPHTH 5 ML BOTTLE EACHEYE SCH ×2 (08:36→16:08)
[2017-08-10] MEDS: BRIMONIDINE TARTRATE OPHT SOLN 5 ML BOTTLE EACHEYE SCH ×2 (08:36→16:07)
[2017-08-10] MEDS: HEPARIN SODIUM, PORCINE 5000 UNITS/1 ML VIAL SQ SCH ×2 (08:37→21:50)
[2017-08-10] MEDS: FOLIC ACID 1 MG TABLET PO SCH (08:49)
[2017-08-10] MEDS ORDERED: Sodium Phosphate 15 MMOL in IV D5W 250 ML IV ONE (09:30)
[2017-08-10] MEDS ORDERED: POTASSIUM CHLORIDE 20 MEQ POWDER PACKET GT ONE (09:30)
[2017-08-10 09:50] LABS: ABG BASE EXCESS -3.5 mmol/L; ABG OXYGEN SATURATION 97.2 % (92.0-98.5); ABG PCO2 26.7 mmHg (35.0-45.0); ABG PH 7.482 (7.350-7.450); ABG PO2 94.9 mmHg (75.0-100.0); AaDO2 87.6 mmHg; COHb 1.8 % (0.5-1.5); MetHb 0.9 % (0.0-1.5); O2Hb 94.6 % (94.0-97.0); PEEP,BG 5 cm H2O; SITE, ABG Right Radial; VT, ABG 500 mL
[2017-08-10] MEDS: METOCLOPRAMIDE HCL 10 MG/2 ML VIAL IV SCH ×2 (10:25→17:04)
[2017-08-10] MEDS: LACTOBACILLUS RHAMNOSUS GG 1 EACH CAP.SPRINK PO SCH ×2 (10:26→16:06)
[2017-08-10] MEDS: NOREPINEPHRINE 16 MG in IV D5W 500 ML IV PRN (10:27)
[2017-08-10] MEDS: MEROPENEM 500 MG in IV NS 0.9% 50 ML IV SCH ×2 (10:28→22:15)
[2017-08-10] MEDS: INSULIN REGULAR, HUMAN 100 UNIT/ML 3 ML VIAL SQ PRN ×2 (12:21→18:24)
[2017-08-10] MEDS: HYDROCODONE/APAP 5/325MG 1 EACH TABLET PO PRN (14:48)
[2017-08-10] MEDS ORDERED: EPOETIN ALFA (10,000 UNIT) 10,000 UNIT/ML VIAL SQ ONE (15:00)
[2017-08-10] MEDS: ACETAMINOPHEN 325 MG TABLET PO PRN (16:07)
--- NOTE | 2017-08-10 18:00 | NUR ---
RT NOTE: PATIENT RECEIVED ORALLY INTUBATED WITH 7.5 ETT SECURED AT 21 CM MID LIP LINE ON A GE860 VENT. MOVED ETT FROM RIGHT TO LEFT SIDE OF THE MOUTH VIA ANCHOR FAST. ALARMS VERIFIED AND AUDIBLE. SUCTIONED AND LAVAGED SMALL-MOD AMOUNT OF THIN VALE SECRETIONS. VENT PLUGGED INTO RED OUTLET. AMBU BAG AT [facility].
[2017-08-10] MEDS: RENAL NOVASOURCE 1,000 ML BOTTLE GT SCH (18:11)
[2017-08-10] MEDS ORDERED: DEXTROSE 50%-WATER 50 ML DISP.SYRIN IV PRN (20:00)
--- NOTE | 2017-08-10 20:20 | NUR ---
Received pt on vent support on current vent settings,pt stable no respiratory distress noted, no sob noted, alarms are on and audible, ventilator is plugged into red outlet, ambu bag at bedside, will continue monitoring per MDS orders. Addendum: 08/10/17 at 2020 by NADIYA OCAMPO RT Amended: Links added.
[2017-08-10] MEDS: MICAFUNGIN SODIUM 100 MG in IV NS 0.9% 100 ML IV SCH (21:46)
[2017-08-10] MEDS: LATANOPROST EYE DROP 0.005% 2.5 ML BOTTLE EACHEYE SCH (21:50)
[2017-08-10] MEDS: SENNOSIDES 8.6 MG TABLET PO SCH (21:51)
[2017-08-10] MEDS: ATORVASTATIN 10 MG TABLET PO SCH (21:51)
--- NOTE | 2017-08-10 22:21 | NUR ---
Patient RTCFV, RTSFV, amd RTSVM positive for DVT. Informed attending nurse (Kimberly) of test results.
[2017-08-10] MEDS: MIRTAZAPINE 15 MG TABLET PO SCH (22:31)
[2017-08-10] MEDS: INSULIN DETEMIR 100 UNIT/ML CARTRIDGE SQ SCH (22:50)
[2017-08-10] MEDS ORDERED: INSULIN GLARGINE, 100 UNIT/ML CARTRIDGE SQ ONE (22:58)
[2017-08-11] VITALS (65 sets, daily range): BP systolic 61–144; BP diastolic 33–85
[2017-08-11] MEDS: ACETAMINOPHEN 325 MG TABLET PO PRN ×2 (00:03→06:09)
[2017-08-11] MEDS: INSULIN REGULAR, HUMAN 100 UNIT/ML 3 ML VIAL SQ PRN ×2 (00:05→05:36)
[2017-08-11] MEDS: METOCLOPRAMIDE HCL 10 MG/2 ML VIAL IV SCH ×3 (02:44→17:10)
[2017-08-11] MEDS: METRONIDAZOLE 500MG/ NS 100ML 500 MG in PREMIX 1 EA IV SCH ×3 (05:24→20:55)
[2017-08-11] MEDS: BLOOD SUGAR DIAGNOSTIC 1 EACH STRIP IN SCH ×3 (05:25→22:41)
[2017-08-11] MEDS: prednisoLONE ACET 1% OPHT DROP 5 ML BOTTLE LEFTEYE SCH ×3 (05:26→22:28)
[2017-08-11 05:40] LABS: BASOPHILS # (AUTO) 0.1 /CMM (0.0-0.2); BASOPHILS % (AUTO) 0.2 % (0.0-2.0); EOSINOPHILS % (AUTO) 0.1 % (0.0-6.0); HEMATOCRIT 22 % (33-45); HEMOGLOBIN 7.4 g/dL (11.5-14.8); LYMPHOCYTES # (AUTO) 2.7 /CMM (0.8-4.8); LYMPHOCYTES % (AUTO) 9.1 % (20.0-44.0); MEAN CORPUSCULAR HEMOGLOBIN 30 PG (26.0-33.0); MEAN CORPUSCULAR HGB CONC 34 g/dl (31.0-36.0); MEAN CORPUSCULAR VOLUME 88 fL (82-100); MONOCYTES # (AUTO) 1.6 /CMM (0.1-1.30); MONOCYTES % (AUTO) 5.5 % (2.0-12.0); NEUTROPHILS # (AUTO) 25.1 /CMM (1.8-8.9); NEUTROPHILS % (AUTO) 85.1 % (43.0-81.0); PLATELET COUNT (AUTO) 163 /CMM (150-450); RDW COEFFICIENT OF VARIATION 16.6 (11.5-15.0); RED BLOOD CELL COUNT(AUTO) 2.51 MIL/uL (4.0-5.2); WHITE BLOOD COUNT (AUTO) 29.5 K/uL (4.3-11.0)
[2017-08-11 06:03] LABS: CALCIUM, SERUM 8.4 mg/dL (8.5-10.1); CREATININE 2.5 mg/dL (0.6-1.3); MAGNESIUM 1.7 mg/dL (1.8-2.4); PHOSPHORUS 2.2 mg/dL (2.5-4.9); POTASSIUM 3.5 mmol/L (3.5-5.1)
[2017-08-11 06:36] LABS: BAND % (MANUAL) 2 % (0.0-5.0); LYMPHOCYTES % (MANUAL) 10 % (16-48); MONOCYTES % (MANUAL) 5 % (0-11.0); NEUTROPHILS % (MANUAL) 83 (42-76)
--- NOTE | 2017-08-11 07:30 | NUR ---
Called Dr. Cortes office for pt. result of positive DVT. According to the Office call exchange or Weight Reducing Technician that the professional model Physician is Dr. Shore. Operstor trying to call/paged Dr. Shore to cover for Dr. cortes for positive DVT of pt. Gave report to the day shift RN and made aware of pt. positive for DVT and to call again Dr. Shore.
--- NOTE | 2017-08-11 07:35 | NUR ---
PT RECEIVED ON VENT SUPPORT VIA ET TUBE WITH PARAMETERS [facility] SET ORDER: AC 16 VT 500 FIO2 30% PEEP +5 B/S CLEAR ON RIGHT, DIMINISHED ON LEFT. VENT IS PLUGGED INTO RED OUTLET WITH ALARMS ON AND AUDIBLE. IVANNA @ HOB. Addendum: 08/11/17 at 1422 by BHUPENDRA QUIROZ RT Amended: Links added.
[2017-08-11] MEDS: ZINC SULFATE 220 MG CAPSULE PO SCH (08:41)
[2017-08-11] MEDS: MEGESTROL ACETATE SUSP 400 MG/10 ML UDC PO SCH ×2 (08:41→17:06)
[2017-08-11] MEDS: MULTIVIT, IRON, MIN NO. 8, FA 1 TAB PO SCH (08:41)
[2017-08-11] MEDS: CLOPIDOGREL BISULFATE 75 MG TABLET PO SCH (08:41)
[2017-08-11] MEDS: ERGOCALCIFEROL (VITAMIN D 2) 50,000 UNIT CAPSULE PO SCH (08:42)
[2017-08-11] MEDS: LACTOBACILLUS RHAMNOSUS GG 1 EACH CAP.SPRINK PO SCH ×2 (08:42→17:06)
[2017-08-11] MEDS: ASCORBIC ACID 500 MG TABLET PO SCH (08:42)
[2017-08-11] MEDS: FAMOTIDINE (20 MG) 20 MG TABLET PO SCH (08:42)
[2017-08-11] MEDS: POTASSIUM CHLORIDE 20 MEQ POWDER PACKET GT SCH (08:42)
[2017-08-11] MEDS: NEUTRA PHOS 1 POWD.PACKET PO SCH ×2 (08:42→17:06)
[2017-08-11] MEDS: MIDODRINE HCL (5MG) 5 MG TABLET GT SCH ×2 (08:43→17:06)
[2017-08-11] MEDS: BRIMONIDINE TARTRATE OPHT SOLN 5 ML BOTTLE EACHEYE SCH ×2 (08:52→17:07)
[2017-08-11] MEDS: TIMOLOL 0.5% SOLN OPHTH 5 ML BOTTLE EACHEYE SCH ×2 (08:53→17:07)
[2017-08-11] MEDS: HYDROGEL DRESSING 90 GM TUBE TP SCH (09:00)
[2017-08-11] MEDS: MUPIROCIN OINT 2% 22 GM TUBE SCH ×2 (09:00→22:22)
[2017-08-11] MEDS: PROPOFOL 10MG/ML 50ML 50 ML IV PRN ×3 (09:03→17:29)
--- NOTE | 2017-08-11 09:21 | NUR ---
RN INITIAL NOTE PATIENT RECEIVED IN BED OBTUNDENT, PATIENT APPEAR IN DISTRESS INCREASED RESPIRATIONS NOTED NO PROPOFOL SEDATION THROUGHOUT THE NIGHT. PER MD NGUYEN SEDATION RESTARTED TO INCREASE COMFORT OF THE PATIENT PATIENT RECEIVED IN BILATERAL WRIST RESTRAINTS , RESTRAINTS CHECKED FOR CIRCULATION AND COMFORT ,PATIENT LEVOPHED CURRENTLY RUNNING AT 10 PATIENT B/P STABLE AT THIS TIME PATIENT. RN SPOKE WITH MD SIMONS IN REGARDS TO THE PATIENT POSITIVE DVT - PLT COUNT, HGB HCT AND CURRENT MEDICATIONS GIVEN PER MD OGDEN PATIENT ORDERED ELIQUS 2.5MG BID VIA GT AND DISCONTINUE HEPARIN BID. MD ACKNOWLEDGED THAT THIS MEDICATION IS NOT NORMALLY STARTED UPON HOSPITAL STAY HOWEVER REQUEST THAT THIS PATIENT IS STARTED ON THIS MEDICATION , PHARMACIST CALLED TO CONFIRM THIS ORDER. PATIENT STABLE AT THIS TIME RN WILL CONTINUE TO FOLLOW AND ADMINISTER ORDER/SCHEDULED MEDICATIONS.
[2017-08-11] MEDS: LORAZEPAM 1 MG TABLET PO SCH (10:04)
[2017-08-11] MEDS: MEROPENEM 500 MG in IV NS 0.9% 50 ML IV SCH (10:04)
[2017-08-11] MEDS: ATROPINE SULFATE OPHTH SOLN 15 ML BOTTLE EACHEYE SCH ×2 (10:04→17:08)
[2017-08-11] MEDS: FOLIC ACID 1 MG TABLET PO SCH (10:04)
[2017-08-11] MEDS: DOCUSATE SODIUM 100 MG CAPSULE PO SCH ×2 (10:04→17:06)
[2017-08-11] MEDS: PROSOURCE / PROSTAT (PYXIS) 30 ML UDC PO SCH (10:09)
[2017-08-11 11:22] LABS: ABG BASE EXCESS -4.1 mmol/L; ABG OXYGEN SATURATION 95.3 % (92.0-98.5); ABG PH 7.465 (7.350-7.450); ABG PO2 79.7 mmHg (75.0-100.0); AaDO2 102.5 mmHg; COHb 0.3 % (0.5-1.5); MetHb 0.7 % (0.0-1.5); O2Hb 94.3 % (94.0-97.0); PEEP,BG 5 cm H2O; SITE, ABG Left Brachial; VT, ABG 500 mL
--- NOTE | 2017-08-11 11:32 | NUR ---
VENT NATE MAC MD ORDER: VT 450 ML Addendum: 08/11/17 at 1132 by BHUPENDRA QUIROZ RT Amended: Links added.
--- NOTE | 2017-08-11 11:38 | NUR ---
RN NOTE RN CONTACTED PHARMACY MULTIPLE TIMES ABOUT THE NEED FOR AM MEDICATION PHARMACY ACKNOWLEDGED.
[2017-08-11] MEDS: APIXABAN 2.5 MG TABLET GT SCH ×2 (12:53→17:10)
[2017-08-11] MEDS: IV NS 0.9% 1,000 ML IV PRN (13:43)
--- NOTE | 2017-08-11 18:52 | NUR ---
RN CLOSING NOTES PT in bed on vent tolerating vent settings well no sob noted at this time patient daughter at bedside patietn daughter and sister updated on plan of care , patient remains obtundent patient received hemo dialysis today HD nurse only able to remove 200ml, today due to decrease in patient b/p. patient remains on Levophed and propofol without issues at this time, rn will endorse continuation of care to pm rn
--- NOTE | 2017-08-11 19:42 | NUR ---
RN NOTE PATIENT STABLE AT THIS TIME, RN INFORMED PM RN THAT CURRENTLY G-TUBE FEEDING TURNED OFF DUE TO PATIENT VOMITING MODERATE AMOUNT OF FLUID DURING BED BATH AT 6:30 PM , FEEDINGS HELD AT THIS TIME RESTART FEEDING IN 2HRS AT GOAL RATE OF 30ML/HR, PATIENT B/P AND HR CURRENTLY BEING MONITORED PATIENT REMAINS HYPOTENSIVE POST HEMODIALYSIS , PATIENT REMAINS TACHYCARDIC MD RONAK OGDEN AWARE OF PATIENT B/P DURING HEMODIALYSIS
--- NOTE | 2017-08-11 19:54 | NUR ---
Received pt on vent support on current vent settings,pt stable no respiratory distress noted, no sob noted, alarms are on and audible, ventilator is plugged into red outlet, ambu bag at bedside, will continue monitoring per MDS orders. Addendum: 08/11/17 at 1955 by NADIYA OCAMPO RT Amended: Links added.
--- NOTE | 2017-08-11 20:10 | NUR ---
PHLEBOTOMIST. INITIAL ASSESSMENT. RECEIVED THE PT REST ON THE BED. ORALLY INTUBATED. SEDATED WITH DIPRIVAN. ETT 7.5CM,AC 16,LIP 21CM,TV 450,FIO2 30%, PEEP 5. SAT 98%, NO ACUTE DISTRESS NOTED. FEED CRUSHER SHOWING S TACH. IV RT UPPER ARM MID LINE LINE IVF NS 40ML/H, DIPRIVAN 20MCG/KG/MIN,LEVO 10MCG/MIN,NS 40ML/H, HOB ELEVATED. GT CLAMPED. TURN AND REPOSITION Q2H. WILL CONTINUE TO MONITOR VITALS.
[2017-08-11] MEDS: NOREPINEPHRINE 16 MG in IV D5W 500 ML IV PRN (20:55)
[2017-08-11] MEDS ORDERED: VANCOMYCIN 1 GM in IV D5W 250 ML IV ONE (21:00)
[2017-08-11] MEDS: INSULIN DETEMIR 100 UNIT/ML CARTRIDGE SQ SCH (22:00)
[2017-08-11] MEDS: MICAFUNGIN SODIUM 100 MG in IV NS 0.9% 100 ML IV SCH (22:04)
[2017-08-11] MEDS: LATANOPROST EYE DROP 0.005% 2.5 ML BOTTLE EACHEYE SCH (22:30)
[2017-08-11] MEDS: ATORVASTATIN 10 MG TABLET PO SCH (22:46)
[2017-08-11] MEDS: MIRTAZAPINE 15 MG TABLET PO SCH (22:46)
[2017-08-11] MEDS: SENNOSIDES 8.6 MG TABLET PO SCH (22:46)
[2017-08-12] VITALS (103 sets, daily range): BP systolic 61–154; BP diastolic 45–99
[2017-08-12] MEDS: BLOOD SUGAR DIAGNOSTIC 1 EACH STRIP IN SCH ×4 (00:11→18:07)
[2017-08-12] MEDS: MEROPENEM 500 MG in IV NS 0.9% 50 ML IV SCH ×2 (00:11→11:31)
[2017-08-12] MEDS: PROPOFOL 10MG/ML 50ML 50 ML IV PRN ×3 (00:11→16:39)
[2017-08-12] MEDS: ACETAMINOPHEN 325 MG TABLET PO PRN ×2 (00:50→05:16)
[2017-08-12] MEDS: METOCLOPRAMIDE HCL 10 MG/2 ML VIAL IV SCH ×3 (01:27→17:00)
--- NOTE | 2017-08-12 03:57 | NUR ---
CONTAMINATION CONSULTANT. AM CARE. ORAL CARE, BED BATH GIVEN. LINEN CHANGED, REMAINING SAME VENT SETTING TOLERATED WELL. SAT 98%, DIRECTOR CASE MANAGEMENT SHOWING S TACH. IV RT UPPER ARM PICC LINE NS 40ML/H, LEVOPHED 12MCG/MIN, DIPRIVAN 20MCG/KG/MIN. HOB ELEVATED. GT INTACT. TURN AND REPOSITION Q2H. WILL CONTINUE TO MONITOR VITALS.
[2017-08-12 04:58] LABS: BASOPHILS # (AUTO) 0.1 /CMM (0.0-0.2); BASOPHILS % (AUTO) 0.2 % (0.0-2.0); EOSINOPHILS # (AUTO) 0.1 /CMM (0.0-0.7); EOSINOPHILS % (AUTO) 0.4 % (0.0-6.0); LYMPHOCYTES # (AUTO) 5.2 /CMM (0.8-4.8); MEAN CORPUSCULAR HEMOGLOBIN 30 PG (26.0-33.0); MEAN CORPUSCULAR HGB CONC 34 g/dl (31.0-36.0); MEAN CORPUSCULAR VOLUME 89 fL (82-100); MONOCYTES % (AUTO) 6.6 % (2.0-12.0); NEUTROPHILS # (AUTO) 23.2 /CMM (1.8-8.9); NEUTROPHILS % (AUTO) 75.8 % (43.0-81.0); PLATELET COUNT (AUTO) 139 /CMM (150-450); RDW COEFFICIENT OF VARIATION 16.6 (11.5-15.0); RED BLOOD CELL COUNT(AUTO) 2.28 MIL/uL (4.0-5.2)
[2017-08-12] MEDS: METRONIDAZOLE 500MG/ NS 100ML 500 MG in PREMIX 1 EA IV SCH ×3 (05:16→21:56)
[2017-08-12 05:27] LABS: ALANINE AMINOTRANSFERASE 12 U/L (12-78); ALBUMIN 1.7 g/dL (3.4-5.0); ALKALINE PHOSPHATASE 167 U/L (46-116); ASPARTATE AMINOTRANSFERASE 53 U/L (15-37); CALCIUM, SERUM 8.4 mg/dL (8.5-10.1); CARBON DIOXIDE 21 mmol/L (21-32); CHLORIDE 101 mmol/L (98-107); CREATININE 2.5 mg/dL (0.6-1.3); GLUCOSE 120 mg/dL (74-106); HEMATOCRIT 20 % (33-45); HEMOGLOBIN 6.8 g/dL (11.5-14.8); MAGNESIUM 1.5 mg/dL (1.8-2.4); POTASSIUM 4.2 mmol/L (3.5-5.1); SODIUM SERUM 134 mmol/L (136-145); UREA NITROGEN, BLOOD 34 mg/dL (7-18); WHITE BLOOD COUNT (AUTO) 30.7 K/uL (4.3-11.0)
[2017-08-12 05:33] LABS: IRON, SERUM 34 ug/dl (50-175)
[2017-08-12 05:37] LABS: TOTAL IRON BINDING CAPACITY < 36 ug/dl (250-450)
[2017-08-12 05:49] LABS: FERRITIN 5209 ng/mL (8-388); THYROID STIMULATING HORMONE 4.827 uIU/mL (0.358-3.74); URIC ACID 4.5 mg/dL (2.6-7.2)
[2017-08-12 05:52] LABS: BAND % (MANUAL) 2 % (0.0-5.0); LYMPHOCYTES % (MANUAL) 16 % (16-48); MONOCYTES % (MANUAL) 7 % (0-11.0); NEUTROPHILS % (MANUAL) 75 (42-76)
[2017-08-12 05:59] LABS: HEMOGLOBIN 7.3 g/dL (11.5-14.8)
[2017-08-12] MEDS: ATROPINE SULFATE OPHTH SOLN 15 ML BOTTLE EACHEYE SCH ×2 (06:31→17:00)
[2017-08-12] MEDS: prednisoLONE ACET 1% OPHT DROP 5 ML BOTTLE LEFTEYE SCH ×3 (06:32→21:58)
[2017-08-12 06:57] LABS: BILIRUBIN,DIRECT 0.7 mg/dL (0.0-0.2)
--- NOTE | 2017-08-12 07:45 | NUR ---
BIRD TRAPPER: pt.is sedated with Diprivan 20 mcg/kg/min deeply, weak reaction by deep pain stimuli, blind per report, cough reflex+, on wrists restraints, will titrate Diprivan, WBC 30., T 100.1, ST long time 140-145, MAP 57, will increase Levophed gtt, needs to switch for Hernan gtt?, GTF on hold d/t high residual episodes over night, now dark brown residual 80ml, H/H 7.2/22, Mg 1.5, HD done yesterday, lactic acid 3.2, all wounds care done at morning time per report, will speak with re: all above
[2017-08-12] MEDS: FAMOTIDINE (20 MG) 20 MG TABLET PO SCH (08:38)
[2017-08-12] MEDS: BRIMONIDINE TARTRATE OPHT SOLN 5 ML BOTTLE EACHEYE SCH ×2 (08:41→17:02)
[2017-08-12] MEDS: MUPIROCIN OINT 2% 22 GM TUBE SCH ×2 (08:42→21:00)
[2017-08-12] MEDS: TIMOLOL 0.5% SOLN OPHTH 5 ML BOTTLE EACHEYE SCH ×2 (08:42→17:02)
[2017-08-12] MEDS: APIXABAN 2.5 MG TABLET GT SCH (09:10)
[2017-08-12] MEDS: PROSOURCE / PROSTAT (PYXIS) 30 ML UDC PO SCH (09:10)
[2017-08-12] MEDS: NEUTRA PHOS 1 POWD.PACKET PO SCH ×2 (09:10→17:00)
[2017-08-12] MEDS: POTASSIUM CHLORIDE 20 MEQ POWDER PACKET GT SCH (09:11)
[2017-08-12] MEDS: LACTOBACILLUS RHAMNOSUS GG 1 EACH CAP.SPRINK PO SCH ×2 (09:11→17:00)
[2017-08-12] MEDS: ZINC SULFATE 220 MG CAPSULE PO SCH (09:13)
[2017-08-12] MEDS: FOLIC ACID 1 MG TABLET PO SCH (09:14)
[2017-08-12] MEDS: DOCUSATE SODIUM 100 MG CAPSULE PO SCH ×2 (09:14→17:04)
[2017-08-12] MEDS: CLOPIDOGREL BISULFATE 75 MG TABLET PO SCH (09:14)
[2017-08-12] MEDS: MULTIVIT, IRON, MIN NO. 8, FA 1 TAB PO SCH (09:14)
[2017-08-12] MEDS: ASCORBIC ACID 500 MG TABLET PO SCH (09:14)
[2017-08-12] MEDS: MIDODRINE HCL (5MG) 5 MG TABLET GT SCH ×2 (09:14→17:00)
[2017-08-12] MEDS: HYDROCODONE/APAP 5/325MG 1 EACH TABLET PO PRN (09:15)
[2017-08-12] MEDS: MEGESTROL ACETATE SUSP 400 MG/10 ML UDC PO SCH ×2 (09:16→17:00)
[2017-08-12 09:24] LABS: ABG BASE EXCESS -4.9 mmol/L; ABG PCO2 26.1 mmHg (35.0-45.0); ABG PH 7.461 (7.350-7.450); ABG PO2 81.8 mmHg (75.0-100.0); AaDO2 101.4 mmHg; COHb 0.3 % (0.5-1.5); MetHb 0.4 % (0.0-1.5); O2Hb 94.3 % (94.0-97.0); PEEP,BG 5 cm H2O; SITE, ABG Right Radial; VENT MODE, BG AC 16 450 30% +5; VT, ABG 450 mL
[2017-08-12] MEDS: HYDROGEL DRESSING 90 GM TUBE TP SCH (09:24)
--- NOTE | 2017-08-12 10:05 | NUR ---
SALES REPRESENTATIVE CASH REGISTERS: AM care started, suctioned orally with dark brown/black color secretion, pt.is desaturated to 89-83, keep HOB over 45, started GT LCS, applied ambu bag 100%O2 flow, called RT, changed [id number], increased Levo gtt, T 102.2/started cooling measures/blanket
--- NOTE | 2017-08-12 10:30 | NUR ---
NET APPLICATION ARCHITECT: got GT LCS 300ml dark brown/black suction, O2 sat. 94-98% on FiO2 30%, is updated with all above, ST 140-144, Levophed gtt, VS, H/H, lactic acid, see new orders, said: continue GT to LIS, NPO except meds
--- NOTE | 2017-08-12 11:00 | NUR ---
INFECTION CONTROL PRACTITIONER: pt.is off of sedation, no arms, legs activity, slightly grimacing with pain stimuli, cough/gag reflex+, unable to open eyes, will s/w
[2017-08-12] MEDS ORDERED: IV NS 0.9% 1,000 ML IV PRN ×2 (11:05→11:30)
--- NOTE | 2017-08-12 11:20 | NUR ---
MATHEMATICS TECHNICIAN: Levophed 30 mcg gtt now, ST 140-150, notified , ordered: 250ml NS, GI MD is in room, updated with all above, spoke with , pt family, no new order for now
[2017-08-12] MEDS ORDERED: IV NS 0.9% 250 ML IV ONE (11:30)
--- NOTE | 2017-08-12 11:35 | NUR ---
FULL SERVICE VENDING DRIVER: changed NS bolus for 1000ml, ordered: Phenylephrine gtt PRN, continue titrate pressor, start IVF NS 125ml/h, prob.BT with HD tomorrow
--- NOTE | 2017-08-12 12:00 | NUR ---
WHISTLE PUNK: is in room/updated with all above, said resume sedation to protect from distress
--- NOTE | 2017-08-12 13:00 | NUR ---
CROSS TIE TRAM LOADER: BS was 30 at 12.15, Dextrose 50%-50ml was given, BS 107 at 12.40, pt.is on Levemir, mild insulin SS, IVF NS 125ml/h, paged/messaged
--- NOTE | 2017-08-12 13:45 | NUR ---
ICE BAG ASSEMBLER: is in room, updated with all above, VS, pressor, H/H, emesis episode/GT to LIS coffee ground suction, BS 30 episode, charge nurse updated, ordered: CBC stat, change IVF for D5NS @125ml/h, H/H at 22.00. Mild insulin SS is same with NPO scale.
[2017-08-12] MEDS: IV D5/ 0.9% NACL 1,000 ML IV PRN (14:42)
[2017-08-12] MEDS: NOREPINEPHRINE 16 MG in IV D5W 500 ML IV PRN (15:07)
--- NOTE | 2017-08-12 15:30 | NUR ---
DISPATCH ASSOCIATE: H/H 5.04/12, charge nurse spoke with , : orders: transfuse one platelets pher., 2 units PRBS, check H/H at 23.00, f/u with acute bleeding standing orders, one PRBC with HD tomorrow, H/H q6h, pt.family was notified/got consent for BT from pt.daughter
[2017-08-12 16:26] LABS: BASOPHILS # (AUTO) 0.1 /CMM (0.0-0.2); BASOPHILS % (AUTO) 0.3 % (0.0-2.0); EOSINOPHILS % (AUTO) 0.2 % (0.0-6.0); LYMPHOCYTES # (AUTO) 3.9 /CMM (0.8-4.8); LYMPHOCYTES % (AUTO) 15.1 % (20.0-44.0); MEAN CORPUSCULAR HEMOGLOBIN 29 PG (26.0-33.0); MEAN CORPUSCULAR HGB CONC 32 g/dl (31.0-36.0); MEAN CORPUSCULAR VOLUME 90 fL (82-100); MONOCYTES # (AUTO) 2.2 /CMM (0.1-1.30); MONOCYTES % (AUTO) 8.6 % (2.0-12.0); NEUTROPHILS # (AUTO) 19.5 /CMM (1.8-8.9); NEUTROPHILS % (AUTO) 75.8 % (43.0-81.0); PLATELET COUNT (AUTO) 190 /CMM (150-450); RDW COEFFICIENT OF VARIATION 17.1 (11.5-15.0); RED BLOOD CELL COUNT(AUTO) 2.06 MIL/uL (4.0-5.2); WHITE BLOOD COUNT (AUTO) 25.7 K/uL (4.3-11.0)
[2017-08-12 16:29] LABS: HEMOGLOBIN 5.9 g/dL (11.5-14.8)
[2017-08-12 16:30] LABS: HEMATOCRIT 19 % (33-45)
[2017-08-12] MEDS: INSULIN REGULAR, HUMAN 100 UNIT/ML 3 ML VIAL SQ PRN (18:14)
[2017-08-12 18:42] LABS: LYMPHOCYTES % (MANUAL) 18 % (16-48); MONOCYTES % (MANUAL) 8 % (0-11.0); NEUTROPHILS % (MANUAL) 74 (42-76)
--- NOTE | 2017-08-12 21:23 | NUR ---
PT RECEIVED INTUBATED WITH 7.5 ETT SECURED AT 21CM AT THE LIP. NO RESP DISTRESS NOTED. PT TOLERATING VENT SETTINGS. SX'D FOR MOD AMT OF THICK VALE SECRETIONS. VENT ALARMS SET AND AUDIBLE. AMBU BAG AT [facility]. VENT PLUGGED INTO RED OUTLET. WILL CONTINUE TO MONITOR. Addendum: 08/12/17 at 2125 by JO ANN THAO RT Amended: Links added.
--- NOTE | 2017-08-12 21:27 | NUR ---
CERTIFIED ENERGY MANAGER. INITIAL ASSESSMENT. RECEIVED THE PT REST ON THE BED ORALLY INTUBATED, ETT 7.5CM,LIP 21, AC 16,LIP 21CM,TV 450,FIO2 30%, PEEP 5. SAT 98%. MOTION PICTURE SET WORKER SHOWING S TACH. IV RT UPPER ARM PICC LINE LEVOPHED 12MCG/MIN, DIPRIVAN 10MCG/KG/MIN,D5NS 10ML/H. AT THIS TIME. BLOOD RUNNING. 2ND UNIT PRBC RUNNING. DURING TRANSFUSION NOP COMPLICATION NOTED.HOB ELEVATED. GT INTERMITTENT SUCTION. TURN AND REPOSITION Q2H. WILL CONTINUE TO MONITOR VITALS.
[2017-08-12] MEDS: MICAFUNGIN SODIUM 100 MG in IV NS 0.9% 100 ML IV SCH (21:56)
[2017-08-12] MEDS: LATANOPROST EYE DROP 0.005% 2.5 ML BOTTLE EACHEYE SCH (21:58)
[2017-08-12] MEDS: SENNOSIDES 8.6 MG TABLET PO SCH (22:00)
[2017-08-12] MEDS: ATORVASTATIN 10 MG TABLET PO SCH (22:00)
[2017-08-12] MEDS: MIRTAZAPINE 15 MG TABLET PO SCH (22:00)
[2017-08-13] VITALS (116 sets, daily range): BP systolic 48–158; BP diastolic 15–103
[2017-08-13 00:47] LABS: HEMOGLOBIN 11.3 g/dL (11.5-14.8)
[2017-08-13] MEDS: MEROPENEM 500 MG in IV NS 0.9% 50 ML IV SCH ×3 (01:32→22:00)
[2017-08-13] MEDS: BLOOD SUGAR DIAGNOSTIC 1 EACH STRIP IN SCH ×4 (01:32→18:06)
[2017-08-13] MEDS: METOCLOPRAMIDE HCL 10 MG/2 ML VIAL IV SCH ×3 (02:36→17:41)
--- NOTE | 2017-08-13 04:12 | NUR ---
BUNDLES HANGER. AM CARE, ORAL CARE, BED BATH GIVEN. LINEN CHANGED, REMAINING SAME VENT SETTING . SAT 98%. ATHLETIC MONITOR SHOWING NSRR. IV RT UPPER ARM PICC LINE IVF D5W 125ML/H, LEVO 12MCG//MIN, DIPRIVAN 10MCG/KG/MIN, NACHO HAND WEEPING. TEMPERATURE 99. HOB ELEVATED, TURN AND REPOSITION Q2H. WILL CONTINUE TO MONITOR VITALS.
[2017-08-13] MEDS: IV D5/ 0.9% NACL 1,000 ML IV PRN ×2 (04:31→16:30)
[2017-08-13] MEDS: METRONIDAZOLE 500MG/ NS 100ML 500 MG in PREMIX 1 EA IV SCH ×3 (04:31→21:26)
[2017-08-13] MEDS: PROPOFOL 10MG/ML 50ML 50 ML IV PRN (04:32)
[2017-08-13 05:27] LABS: HEMOGLOBIN 11.3 g/dL (11.5-14.8)
[2017-08-13 05:47] LABS: CALCIUM, SERUM 8.8 mg/dL (8.5-10.1); CREATININE 2.5 mg/dL (0.6-1.3); POTASSIUM 5.3 mmol/L (3.5-5.1)
[2017-08-13] MEDS: prednisoLONE ACET 1% OPHT DROP 5 ML BOTTLE LEFTEYE SCH ×3 (06:07→21:27)
[2017-08-13] MEDS: ATROPINE SULFATE OPHTH SOLN 15 ML BOTTLE EACHEYE SCH ×2 (06:07→16:36)
--- NOTE | 2017-08-13 06:50 | NUR ---
POSTAL TRANSPORTATION CLERK. TEMPERATURE 100.1. TYLENOL GIVEN. NGT CLAMPED/ COOLING BLANKET PLACED.
[2017-08-13] MEDS: FAMOTIDINE (20 MG) 20 MG TABLET PO SCH (07:40)
--- NOTE | 2017-08-13 07:40 | NUR ---
GATE PERSON: pt.is sedated with 5mcg/kg/m Diprivan, no arms/legs activity, cataracts/blind-unable to see pupils reaction, slightly grimacing by pain stimuli, cough/gag reflex +, ST 110-115, SBP 90-100, on 10 mcg Levophed gtt, FiO2 30%, O2 sat. 94-98%, K+5.3, Na 132/waiting HD today, got 2 PRBC units, one platelets unit over night, H/H 11.3 now, GT LIS 100ml amount dark brown over night, keep HOB over 40', all wounds care is done over night per report, T100.0 now, cooling measures implemented, IVF D5NS 125ml/h, will s/w
--- NOTE | 2017-08-13 08:00 | NUR ---
PT. RECEIVED ON VENT SUPPORT VIA ET TUBE WITH PARAMETERS BELLOW ORDER: AC 16 VT 450 FIO2 30% PEEP 5 B/S CLEAR BILATERAL VENT PLUGGED INTO RED OUTLET WITH ALARMS ON AND FUNCTIONING. IVANNA @ HOB. Addendum: 08/13/17 at 0954 by BHUPENDRA QUIROZ RT Amended: Links added.
[2017-08-13 08:43] LABS: ABG BASE EXCESS -6.9 mmol/L; ABG OXYGEN SATURATION 95.9 % (92.0-98.5); ABG PCO2 23.1 mmHg (35.0-45.0); ABG PH 7.442 (7.350-7.450); ABG PO2 86.1 mmHg (75.0-100.0); AaDO2 100.7 mmHg; COHb 0.3 % (0.5-1.5); MetHb 0.3 % (0.0-1.5); O2Hb 95.3 % (94.0-97.0); PEEP,BG 5 cm H2O; SITE, ABG Left Brachial; VT, ABG 450 mL
[2017-08-13] MEDS: POTASSIUM CHLORIDE 20 MEQ POWDER PACKET GT SCH (09:00)
[2017-08-13] MEDS: DOCUSATE SODIUM 100 MG CAPSULE PO SCH ×2 (09:00→16:38)
[2017-08-13] MEDS: TIMOLOL 0.5% SOLN OPHTH 5 ML BOTTLE EACHEYE SCH ×2 (09:54→16:36)
[2017-08-13] MEDS: MUPIROCIN OINT 2% 22 GM TUBE SCH ×2 (09:54→21:27)
[2017-08-13] MEDS: BRIMONIDINE TARTRATE OPHT SOLN 5 ML BOTTLE EACHEYE SCH ×2 (09:54→16:36)
[2017-08-13] MEDS: ZINC SULFATE 220 MG CAPSULE PO SCH (09:55)
[2017-08-13] MEDS: ASCORBIC ACID 500 MG TABLET PO SCH (09:55)
[2017-08-13] MEDS: LACTOBACILLUS RHAMNOSUS GG 1 EACH CAP.SPRINK PO SCH ×2 (09:55→16:30)
[2017-08-13] MEDS: MIDODRINE HCL (5MG) 5 MG TABLET GT SCH ×2 (09:55→16:33)
[2017-08-13] MEDS: NEUTRA PHOS 1 POWD.PACKET PO SCH ×2 (09:55→16:30)
[2017-08-13] MEDS: MULTIVIT, IRON, MIN NO. 8, FA 1 TAB PO SCH (09:56)
[2017-08-13] MEDS: FOLIC ACID 1 MG TABLET PO SCH (09:56)
[2017-08-13] MEDS: HYDROGEL DRESSING 90 GM TUBE TP SCH (09:58)
--- NOTE | 2017-08-13 10:00 | NUR ---
ROOM DESIGNER: is in room, updated with pt.current status, VS, Levophed gtt, neurostatus/sedation vacation result (now: Diprivan 5mcg/kg/m, will stop), GI bleed, BT history, current H/H (q6h continue), high T episodes, DVT/ note, NPO except meds, GT LIS amount/color, IVF (D5NS@125ml/h, said: continue), BS, anuria, confirmed: HD today, see new orders, spoke with charge nurse. Pt.had 2 BM, no melena, AM/skin/wounds care is done, sent stool for OB
[2017-08-13] MEDS: MEGESTROL ACETATE SUSP 400 MG/10 ML UDC PO SCH ×2 (10:01→16:38)
[2017-08-13] MEDS: PROSOURCE / PROSTAT (PYXIS) 30 ML UDC PO SCH (10:01)
[2017-08-13] MEDS: LORAZEPAM 1 MG TABLET PO SCH (10:30)
[2017-08-13] MEDS: INSULIN REGULAR, HUMAN 100 UNIT/ML 3 ML VIAL SQ PRN ×2 (12:04→18:31)
[2017-08-13 12:20] LABS: BASOPHILS # (AUTO) 2.2 /CMM (0.0-0.2); EOSINOPHILS # (AUTO) 0.2 /CMM (0.0-0.7); EOSINOPHILS % (AUTO) 0.8 % (0.0-6.0); HEMATOCRIT 33 % (33-45); HEMOGLOBIN 11.3 g/dL (11.5-14.8); LYMPHOCYTES % (AUTO) 3.6 % (20.0-44.0); MEAN CORPUSCULAR HEMOGLOBIN 30 PG (26.0-33.0); MEAN CORPUSCULAR HGB CONC 34 g/dl (31.0-36.0); MEAN CORPUSCULAR VOLUME 88 fL (82-100); MONOCYTES # (AUTO) 1.3 /CMM (0.1-1.30); MONOCYTES % (AUTO) 4.5 % (2.0-12.0); NEUTROPHILS # (AUTO) 24.4 /CMM (1.8-8.9); NEUTROPHILS % (AUTO) 83.6 % (43.0-81.0); PLATELET COUNT (AUTO) 294 /CMM (150-450); RDW COEFFICIENT OF VARIATION 15.6 (11.5-15.0); RED BLOOD CELL COUNT(AUTO) 3.81 MIL/uL (4.0-5.2); WHITE BLOOD COUNT (AUTO) 29.2 K/uL (4.3-11.0)
[2017-08-13 12:25] LABS: BASOPHILS % (AUTO) 7.5 % (0.0-2.0)
[2017-08-13 12:37] LABS: ALBUMIN 1.5 g/dL (3.4-5.0); BILIRUBIN,DIRECT 0.9 mg/dL (0.0-0.2); BILIRUBIN,TOTAL 1.4 mg/dL (0.2-1.0); TOTAL PROTEIN, SERUM 4.7 g/dL (6.4-8.2)
[2017-08-13 12:54] LABS: EOSINOPHILS % (MANUAL) 1 % (0-4); LYMPHOCYTES % (MANUAL) 11 % (16-48); MONOCYTES % (MANUAL) 11 % (0-11.0); NEUTROPHILS % (MANUAL) 77 (42-76)
--- NOTE | 2017-08-13 13:30 | NUR ---
FINAL ASSEMBLY WORKER: pt.is more reactive now, grimacing, eyelids activity by touch/light pain, RR up to 28, resumed sedation with 5 mcg/kg/m Diprivan
--- NOTE | 2017-08-13 13:55 | NUR ---
DOOR OPENER: is in room, notified re pt.history, BT, GT LIS amount/GIB, T spikes, DVT, pt.current condition, neuro status, ABG, VS, I/O, Levophed gtt, IVF, see new orders
[2017-08-13] MEDS: Z GUARD REMEDY 2 OZ OINT TP PRN (14:09)
[2017-08-13] MEDS: NOREPINEPHRINE 16 MG in IV D5W 500 ML IV PRN (14:29)
--- NOTE | 2017-08-13 17:10 | NUR ---
WILD OYSTER HARVESTER: SBP dropped down to 74-68, MAP 40-61, increased Levophed 40 mcg/m per protocol, sometimes unable to check by monitor, but manually BP around 130-90?, called to pharmacy to get NeoSynephrine stat. was in room 14.00, 15.00, were updated with all above
--- NOTE | 2017-08-13 17:50 | NUR ---
INTERNATIONAL GUEST COORDINATOR: HD nurse updated with pt.VS, labs, max 40 mcg/m Levophed running, HD, Hernan gtt are started
[2017-08-13] MEDS: PHENYLEPHRINE 40 MG in IV D5W 250 ML IV PRN ×2 (17:55→22:02)
--- NOTE | 2017-08-13 18:20 | NUR ---
JUNIOR SOFTWARE DEVELOPER: max 40 mcg/m Levo gtt, 200 mcg Hernan gtt are running, pt.had low BP episodes down to 69, HD nurse spoke with /canceled HD
[2017-08-13 18:47] LABS: HEMOGLOBIN 11.4 g/dL (11.5-14.8)
[2017-08-13] MEDS: MIRTAZAPINE 15 MG TABLET PO SCH (21:25)
[2017-08-13] MEDS: ATORVASTATIN 10 MG TABLET PO SCH (21:25)
[2017-08-13] MEDS: SENNOSIDES 8.6 MG TABLET PO SCH (21:25)
[2017-08-13] MEDS: MICAFUNGIN SODIUM 100 MG in IV NS 0.9% 100 ML IV SCH (21:26)
[2017-08-13] MEDS: LATANOPROST EYE DROP 0.005% 2.5 ML BOTTLE EACHEYE SCH (21:28)
[2017-08-13] MEDS ORDERED: PHENYLEPHRINE 10 MG/ML VIAL ONE (21:32)
[2017-08-14] VITALS (109 sets, daily range): BP systolic 77–121; BP diastolic 45–90
[2017-08-14 00:29] LABS: HEMOGLOBIN 12.7 g/dL (11.5-14.8)
[2017-08-14] MEDS: BLOOD SUGAR DIAGNOSTIC 1 EACH STRIP IN SCH ×5 (00:29→23:25)
[2017-08-14] MEDS: PROPOFOL 10MG/ML 50ML 50 ML IV PRN (00:30)
[2017-08-14] MEDS: IV D5/ 0.9% NACL 1,000 ML IV PRN ×3 (00:30→18:11)
[2017-08-14] MEDS: INSULIN REGULAR, HUMAN 100 UNIT/ML 3 ML VIAL SQ PRN ×5 (00:33→23:28)
[2017-08-14] MEDS: METOCLOPRAMIDE HCL 10 MG/2 ML VIAL IV SCH ×3 (02:04→18:03)
[2017-08-14] MEDS: NOREPINEPHRINE 16 MG in IV D5W 500 ML IV PRN ×3 (02:04→18:03)
[2017-08-14 05:00] LABS: BASOPHILS # (AUTO) 0.1 /CMM (0.0-0.2); BASOPHILS % (AUTO) 0.3 % (0.0-2.0); EOSINOPHILS # (AUTO) 0.2 /CMM (0.0-0.7); EOSINOPHILS % (AUTO) 0.8 % (0.0-6.0); HEMATOCRIT 35 % (33-45); HEMOGLOBIN 11.9 g/dL (11.5-14.8); LYMPHOCYTES # (AUTO) 3.3 /CMM (0.8-4.8); LYMPHOCYTES % (AUTO) 11.8 % (20.0-44.0); MEAN CORPUSCULAR HEMOGLOBIN 30 PG (26.0-33.0); MEAN CORPUSCULAR HGB CONC 34 g/dl (31.0-36.0); MEAN CORPUSCULAR VOLUME 88 fL (82-100); MONOCYTES % (AUTO) 10.7 % (2.0-12.0); NEUTROPHILS # (AUTO) 21.4 /CMM (1.8-8.9); NEUTROPHILS % (AUTO) 76.4 % (43.0-81.0); PLATELET COUNT (AUTO) 277 /CMM (150-450); RDW COEFFICIENT OF VARIATION 14.9 (11.5-15.0); RED BLOOD CELL COUNT(AUTO) 3.94 MIL/uL (4.0-5.2)
[2017-08-14 05:21] LABS: BILIRUBIN,TOTAL 1.1 mg/dL (0.2-1.0); CALCIUM, SERUM 8.2 mg/dL (8.5-10.1); CREATININE 2.6 mg/dL (0.6-1.3); MAGNESIUM 1.5 mg/dL (1.8-2.4); PHOSPHORUS 4.9 mg/dL (2.5-4.9); TOTAL PROTEIN, SERUM 4.9 g/dL (6.4-8.2)
[2017-08-14] MEDS: METRONIDAZOLE 500MG/ NS 100ML 500 MG in PREMIX 1 EA IV SCH ×3 (05:31→20:15)
[2017-08-14 05:33] LABS: BAND % (MANUAL) 7 % (0.0-5.0); EOSINOPHILS % (MANUAL) 1 % (0-4); LYMPHOCYTES % (MANUAL) 9 % (16-48); MONOCYTES % (MANUAL) 9 % (0-11.0); NEUTROPHILS % (MANUAL) 74 (42-76)
[2017-08-14] MEDS: prednisoLONE ACET 1% OPHT DROP 5 ML BOTTLE LEFTEYE SCH ×3 (05:33→21:16)
[2017-08-14 05:38] LABS: ALBUMIN 1.3 g/dL (3.4-5.0)
[2017-08-14] MEDS: ATROPINE SULFATE OPHTH SOLN 15 ML BOTTLE EACHEYE SCH ×2 (06:18→16:32)
--- NOTE | 2017-08-14 07:15 | NUR ---
COMMUNICATIONS MANAGER NOTES RECEIVED PATIENT SEDATED, NO IN ACUTE DISTRESS , RESPIRATIONS EVEN AND UNLABORED , SPO2 OF 100% VIA MECHANICAL VENTILATOR SETTINGS ORDERED , GAG / COUGH REFLEX PRESENT , ST 115 ON BEDSIDE MONITOR , GT ON LOW INTERMITTENT SUCTION DRAINING WITH BLACK COFFEE GROUND OUTPUT , L SUBCLAVIAN PERMA CATH C/D/I , ON KCI MATTRESS , MARIPOSA PICC LINE PATENT AND INTACT WITH LEVOPHED @ 28MCG/MIN , D5NS @ 125ML/HR , DIPRIVAN @ 5MCG/KG/MIN INFUSING WELL , ALL NEEDS ATTENDED , BED ON LOW AND LOCKED POSITION , SIDE RAILS X2 , HOB @ 35 WILL CONTINUE TO MONITOR .
--- NOTE | 2017-08-14 08:02 | NUR ---
RT PATIENT REC'D ORALLY INTUBATED ON MECH VENT WITH SETTINGS SET BY MD CECILY ANDRADE. VENT ALARMS CHECKED+ AUDIBLE. CUFF PRESSURE CHECKED ALL ROUND LOGGER. SX'D WITH MOD AMT VALE SEMITHICK SECRETIONS. B/S DIM COARSE. PATIENT IN CRITICAL CONDITION. AMBU BAG AT [facility]. CONT CURRENT PLAN OF RESP CARE.
[2017-08-14] MEDS: DOCUSATE SODIUM 100 MG CAPSULE PO SCH ×2 (08:12→16:27)
[2017-08-14] MEDS: FOLIC ACID 1 MG TABLET PO SCH (08:12)
[2017-08-14] MEDS: MEGESTROL ACETATE SUSP 400 MG/10 ML UDC PO SCH ×2 (08:12→16:27)
[2017-08-14] MEDS: MIDODRINE HCL (5MG) 5 MG TABLET GT SCH ×2 (08:12→16:27)
[2017-08-14] MEDS: NEUTRA PHOS 1 POWD.PACKET PO SCH ×2 (08:12→16:27)
[2017-08-14] MEDS: POTASSIUM CHLORIDE 20 MEQ POWDER PACKET GT SCH (08:12)
[2017-08-14] MEDS: LACTOBACILLUS RHAMNOSUS GG 1 EACH CAP.SPRINK PO SCH ×2 (08:12→16:27)
[2017-08-14] MEDS: ZINC SULFATE 220 MG CAPSULE PO SCH (08:13)
[2017-08-14] MEDS: MULTIVIT, IRON, MIN NO. 8, FA 1 TAB PO SCH (08:13)
[2017-08-14] MEDS: PROSOURCE / PROSTAT (PYXIS) 30 ML UDC PO SCH (08:13)
[2017-08-14] MEDS: ASCORBIC ACID 500 MG TABLET PO SCH (08:13)
[2017-08-14] MEDS: TIMOLOL 0.5% SOLN OPHTH 5 ML BOTTLE EACHEYE SCH ×2 (08:26→16:33)
[2017-08-14] MEDS: PANTOPRAZOLE 40 MG VIAL IV SCH (08:26)
[2017-08-14] MEDS: BRIMONIDINE TARTRATE OPHT SOLN 5 ML BOTTLE EACHEYE SCH ×2 (08:26→16:32)
[2017-08-14] MEDS: MUPIROCIN OINT 2% 22 GM TUBE SCH ×2 (08:27→21:15)
[2017-08-14] MEDS: Z GUARD REMEDY 2 OZ OINT TP PRN (08:27)
[2017-08-14] MEDS: HYDROGEL DRESSING 90 GM TUBE TP SCH (08:27)
[2017-08-14 09:05] LABS: ABG OXYGEN SATURATION 94.7 % (92.0-98.5); ABG PCO2 25.9 mmHg (35.0-45.0); ABG PH 7.371 (7.350-7.450); ABG PO2 81.1 mmHg (75.0-100.0); AaDO2 102.4 mmHg; COHb 0.1 % (0.5-1.5); MetHb 0.3 % (0.0-1.5); O2Hb 94.3 % (94.0-97.0); SITE, ABG Left Radial
--- NOTE | 2017-08-14 10:53 | NUR ---
DESCRIPTIVE CATALOG LIBRARIAN NOTES SEEN AND EVALUATED BY DR PEARL , DISCUSSED PT OFF SEDATION SINCE 0700 , NON RESPONSIVE , PUPILS ARE SLUGGISH , PER MD ORDER ROUTINE EEG , ORDERS CARRIED OUT
[2017-08-14] MEDS: MEROPENEM 500 MG in IV NS 0.9% 50 ML IV SCH ×2 (11:24→23:25)
[2017-08-14] MEDS: PHENYLEPHRINE 40 MG in IV D5W 250 ML IV PRN (12:10)
[2017-08-14 13:10] LABS: HEMOGLOBIN 11.6 g/dL (11.5-14.8)
--- NOTE | 2017-08-14 13:45 | NUR ---
LANDSCAPE CREW MEMBER NOTES SEEN AND EVALUATED BY DR GRAY , DISCUSSED , PT OFF SEDATION , LABS , REPEAT H/H RESULT , ON LEVO @ 40MCG AND KWAKU @ 10MCG , GT ON LOW INTERMITTENT SUCTION DRAINING WITH BLACK COFFEE GROUND OUTPUT , DISCUSSED ALSO TRANSFUSION HISTORY OF THE PT , PER MD START PT ON DDAVP 20MCG Q 12 X 4 DOSES . ORDERS CARRIED OUT
[2017-08-14] MEDS ORDERED: Magnesium 1 GM/2 ML VIAL IV ONE (15:30)
[2017-08-14] MEDS: DESMOPRESSIN 20 MCG in IV NS 0.9% 50 ML IV SCH (15:33)
[2017-08-14] MEDS: Magnesium 1GM/D5W 100ML PREMIX 100 ML IV SCH ×2 (15:36→16:33)
--- NOTE | 2017-08-14 15:45 | NUR ---
PLANT OPERATIONS WORKER NOTES SEEN AND EVALUATED BY DR EMERY , DISCUSSED LABS , CHEST XRAY AND ABG , TOLERATING CURRENT VENT SETTINGS WITH SPO2 OF 100% , ASKED MD IF HE WANTS TO CHANGE VENT SETTING PT HAS LOW BP , , ON LEVOPHED @ 40MCG/MIN , NEOSYNEPRINE @ 10MCG/MIN WITH SBP OF 110'S , NON RESPONSIVE , OFF SEDATION , GT ON LOW INTERMITTENT SUCTION DRAINING WITH DARK COFFEE GROUND OUTPUT , MD AWARE . Addendum: 08/14/17 at 1623 by GILMA PERKINS RN PT IS AFEBRILE , DISCUSSED TRANSFUSION HISTORY .
[2017-08-14 18:10] LABS: HEMOGLOBIN 11.5 g/dL (11.5-14.8)
--- NOTE | 2017-08-14 19:30 | NUR ---
PERIANESTHESIA MANAGER RCD PT OBTUNDED; NO SEDATION AT THIS TIME. ST ON MONITOR. KWAKU TITRATED OFF; LEVOPHED AT 40 MCG/MIN. G TUBE WITH LIS; NO OUTPUT NOTED AT THIS TIME. PT IS ANURIC. PENDING HEAD CT ONCE PT IS STABLE. CONTINUE TO MONITOR.
[2017-08-14] MEDS: ATORVASTATIN 10 MG TABLET PO SCH (21:14)
[2017-08-14] MEDS: MIRTAZAPINE 15 MG TABLET PO SCH (21:14)
[2017-08-14] MEDS: SENNOSIDES 8.6 MG TABLET PO SCH (21:14)
[2017-08-14] MEDS: MICAFUNGIN SODIUM 100 MG in IV NS 0.9% 100 ML IV SCH (21:15)
[2017-08-14] MEDS: LATANOPROST EYE DROP 0.005% 2.5 ML BOTTLE EACHEYE SCH (21:16)
--- NOTE | 2017-08-14 22:00 | NUR ---
NURSE INFORMATICIST ALL WOUND TREATMENT RENDERED; PT TOLERATED WELL.
--- NOTE | 2017-08-14 23:20 | NUR ---
CLINICAL COORDINATOR BLOOD SUGAR 257; 6 UNITS REGULAR INSULIN ADMINISTERED PER PROTOCOL.
[2017-08-15] VITALS (96 sets, daily range): BP systolic 66–138; BP diastolic 48–88
[2017-08-15] MEDS: DESMOPRESSIN 20 MCG in IV NS 0.9% 50 ML IV SCH ×2 (01:00→13:34)
[2017-08-15] MEDS: NOREPINEPHRINE 16 MG in IV D5W 500 ML IV PRN ×3 (01:00→19:18)
[2017-08-15] MEDS: METOCLOPRAMIDE HCL 10 MG/2 ML VIAL IV SCH ×3 (01:00→17:11)
[2017-08-15] MEDS: IV D5/ 0.9% NACL 1,000 ML IV PRN (02:02)
--- NOTE | 2017-08-15 03:15 | NUR ---
HHAS LEVOPHED TITRATED TO 26 MCG/MIN; CONTINUE TO TITRATE.
--- NOTE | 2017-08-15 04:24 | NUR ---
PT RECEIVED ORALLY INTUBATED WITH 7.5 ETT SECURED AT 21CM AT THE LIP. TOLERATING NOTED VENT SETTINGS. SX'D FOR MOD AMT OF THK VALE SECRETIONS. DAY HAUL OR FARM CHARTER BUS DRIVER DONE AND ETT SECURE WITH ANCHOR FAST. VENT ALARMS CHECKED AND AUDIBLE. AMBU BAG AT BEDSIDE. VENT PLUGGED INTO RED OUTLET. WILL CONTINUE TO MONITOR.
[2017-08-15 04:48] LABS: BASOPHILS % (AUTO) 0.1 % (0.0-2.0); EOSINOPHILS % (AUTO) 0.1 % (0.0-6.0); HEMATOCRIT 33 % (33-45); HEMOGLOBIN 10.6 g/dL (11.5-14.8); LYMPHOCYTES # (AUTO) 3.3 /CMM (0.8-4.8); LYMPHOCYTES % (AUTO) 8.7 % (20.0-44.0); MEAN CORPUSCULAR HEMOGLOBIN 30 PG (26.0-33.0); MEAN CORPUSCULAR HGB CONC 33 g/dl (31.0-36.0); MEAN CORPUSCULAR VOLUME 92 fL (82-100); MONOCYTES # (AUTO) 2.8 /CMM (0.1-1.30); MONOCYTES % (AUTO) 7.4 % (2.0-12.0); NEUTROPHILS # (AUTO) 31.5 /CMM (1.8-8.9); NEUTROPHILS % (AUTO) 83.7 % (43.0-81.0); PLATELET COUNT (AUTO) 331 /CMM (150-450); RDW COEFFICIENT OF VARIATION 16.2 (11.5-15.0); RED BLOOD CELL COUNT(AUTO) 3.55 MIL/uL (4.0-5.2)
[2017-08-15 04:50] LABS: WHITE BLOOD COUNT (AUTO) 37.7 K/uL (4.3-11.0)
[2017-08-15] MEDS: METRONIDAZOLE 500MG/ NS 100ML 500 MG in PREMIX 1 EA IV SCH ×3 (05:00→20:43)
[2017-08-15] MEDS: BLOOD SUGAR DIAGNOSTIC 1 EACH STRIP IN SCH ×3 (05:00→17:18)
[2017-08-15] MEDS: prednisoLONE ACET 1% OPHT DROP 5 ML BOTTLE LEFTEYE SCH ×3 (05:01→21:00)
[2017-08-15 05:05] LABS: BILIRUBIN,TOTAL 1.2 mg/dL (0.2-1.0); CALCIUM, SERUM 8.3 mg/dL (8.5-10.1); CREATININE 2.6 mg/dL (0.6-1.3); MAGNESIUM 1.8 mg/dL (1.8-2.4); PHOSPHORUS 5.4 mg/dL (2.5-4.9); POTASSIUM 3.6 mmol/L (3.5-5.1); TOTAL PROTEIN, SERUM 4.9 g/dL (6.4-8.2)
[2017-08-15 05:23] LABS: ALBUMIN 1.2 g/dL (3.4-5.0)
[2017-08-15 05:25] LABS: LYMPHOCYTES % (MANUAL) 9 % (16-48); MONOCYTES % (MANUAL) 5 % (0-11.0); NEUTROPHILS % (MANUAL) 86 (42-76)
--- NOTE | 2017-08-15 05:30 | NUR ---
MIDDLE SCHOOL MATH TEACHER BLOOD SUGAR 179; 3 UNITS REGULAR INSULIN ADMINISTERED PER PROTOCOL.
[2017-08-15] MEDS: INSULIN REGULAR, HUMAN 100 UNIT/ML 3 ML VIAL SQ PRN (05:42)
--- NOTE | 2017-08-15 06:29 | NUR ---
WELDER APPRENTICE COMBINATION NO OUTPUT FROM GTUBE FOR THE PAST 12 HOURS.
--- NOTE | 2017-08-15 07:00 | NUR ---
CAPSULE INSPECTOR- INITIAL NOTE RECEIVED PT INTUBATED AND OBTUNDED. PT CURRENTLY OFF SEDATION, EYES OPEN BUT DOES NOT FOLLOW COMMANDS. PT ORALLY INTUBATED 7.0, 21 @ THE LIP. NO SOB OR DISTRESS PRESENT. BEDSIDE MONITOR REVEALS SINUS TACHYCARDIA. G-TUBE CURRENTLY CLAMPED (NO OUTPUT NOTED AT THIS TME). PT REMAINS NPO. MARIPOSA PICC LINE RUNNING D5NS @ 125 ML/HR AND LEVOPHED GTT AT 26 MCG/MIN. LEFT SUBCLAVIAN PERMACATH INTACT. SAFETY MEASURES TAKEN: BED LOCKED AND IN LOW POSITION, SIDE RAILS UP X2 AND BED ALARM ON, WILL CONTINUE TO MONITOR. Addendum: 08/15/17 at 1320 by MONSTER ARCE RN ERROR: PT ORALLY INTUBATED 7.5, NOT 7.0
[2017-08-15] MEDS: ATROPINE SULFATE OPHTH SOLN 15 ML BOTTLE EACHEYE SCH ×2 (07:29→16:43)
--- NOTE | 2017-08-15 07:45 | NUR ---
RT PATIENT REC'D ORALLY INTUBATED ON MECH VENT WITH SETTINGS SET BY MD CECILY ANDRADE. VENT ALARMS CHECKED+ AUDIBLE. CUFF PRESSURE CHECKED INTEGRITY DIRECTOR. SX'D WITH MOD AMT VALE SEMITHICK SECRETIONS. B/S DIM COARSE. PATIENT IN CRITICAL CONDITION. AMBU BAG AT [facility]. CONT CURRENT PLAN OF RESP CARE.
[2017-08-15] MEDS: LACTOBACILLUS RHAMNOSUS GG 1 EACH CAP.SPRINK PO SCH ×2 (08:01→16:41)
[2017-08-15] MEDS: MIDODRINE HCL (5MG) 5 MG TABLET GT SCH ×2 (08:01→16:41)
[2017-08-15] MEDS: POTASSIUM CHLORIDE 20 MEQ POWDER PACKET GT SCH (08:01)
[2017-08-15] MEDS: DOCUSATE SODIUM 100 MG CAPSULE PO SCH ×2 (08:01→16:41)
[2017-08-15] MEDS: ERGOCALCIFEROL (VITAMIN D 2) 50,000 UNIT CAPSULE PO SCH (08:01)
[2017-08-15] MEDS: NEUTRA PHOS 1 POWD.PACKET PO SCH ×2 (08:02→16:41)
[2017-08-15] MEDS: FOLIC ACID 1 MG TABLET PO SCH (08:02)
[2017-08-15] MEDS: MEGESTROL ACETATE SUSP 400 MG/10 ML UDC PO SCH ×2 (08:02→16:41)
[2017-08-15] MEDS: ASCORBIC ACID 500 MG TABLET PO SCH (08:03)
[2017-08-15] MEDS: ZINC SULFATE 220 MG CAPSULE PO SCH (08:03)
[2017-08-15] MEDS: MULTIVIT, IRON, MIN NO. 8, FA 1 TAB PO SCH (08:03)
[2017-08-15] MEDS: PROSOURCE / PROSTAT (PYXIS) 30 ML UDC PO SCH (08:03)
[2017-08-15] MEDS: MUPIROCIN OINT 2% 22 GM TUBE SCH ×2 (08:14→22:19)
[2017-08-15] MEDS: PANTOPRAZOLE 40 MG VIAL IV SCH (08:14)
[2017-08-15] MEDS: BRIMONIDINE TARTRATE OPHT SOLN 5 ML BOTTLE EACHEYE SCH ×2 (08:15→16:44)
[2017-08-15] MEDS: TIMOLOL 0.5% SOLN OPHTH 5 ML BOTTLE EACHEYE SCH ×2 (08:15→16:43)
[2017-08-15] MEDS: HYDROGEL DRESSING 90 GM TUBE TP SCH (08:15)
[2017-08-15 09:04] LABS: ABG BASE EXCESS -11.9 mmol/L; ABG OXYGEN SATURATION 95.3 % (92.0-98.5); ABG PCO2 27.6 mmHg (35.0-45.0); ABG PH 7.295 (7.350-7.450); ABG PO2 88.1 mmHg (75.0-100.0); AaDO2 93.4 mmHg; COHb 0.3 % (0.5-1.5); MetHb 1.3 % (0.0-1.5); O2Hb 93.8 % (94.0-97.0); SITE, ABG Left Radial
--- NOTE | 2017-08-15 09:43 | NUR ---
PER RN MONSTER SANCHEZ STABLE WILL CALL WHEN READY 08/15/17 0239
[2017-08-15] MEDS: MEROPENEM 500 MG in IV NS 0.9% 50 ML IV SCH ×2 (10:11→22:25)
--- NOTE | 2017-08-15 13:00 | NUR ---
EMERY WHEEL WORKER- EEG COMPLETED AT BEDSIDE. PT TOLERATED WELL. WILL CONTINUE TO MONITOR.
--- NOTE | 2017-08-15 15:00 | NUR ---
RN CARE MANAGER- HD STARTED ( ORDERED BY DR. CASTILLO). HD NURSE AT BEDSIDE. 1630- HD HAD TO BE STOPPED DUE TO PT'S DECREASING BP. 2L NS BOLUS & ALBUMIN WAS GIVEN BY HD NURSE PER DR. CASTILLO'S ORDER. PT CONTINUES ON LEVOPHED GTT. NO FLUID WAS REMOVED. WILL ADMINISTER VANCOMYCIN 500 MG PT'S RANDOM VANCO THIS AM WAS 16. WILL CONTINUE TO MONITOR.
--- NOTE | 2017-08-15 15:15 | NUR ---
DIAGNOSTIC ASSISTANT- INFORMED DR. CASTILLO PT'S TEMPERATURE HAS BEEN SLOWLY DECREASING, LATEST= 96.8. OBTAINED ORDER FOR MIAN HUGGER PRN. 1530- MIAN HUGGER APPLIED TO PATIENT. WILL CONTINUE TO MONITOR.
[2017-08-15] MEDS: ALBUMIN 25% 25 GM in PREMIX 1 EA IV PRN (15:50)
[2017-08-15] MEDS: VANCOMYCIN 500 MG in IV D5W 100 ML IV PRN (16:41)
--- NOTE | 2017-08-15 19:14 | NUR ---
LINEN ROOM ATTENDANT. INITIAL ASSESSMENT. RECEIVED THE PT REST ON THE BED. ORALLY INTUBATED. ETT #7.5CM, AC 16,LUP 21CM,TV 450,FIO2 50%,PEEP 5. SAT 98%. SAT 95%. FILING WRITER SHOWING S TACH. IV RT UPPER ARM PICC LINE ,LT SUBCLAVIAN HD CATH,LEVO 26MG/MIN,IVF D5NS 125ML/H,GT LOW INTERMITTENT SUCTIONNPO. HOB ELEVATED, TURN AND REPOSITION Q2H. WILL CONTINUE TO MONITOR VITALS.
[2017-08-15] MEDS: MICAFUNGIN SODIUM 100 MG in IV NS 0.9% 100 ML IV SCH (20:43)
--- NOTE | 2017-08-15 21:57 | NUR ---
PT RECEIVED ON VENT VIA CHARTED SETTINGS AND ROUTE. AMBU BAG AT BEDSIDE, ALARMS SET AND AUDIBLE. VENT PLUGGED INTO RED OUTLET. PT TOLERATING VENT WELL AT THIS TIME. WILL CONTINUE TO MONITOR Addendum: 08/15/17 at 2157 by SWATI HARMAN RT Amended: Links added.
[2017-08-15] MEDS: SENNOSIDES 8.6 MG TABLET PO SCH (22:16)
[2017-08-15] MEDS: ATORVASTATIN 10 MG TABLET PO SCH (22:16)
[2017-08-15] MEDS: LATANOPROST EYE DROP 0.005% 2.5 ML BOTTLE EACHEYE SCH (22:18)
[2017-08-15] MEDS: MIRTAZAPINE 15 MG TABLET PO SCH (22:20)
[2017-08-16] VITALS (91 sets, daily range): BP systolic 11–138; BP diastolic 31–117
[2017-08-16] MEDS: INSULIN REGULAR, HUMAN 100 UNIT/ML 3 ML VIAL SQ PRN ×3 (00:26→18:08)
[2017-08-16] MEDS: BLOOD SUGAR DIAGNOSTIC 1 EACH STRIP IN SCH ×4 (00:27→18:08)
[2017-08-16] MEDS: IV D5/ 0.9% NACL 1,000 ML IV PRN ×2 (01:40→12:40)
[2017-08-16] MEDS: METOCLOPRAMIDE HCL 10 MG/2 ML VIAL IV SCH ×3 (01:40→18:13)
[2017-08-16] MEDS: DESMOPRESSIN 20 MCG in IV NS 0.9% 50 ML IV SCH (01:40)
--- NOTE | 2017-08-16 04:32 | NUR ---
FLAME BURNER, AM CARE, ORAL CARE, BED BATH GIVEN. LINEN CHANGED. REMAINING SAME VENT SETTING TOLERATED WELL. SAT 98%, SAFETY AND HEALTH MANAGER SHOWING S TACH, AGFEBRILE. HOB ELEVATED, GT LOW INTERMITTENT SUCTION. IV RT UPPER ARM PICC LINE. IVF D5WNS 125ML/H, LEVOPHED 20MCG/MIN. HOB ELEVATED, TURN AND REPOSITION Q2H. WILL CONTINUE TO MONITOR VITALS,
[2017-08-16 05:24] LABS: CALCIUM, SERUM 7.7 mg/dL (8.5-10.1); CREATININE 2.4 mg/dL (0.6-1.3); POTASSIUM 3.8 mmol/L (3.5-5.1)
[2017-08-16] MEDS: METRONIDAZOLE 500MG/ NS 100ML 500 MG in PREMIX 1 EA IV SCH ×3 (05:56→21:23)
[2017-08-16] MEDS: ATROPINE SULFATE OPHTH SOLN 15 ML BOTTLE EACHEYE SCH ×2 (05:58→18:10)
[2017-08-16] MEDS: prednisoLONE ACET 1% OPHT DROP 5 ML BOTTLE LEFTEYE SCH ×3 (05:59→22:17)
--- NOTE | 2017-08-16 07:54 | NUR ---
ICU/RN INITIAL NOTES, AM RECEIVED REPORT FROM NIGHT NURSE. PT INTUBATED, ETT 7.5, 21CM AT THE LIP. PT ON VENT SETTINGS ORDERED, NO DISTRESS NOTED AT THIS TIME. PT OPENS EYES, RESPONDS TO PAINFUL STIMULI. PT SINUS TACHY ON TELE. GUTBE TO LIS. LEVO INFUSING FOR BP SUPPORT, IV FLUIDS ORDERED. ALL NEEDS WILL BE ATTENDED TO, SAFETY MEASURES TAKEN, BED IN LOW POSITION, SIDE RAILS UP, CALL LIGHT WITHIN REACH. PT TURNED AND REPOSITIONED.
[2017-08-16] MEDS: NEUTRA PHOS 1 POWD.PACKET PO SCH ×2 (09:31→18:08)
[2017-08-16] MEDS: POTASSIUM CHLORIDE 20 MEQ POWDER PACKET GT SCH (09:31)
[2017-08-16] MEDS: FOLIC ACID 1 MG TABLET PO SCH (09:31)
[2017-08-16] MEDS: PANTOPRAZOLE 40 MG VIAL IV SCH (09:31)
[2017-08-16] MEDS: MEGESTROL ACETATE SUSP 400 MG/10 ML UDC PO SCH ×2 (09:32→18:08)
[2017-08-16] MEDS: MIDODRINE HCL (5MG) 5 MG TABLET GT SCH ×2 (09:32→18:09)
[2017-08-16] MEDS: DOCUSATE SODIUM 100 MG CAPSULE PO SCH ×2 (09:32→18:09)
[2017-08-16] MEDS: ASCORBIC ACID 500 MG TABLET PO SCH (09:32)
[2017-08-16] MEDS: LACTOBACILLUS RHAMNOSUS GG 1 EACH CAP.SPRINK PO SCH ×2 (09:32→18:08)
[2017-08-16] MEDS: MULTIVIT, IRON, MIN NO. 8, FA 1 TAB PO SCH (09:32)
[2017-08-16] MEDS: ZINC SULFATE 220 MG CAPSULE PO SCH (09:32)
[2017-08-16] MEDS: MUPIROCIN OINT 2% 22 GM TUBE SCH ×2 (09:34→22:19)
[2017-08-16] MEDS: BRIMONIDINE TARTRATE OPHT SOLN 5 ML BOTTLE EACHEYE SCH ×2 (09:35→18:10)
[2017-08-16] MEDS: TIMOLOL 0.5% SOLN OPHTH 5 ML BOTTLE EACHEYE SCH ×2 (09:35→18:10)
[2017-08-16] MEDS: HYDROGEL DRESSING 90 GM TUBE TP SCH (09:36)
[2017-08-16] MEDS: PROSOURCE / PROSTAT (PYXIS) 30 ML UDC PO SCH (09:36)
[2017-08-16] MEDS: LORAZEPAM 1 MG TABLET PO SCH (09:43)
[2017-08-16] MEDS: MEROPENEM 500 MG in IV NS 0.9% 50 ML IV SCH ×2 (10:02→22:16)
--- NOTE | 2017-08-16 10:14 | NUR ---
SELENA met with pt's family requesting a letter for pt' son's chemical research technician to release pt. from penitentiary to come visit his mother, the pt. who is in critical condition and is deteriorating. SELENA completed letter and gave it to the family.
[2017-08-16 16:43] LABS: ABG BASE EXCESS -11.7 mmol/L; ABG OXYGEN SATURATION 84.8 % (92.0-98.5); ABG PCO2 24.2 mmHg (35.0-45.0); ABG PH 7.337 (7.350-7.450); AaDO2 276.3 mmHg; COHb 0.3 % (0.5-1.5); MetHb 0.5 % (0.0-1.5); O2Hb 84.1 % (94.0-97.0); PEEP,BG 5 cm H2O; SITE, ABG Left Radial; VT, ABG 450 mL
--- NOTE | 2017-08-16 17:10 | NUR ---
ICU/RN: PER ABG DONE. VENT CHANGES DONE, FI02 INCREASED TO 65%, WILL CONTINUE TO MONITOR
[2017-08-16] MEDS: NOREPINEPHRINE 16 MG in IV D5W 500 ML IV PRN (18:11)
--- NOTE | 2017-08-16 19:02 | NUR ---
ICU/RN: ENDING NOTES,AM REPORT ENDORSED TO NIGHT NURSE FOR CONTINUATION OF CARE. ALL NEEDS ATTENDED TO, SAFETY MEASURES TAKEN. PT ON VENT SETTINGS ORDERED BY MD. LEVO FOR BP SUPPORT, IV FLUIDS INFUSING ORDERED. BED BATH GIVEN, TURNED AND REPOSITIONED. SAFETY MEASURES TAKEN, BED IN LOW POSITION, SIDE RIALS UP, CALL LIGHT WITHIN REACH.
--- NOTE | 2017-08-16 20:25 | NUR ---
PT RECEIVED INTUBATED WITH 7.5 ETT SECURED AT 21CM AT THE LIP. NO RESP DISTRESS NOTED. PT TOLERATING VENT SETTINGS. SX'D FOR MOD AMT OF THICK VALE SECRETIONS. VENT ALARMS SET AND AUDIBLE. AMBU BAG AT [facility]. VENT PLUGGED INTO RED OUTLET. WILL CONTINUE TO MONITOR. Addendum: 08/16/17 at 2025 by JO ANN THAO RT Amended: Links added.
--- NOTE | 2017-08-16 20:58 | NUR ---
ART SALES CONSULTANT. INITIAL ASSESSMENT. RECEIVED THE PT REST ON THE BED. ORALLY INTUBATED. ETT 7.5,LIP 21CM,AC 16,TV 450.FIO2 65%,PEEP 5. SAT 97%. SALES AND OPERATIONS TRAINEE SHOWING S TACH. IV RT UPPER ARM PICC LINE LEVOPHED 14MCG/MIN,IVF D5NS 125ML/H. HOB ELEVATED. TURN AND REPOSITION Q2H. WILL CONTINUE TO MONITOR VITALS.
[2017-08-16] MEDS: MICAFUNGIN SODIUM 100 MG in IV NS 0.9% 100 ML IV SCH (21:23)
[2017-08-16] MEDS: ATORVASTATIN 10 MG TABLET PO SCH (22:16)
[2017-08-16] MEDS: MIRTAZAPINE 15 MG TABLET PO SCH (22:16)
[2017-08-16] MEDS: SENNOSIDES 8.6 MG TABLET PO SCH (22:16)
[2017-08-16] MEDS: LATANOPROST EYE DROP 0.005% 2.5 ML BOTTLE EACHEYE SCH (22:18)
[2017-08-17] VITALS (88 sets, daily range): BP systolic 72–138; BP diastolic 42–90
[2017-08-17] MEDS: IV D5/ 0.9% NACL 1,000 ML IV PRN (02:02)
[2017-08-17] MEDS: METOCLOPRAMIDE HCL 10 MG/2 ML VIAL IV SCH ×3 (02:03→17:31)
[2017-08-17 05:26] LABS: CALCIUM, SERUM 7.8 mg/dL (8.5-10.1); CREATININE 2.4 mg/dL (0.6-1.3)
[2017-08-17] MEDS: METRONIDAZOLE 500MG/ NS 100ML 500 MG in PREMIX 1 EA IV SCH ×3 (06:03→21:04)
[2017-08-17] MEDS: BLOOD SUGAR DIAGNOSTIC 1 EACH STRIP IN SCH ×5 (06:04→23:51)
[2017-08-17] MEDS: prednisoLONE ACET 1% OPHT DROP 5 ML BOTTLE LEFTEYE SCH ×3 (06:05→21:07)
[2017-08-17] MEDS: ATROPINE SULFATE OPHTH SOLN 15 ML BOTTLE EACHEYE SCH ×2 (06:05→17:28)
--- NOTE | 2017-08-17 07:37 | NUR ---
ICU/RN INITIAL NOTES, AM RECEIVED REPORT FROM NIGHT NURSE. PT INTUBATED, ETT 7.5, 21CM AT THE LIP. PT ON VENT SETTINGS ORDERED, NO DISTRESS NOTED AT THIS TIME. PT OPENS EYES, RESPONDS TO PAINFUL STIMULI. PT SINUS TACHY ON TELE. GTUBE TO LIS, LOW OUTPUT NOTED. LEVO INFUSING FOR BP SUPPORT AT 10MCG, IV FLUIDS ORDERED. ALL NEEDS WILL BE ATTENDED TO, SAFETY MEASURES TAKEN, BED IN LOW POSITION, SIDE RAILS UP, CALL LIGHT WITHIN REACH. PT TURNED AND REPOSITIONED.
[2017-08-17 08:43] LABS: ABG BASE EXCESS -10.1 mmol/L; ABG OXYGEN SATURATION 98.8 % (92.0-98.5); ABG PCO2 21.6 mmHg (35.0-45.0); ABG PH 7.405 (7.350-7.450); ABG PO2 193.2 mmHg (75.0-100.0); AaDO2 246.8 mmHg; COHb 0.3 % (0.5-1.5); MetHb 0.2 % (0.0-1.5); O2Hb 98.3 % (94.0-97.0); SITE, ABG Left Radial
[2017-08-17] MEDS: POTASSIUM CHLORIDE 20 MEQ POWDER PACKET GT SCH (09:00)
[2017-08-17] MEDS: DOCUSATE SODIUM 100 MG CAPSULE PO SCH ×2 (09:00→17:00)
[2017-08-17] MEDS: PANTOPRAZOLE 40 MG VIAL IV SCH (09:34)
[2017-08-17] MEDS: MULTIVIT, IRON, MIN NO. 8, FA 1 TAB PO SCH (09:35)
[2017-08-17] MEDS: ZINC SULFATE 220 MG CAPSULE PO SCH (09:35)
[2017-08-17] MEDS: NEUTRA PHOS 1 POWD.PACKET PO SCH ×2 (09:35→17:27)
[2017-08-17] MEDS: MIDODRINE HCL (5MG) 5 MG TABLET GT SCH ×2 (09:35→17:27)
[2017-08-17] MEDS: LACTOBACILLUS RHAMNOSUS GG 1 EACH CAP.SPRINK PO SCH ×2 (09:35→17:27)
[2017-08-17] MEDS: FOLIC ACID 1 MG TABLET PO SCH (09:35)
[2017-08-17] MEDS: PROSOURCE / PROSTAT (PYXIS) 30 ML UDC PO SCH (09:35)
[2017-08-17] MEDS: MEGESTROL ACETATE SUSP 400 MG/10 ML UDC PO SCH ×2 (09:35→17:27)
[2017-08-17] MEDS: ASCORBIC ACID 500 MG TABLET PO SCH (09:35)
[2017-08-17] MEDS: BRIMONIDINE TARTRATE OPHT SOLN 5 ML BOTTLE EACHEYE SCH ×2 (09:44→17:29)
[2017-08-17] MEDS: TIMOLOL 0.5% SOLN OPHTH 5 ML BOTTLE EACHEYE SCH ×2 (09:44→17:29)
[2017-08-17] MEDS: HYDROGEL DRESSING 90 GM TUBE TP SCH (09:45)
[2017-08-17] MEDS: MUPIROCIN OINT 2% 22 GM TUBE SCH ×2 (09:45→21:06)
[2017-08-17] MEDS: MEROPENEM 500 MG in IV NS 0.9% 50 ML IV SCH ×2 (10:08→23:51)
[2017-08-17] MEDS ORDERED: TPN/PPN PER PHARMACY IV PRN (10:30)
[2017-08-17] MEDS: ALBUMIN 25% 25 GM in PREMIX 1 EA IV PRN (15:14)
[2017-08-17 15:26] LABS: BASOPHILS # (AUTO) 0.1 /CMM (0.0-0.2); BASOPHILS % (AUTO) 0.2 % (0.0-2.0); EOSINOPHILS # (AUTO) 0.2 /CMM (0.0-0.7); EOSINOPHILS % (AUTO) 0.4 % (0.0-6.0); HEMATOCRIT 24 % (33-45); HEMOGLOBIN 7.9 g/dL (11.5-14.8); LYMPHOCYTES # (AUTO) 2.9 /CMM (0.8-4.8); LYMPHOCYTES % (AUTO) 7.3 % (20.0-44.0); MEAN CORPUSCULAR HEMOGLOBIN 31 PG (26.0-33.0); MEAN CORPUSCULAR HGB CONC 33 g/dl (31.0-36.0); MEAN CORPUSCULAR VOLUME 95 fL (82-100); MONOCYTES # (AUTO) 0.2 /CMM (0.1-1.30); MONOCYTES % (AUTO) 0.4 % (2.0-12.0); NEUTROPHILS # (AUTO) 37.1 /CMM (1.8-8.9); NEUTROPHILS % (AUTO) 91.7 % (43.0-81.0); PLATELET COUNT (AUTO) 351 /CMM (150-450); RDW COEFFICIENT OF VARIATION 17.9 (11.5-15.0); RED BLOOD CELL COUNT(AUTO) 2.54 MIL/uL (4.0-5.2)
[2017-08-17 15:28] LABS: WHITE BLOOD COUNT (AUTO) 40.5 K/uL (4.3-11.0)
[2017-08-17 15:55] LABS: LYMPHOCYTES % (MANUAL) 7 % (16-48); MONOCYTES % (MANUAL) 12 % (0-11.0); NEUTROPHILS % (MANUAL) 80 (42-76)
[2017-08-17] MEDS: NOREPINEPHRINE 16 MG in IV D5W 500 ML IV PRN (16:41)
[2017-08-17] MEDS: MVI ADULT 10ML VIAL = 1AMP 10 ML in IV 10% DEXTROSE 1,000 ML IV PRN (16:42)
[2017-08-17] MEDS: INSULIN REGULAR, HUMAN 100 UNIT/ML 3 ML VIAL SQ PRN (17:38)
[2017-08-17] MEDS: VANCOMYCIN 500 MG in IV D5W 100 ML IV PRN (18:14)
--- NOTE | 2017-08-17 18:15 | NUR ---
ICU/RN ENDING NOTES, DIALYSIS DONE, 2.5 LITERS OUT. VSS. POST HD VANCO HELD PER PHARMACY, TROUGH 21.
--- NOTE | 2017-08-17 19:01 | NUR ---
ICU/RN: ENDING NOTES,AM REPORT WILL BE ENDORSED TO NIGHT NURSE FOR CONTINUATION OF CARE. ALL NEEDS ATTENDED TO, SAFETY MEASURES TAKEN. PT ON VENT SETTINGS ORDERED BY MD. LEVO FOR BP SUPPORT, IV FLUIDS INFUSING ORDERED. POST HDM 2.5LITERS OUT, HELD VANCO PER PHARMACY. BED BATH GIVEN, TURNED AND REPOSITIONED. SAFETY MEASURES TAKEN, BED IN LOW POSITION, SIDE RIALS UP, CALL LIGHT WITHIN REACH.
--- NOTE | 2017-08-17 20:25 | NUR ---
received pt from day shift, lethargic, does not follow commands, SR, receiving levo at 10mcg, on the vent, lungs congested/diminished, weeping/pitting edema all extremities, GT to LIS, anuric, HD was today, v/s stable, no pain, pt turned and repositioned, family at the bedside.
--- NOTE | 2017-08-17 21:00 | NUR ---
PT RECEIVED ORALLY INTUBATED WITH 7.5 ETT SECURED AT 21CM AT THE LIP. TOLERATING NOTED VENT SETTINGS. SX'D FOR MOD AMT OF THK VALE SECRETIONS. PACKAGE LINE OPERATOR DONE AND ETT SECURE WITH ANCHOR FAST. VENT ALARMS CHECKED AND AUDIBLE. AMBU BAG AT BEDSIDE. VENT PLUGGED INTO RED OUTLET. WILL CONTINUE TO MONITOR.
[2017-08-17] MEDS: MIRTAZAPINE 15 MG TABLET PO SCH (21:04)
[2017-08-17] MEDS: SENNOSIDES 8.6 MG TABLET PO SCH (21:04)
[2017-08-17] MEDS: ATORVASTATIN 10 MG TABLET PO SCH (21:04)
[2017-08-17] MEDS: LATANOPROST EYE DROP 0.005% 2.5 ML BOTTLE EACHEYE SCH (21:07)
[2017-08-17] MEDS: MICAFUNGIN SODIUM 100 MG in IV NS 0.9% 100 ML IV SCH (21:09)
[2017-08-18] VITALS (82 sets, daily range): BP systolic 82–136; BP diastolic 36–75
--- NOTE | 2017-08-18 00:24 | NUR ---
pt is resting in the bed, on levo at 8mcg, lethargic, follows commands at times, v/s stable, no pain, pt turned and repositioned q2hrs.
[2017-08-18] MEDS: METOCLOPRAMIDE HCL 10 MG/2 ML VIAL IV SCH ×3 (01:44→17:26)
[2017-08-18] MEDS: NOREPINEPHRINE 16 MG in IV D5W 500 ML IV PRN ×2 (01:45→14:33)
[2017-08-18] MEDS: MVI ADULT 10ML VIAL = 1AMP 10 ML in IV 10% DEXTROSE 1,000 ML IV PRN ×2 (03:46→14:33)
--- NOTE | 2017-08-18 04:15 | NUR ---
pt is resting in the bed, no acute distress overnight, on levo at 8mcg, v/s stable, no pain, pt cleaned, changed and repositioned q2hrs.
[2017-08-18] MEDS: METRONIDAZOLE 500MG/ NS 100ML 500 MG in PREMIX 1 EA IV SCH ×2 (05:06→13:08)
[2017-08-18] MEDS: BLOOD SUGAR DIAGNOSTIC 1 EACH STRIP IN SCH ×4 (05:06→23:29)
[2017-08-18] MEDS: prednisoLONE ACET 1% OPHT DROP 5 ML BOTTLE LEFTEYE SCH ×3 (05:07→21:04)
[2017-08-18] MEDS: INSULIN REGULAR, HUMAN 100 UNIT/ML 3 ML VIAL SQ PRN ×3 (05:09→17:35)
[2017-08-18 05:19] LABS: HEMATOCRIT 22 % (33-45); HEMOGLOBIN 7.3 g/dL (11.5-14.8); LYMPHOCYTES # (AUTO) 2.1 /CMM (0.8-4.8); LYMPHOCYTES % (AUTO) 5.8 % (20.0-44.0); MEAN CORPUSCULAR HEMOGLOBIN 31 PG (26.0-33.0); MEAN CORPUSCULAR HGB CONC 33 g/dl (31.0-36.0); MEAN CORPUSCULAR VOLUME 94 fL (82-100); MONOCYTES # (AUTO) 1.1 /CMM (0.1-1.30); MONOCYTES % (AUTO) 3.1 % (2.0-12.0); NEUTROPHILS # (AUTO) 32.6 /CMM (1.8-8.9); NEUTROPHILS % (AUTO) 91.1 % (43.0-81.0); PLATELET COUNT (AUTO) 294 /CMM (150-450); RDW COEFFICIENT OF VARIATION 17.2 (11.5-15.0); RED BLOOD CELL COUNT(AUTO) 2.37 MIL/uL (4.0-5.2)
[2017-08-18 05:32] LABS: INR 1.54 (0.87-1.13)
[2017-08-18 05:43] LABS: CALCIUM, SERUM 7.8 mg/dL (8.5-10.1); CREATININE 2.2 mg/dL (0.6-1.3); POTASSIUM 3.5 mmol/L (3.5-5.1)
[2017-08-18 05:44] LABS: WHITE BLOOD COUNT (AUTO) 35.7 K/uL (4.3-11.0)
[2017-08-18 05:54] LABS: LYMPHOCYTES % (MANUAL) 5 % (16-48); MONOCYTES % (MANUAL) 4 % (0-11.0); NEUTROPHILS % (MANUAL) 91 (42-76)
[2017-08-18] MEDS: ATROPINE SULFATE OPHTH SOLN 15 ML BOTTLE EACHEYE SCH ×2 (06:03→17:31)
[2017-08-18] MEDS ORDERED: IOHEXOL 50 ML IV ONE (06:58)
[2017-08-18] MEDS ORDERED: LIDOCAINE 1% INJ 50 ML MDV IJ ONE (06:59)
[2017-08-18] MEDS ORDERED: ANESTHESIA TRAY IN PYXIS 1 EA TRAY MC ONE (06:59)
--- NOTE | 2017-08-18 07:00 | NUR ---
MOTORCYCLE MECHANIC-INITIAL NOTES RECEIVED PT ORALLY INTUBATED, ETT 7.5, 21 @ THE LIP. ON MECHANICAL VENT, SETTINGS ORDERED, RESPIRATIONS EVEN & UNLABORED, NO SOB OR DISTRESS NOTED. PT OFF SEDATION, AWAKE, OPENS EYES, RESPONDS TO PAINFUL STIMULI BUT DOES NOT FOLLOW COMMANDS. BEDSIDE MONITOR REVEALS SINUS RHYTHM. NGT PRESENT AND CONNECTED TO LIS. MARIPOSA PICC LINE RUNNING LEVOPHED @ 8 MCG/MIN AND IVF MVI @ 125 ML/HR. SAFETY MEASURES TAKEN: BED LOCKED AND IN LOW POSITION, SIDE RAILS UP X2, BED ALARM ON, WILL CONTINUE TO MONITOR.
--- NOTE | 2017-08-18 07:30 | NUR ---
YIELD IMPROVEMENT ENGINEER- PT TAKEN TO OR FOR IVC FILTER PLACEMENT BY OR STAFF.
--- NOTE | 2017-08-18 08:10 | NUR ---
BRAKE LINING DRILLER- PT RETURNED FROM OR POST IVC FILTER PLACEMENT. DRESSING TO LEFT GROIN CLEAN, DRY AND INTACT. PULSE WEAK BUT PALPABLE & PRESENT. VITAL SIGNS STABLE. WILL CONTINUE TO MONITOR.
[2017-08-18] MEDS: POTASSIUM CHLORIDE 20 MEQ POWDER PACKET GT SCH (08:37)
[2017-08-18] MEDS: MEGESTROL ACETATE SUSP 400 MG/10 ML UDC PO SCH ×2 (08:37→17:26)
[2017-08-18] MEDS: MIDODRINE HCL (5MG) 5 MG TABLET GT SCH ×2 (08:37→17:26)
[2017-08-18] MEDS: DOCUSATE SODIUM 100 MG CAPSULE PO SCH ×2 (08:37→17:00)
[2017-08-18] MEDS: MULTIVIT, IRON, MIN NO. 8, FA 1 TAB PO SCH (08:37)
[2017-08-18] MEDS: NEUTRA PHOS 1 POWD.PACKET PO SCH ×2 (08:37→17:26)
[2017-08-18] MEDS: PROSOURCE / PROSTAT (PYXIS) 30 ML UDC PO SCH (08:37)
[2017-08-18] MEDS: LACTOBACILLUS RHAMNOSUS GG 1 EACH CAP.SPRINK PO SCH ×2 (08:37→17:26)
[2017-08-18] MEDS: ZINC SULFATE 220 MG CAPSULE PO SCH (08:38)
[2017-08-18] MEDS: ASCORBIC ACID 500 MG TABLET PO SCH (08:38)
[2017-08-18] MEDS: FOLIC ACID 1 MG TABLET PO SCH (08:51)
[2017-08-18] MEDS: PANTOPRAZOLE 40 MG VIAL IV SCH (08:56)
[2017-08-18] MEDS: HYDROGEL DRESSING 90 GM TUBE TP SCH (08:57)
[2017-08-18] MEDS: MUPIROCIN OINT 2% 22 GM TUBE SCH ×2 (08:59→21:05)
[2017-08-18] MEDS: BRIMONIDINE TARTRATE OPHT SOLN 5 ML BOTTLE EACHEYE SCH ×2 (09:00→17:30)
[2017-08-18] MEDS: TIMOLOL 0.5% SOLN OPHTH 5 ML BOTTLE EACHEYE SCH ×2 (09:00→17:30)
[2017-08-18] MEDS: LORAZEPAM 1 MG TABLET PO SCH (10:28)
[2017-08-18] MEDS: MEROPENEM 500 MG in IV NS 0.9% 50 ML IV SCH ×2 (10:34→22:26)
--- NOTE | 2017-08-18 10:50 | NUR ---
LOG CUT OFF SAWYER- HD STARTED. HD NURSE AT BEDSIDE. PER DR. OGDEN, ADMINISTER EPOGEN WITH HD. ORDER PLACED. 1100- PT MORE AWAKE AND ABLE TO FOLLOW COMMANDS, ATTEMPTING TO REMOVE TUBES & LINES (G-TUBE AND HD TUBING). OBTAINED ORDER FOR BILATERAL SOFT WRIST RESTRAINTS. WILL CONTINUE TO MONITOR. 1200- HD COMPLETED, 500 ML OUT. VANCO TROUGH THIS AM WAS 16. WILL ADMINISTER VANCO PER PROTOCOL.
[2017-08-18 10:53] LABS: ABG BASE EXCESS 3.6 mmol/L; ABG OXYGEN SATURATION 95.2 % (92.0-98.5); ABG PCO2 45.6 mmHg (35.0-45.0); ABG PH 7.416 (7.350-7.450); ABG PO2 90.5 mmHg (75.0-100.0); AaDO2 55.3 mmHg; COHb 1.1 % (0.5-1.5); MetHb 0.3 % (0.0-1.5); O2Hb 93.9 % (94.0-97.0); SITE, ABG Left Radial; VENT MODE, BG nasal cannula
[2017-08-18] MEDS ORDERED: ALTEPLASE CATHFLO 2 MG/VIAL XX ONE (11:00)
[2017-08-18] MEDS: EPOETIN ALFA (10,000 UNIT) 10,000 UNIT/ML VIAL IV SCH (11:12)
[2017-08-18] MEDS: VANCOMYCIN 500 MG in IV D5W 100 ML IV PRN (14:59)
--- NOTE | 2017-08-18 20:21 | NUR ---
received pt from day shift, s/p IVC filter insertion, alert, follows simple commands, SR, receiving levo at 8mcg, on the vent, intubated, lungs congested/diminished, pitting/weeping edema throughout, GT to LIS some residual, anuric, HD was today, restraints on, v/s stable, no pain, pt turned and repositioned, family at the bedside.
[2017-08-18] MEDS: MICAFUNGIN SODIUM 100 MG in IV NS 0.9% 100 ML IV SCH (20:46)
--- NOTE | 2017-08-18 21:00 | NUR ---
PT RECEIVED ORALLY INTUBATED WITH 7.5 ETT SECURED AT 21CM AT THE LIP. TOLERATING NOTED VENT SETTINGS. SX'D FOR MOD AMT OF THK VALE SECRETIONS. PAVER DONE AND ETT SECURE WITH ANCHOR FAST. VENT ALARMS CHECKED AND AUDIBLE. AMBU BAG AT BEDSIDE. VENT PLUGGED INTO RED OUTLET. WILL CONTINUE TO MONITOR
[2017-08-18] MEDS: ATORVASTATIN 10 MG TABLET PO SCH (21:03)
[2017-08-18] MEDS: SENNOSIDES 8.6 MG TABLET PO SCH (21:03)
[2017-08-18] MEDS: MIRTAZAPINE 15 MG TABLET PO SCH (21:03)
[2017-08-18] MEDS: LATANOPROST EYE DROP 0.005% 2.5 ML BOTTLE EACHEYE SCH (21:05)
[2017-08-19] VITALS (86 sets, daily range): BP systolic 62–178; BP diastolic 30–135
--- NOTE | 2017-08-19 00:12 | NUR ---
pt is resting in the bed, on levo at 8mcg, v/s stable, no pain, pt turned and repositioned q2hrs.
[2017-08-19] MEDS: METOCLOPRAMIDE HCL 10 MG/2 ML VIAL IV SCH ×3 (02:13→17:31)
[2017-08-19] MEDS: MVI ADULT 10ML VIAL = 1AMP 10 ML in IV 10% DEXTROSE 1,000 ML IV PRN ×2 (02:13→11:40)
--- NOTE | 2017-08-19 04:13 | NUR ---
pt is resting in the bed, no acute distress overnight, alert, follows simple commands, SR, on levo at 8mcg, v/s stable, no pain, pt cleaned, changed and repositioned q2hrs.
[2017-08-19 05:17] LABS: CALCIUM, SERUM 7.4 mg/dL (8.5-10.1); CREATININE 2.1 mg/dL (0.6-1.3); POTASSIUM 3.1 mmol/L (3.5-5.1)
[2017-08-19] MEDS: prednisoLONE ACET 1% OPHT DROP 5 ML BOTTLE LEFTEYE SCH ×3 (05:29→21:48)
[2017-08-19] MEDS: INSULIN REGULAR, HUMAN 100 UNIT/ML 3 ML VIAL SQ PRN ×2 (05:56→12:40)
[2017-08-19] MEDS: BLOOD SUGAR DIAGNOSTIC 1 EACH STRIP IN SCH ×3 (05:57→17:36)
[2017-08-19] MEDS: ATROPINE SULFATE OPHTH SOLN 15 ML BOTTLE EACHEYE SCH ×2 (05:58→16:24)
--- NOTE | 2017-08-19 07:30 | NUR ---
RN INITIAL NOTES RECEIVED PT RESTING IN BED INTUBATED WITH VENT SETTINGS TOLERATED WELL.NAD NOTED. MARIPOSA PICC LINE SECURED WITH INTACT DRESSING AND IVF INFUSING WELL; ONGOING LEVOPHED DIRECTED. NOTED WITH EDEMA AND WEEPING OF BUE AND BLE; REDNESS AND PURPLISH SKIN DISCOLORATION OF BUE NOTED. SACRAL AREA NOTED WITH SKIN BREAKDOWN, MEPILEX IN PLACE. GT REMAINS CLAMPED; NO RESIDUALS NOTED. REMAINS ON ISOLATION PRECAUTION. POSITIONED FOR COMFORT WITH HOB KEPT ELEVATED. SINUS RHYTHM ON THE MONITOR. WITH NACHO SOFT WRIST RESTRAINTS; SKIN AND CIRCULATION WNL.
[2017-08-19] MEDS: HYDROGEL DRESSING 90 GM TUBE TP SCH (08:33)
[2017-08-19] MEDS: Z GUARD REMEDY 2 OZ OINT TP PRN (08:33)
[2017-08-19] MEDS: MUPIROCIN OINT 2% 22 GM TUBE SCH ×2 (08:34→21:53)
[2017-08-19] MEDS: TIMOLOL 0.5% SOLN OPHTH 5 ML BOTTLE EACHEYE SCH ×2 (08:35→16:24)
[2017-08-19] MEDS: BRIMONIDINE TARTRATE OPHT SOLN 5 ML BOTTLE EACHEYE SCH ×2 (08:35→16:24)
[2017-08-19] MEDS: NEUTRA PHOS 1 POWD.PACKET PO SCH ×2 (09:56→16:20)
[2017-08-19] MEDS: PANTOPRAZOLE 40 MG VIAL IV SCH (09:56)
[2017-08-19] MEDS: ASCORBIC ACID 500 MG TABLET PO SCH (09:57)
[2017-08-19] MEDS: MEGESTROL ACETATE SUSP 400 MG/10 ML UDC PO SCH ×2 (09:57→16:20)
[2017-08-19] MEDS: LACTOBACILLUS RHAMNOSUS GG 1 EACH CAP.SPRINK PO SCH ×2 (09:57→16:21)
[2017-08-19] MEDS: POTASSIUM CHLORIDE 20 MEQ POWDER PACKET GT SCH (09:57)
[2017-08-19] MEDS: FOLIC ACID 1 MG TABLET PO SCH (09:58)
[2017-08-19] MEDS: ZINC SULFATE 220 MG CAPSULE PO SCH (09:58)
[2017-08-19] MEDS: MULTIVIT, IRON, MIN NO. 8, FA 1 TAB PO SCH (09:58)
[2017-08-19] MEDS: MIDODRINE HCL (5MG) 5 MG TABLET GT SCH ×2 (09:58→16:21)
[2017-08-19] MEDS: PROSOURCE / PROSTAT (PYXIS) 30 ML UDC PO SCH (10:13)
[2017-08-19] MEDS: DOCUSATE SODIUM 100 MG CAPSULE PO SCH ×2 (10:13→16:21)
[2017-08-19 10:39] LABS: BASOPHILS # (AUTO) 0.1 /CMM (0.0-0.2); BASOPHILS % (AUTO) 0.4 % (0.0-2.0); HEMATOCRIT 22 % (33-45); HEMOGLOBIN 7.2 g/dL (11.5-14.8); LYMPHOCYTES # (AUTO) 2.9 /CMM (0.8-4.8); LYMPHOCYTES % (AUTO) 9.2 % (20.0-44.0); MEAN CORPUSCULAR HEMOGLOBIN 31 PG (26.0-33.0); MEAN CORPUSCULAR HGB CONC 32 g/dl (31.0-36.0); MEAN CORPUSCULAR VOLUME 95 fL (82-100); MONOCYTES # (AUTO) 0.9 /CMM (0.1-1.30); MONOCYTES % (AUTO) 2.9 % (2.0-12.0); NEUTROPHILS # (AUTO) 27.7 /CMM (1.8-8.9); NEUTROPHILS % (AUTO) 87.5 % (43.0-81.0); PLATELET COUNT (AUTO) 241 /CMM (150-450); RDW COEFFICIENT OF VARIATION 17.7 (11.5-15.0); RED BLOOD CELL COUNT(AUTO) 2.34 MIL/uL (4.0-5.2)
[2017-08-19 10:44] LABS: WHITE BLOOD COUNT (AUTO) 31.7 K/uL (4.3-11.0)
--- NOTE | 2017-08-19 10:49 | NUR ---
rn notes Dr Calvillo aware re latest wbc= 31.7; nno given
[2017-08-19 10:56] LABS: BAND % (MANUAL) 1 % (0.0-5.0); EOSINOPHILS % (MANUAL) 1 % (0-4); LYMPHOCYTES % (MANUAL) 4 % (16-48); MONOCYTES % (MANUAL) 4 % (0-11.0); NEUTROPHILS % (MANUAL) 90 (42-76)
--- NOTE | 2017-08-19 11:21 | NUR ---
RT PT RECEIVED INTUBATED WITH 7.5 ETT SECURED AT 21CM AT THE LIP. CREW ATTENDANT DONE. BILATERAL BREATH SOUNDS ON AUSCULTATION. SUCTIONED SMALL AMOUNTS OF THICK, WHITE/YELLOW SECRETIONS. VENT PLUGGED INTO RED OUTLET. AMBU BAG AT BEDSIDE. ALARMS ON AND WORKING PROPERLY. NO SIGNS OF DISTRESS NOTED AT THIS TIME. WILL CONTINUE TO MONITOR THE PATIENT FOR ANY CHANGES. Addendum: 08/19/17 at 1125 by DEWAYNE HARO RT Amended: Links added.
[2017-08-19] MEDS: MEROPENEM 500 MG in IV NS 0.9% 50 ML IV SCH ×2 (11:29→22:29)
--- NOTE | 2017-08-19 12:57 | NUR ---
RN NOTES PT SEEN AND ASSESSED BY DR NGUYEN; NNO MADE. PTS DTR AT BS AND INFORMED BY MD LENY BOWER
--- NOTE | 2017-08-19 14:00 | NUR ---
RN NOTES BEDSIDE PT CARE DONE; SKIN CARE DONE ; TURNED AND REPOSITIONED.
[2017-08-19] MEDS: NOREPINEPHRINE 16 MG in IV D5W 500 ML IV PRN (14:20)
[2017-08-19] MEDS: EPOETIN ALFA (10,000 UNIT) 10,000 UNIT/ML VIAL IV SCH (16:23)
--- NOTE | 2017-08-19 18:50 | NUR ---
RN CLOSING NOTES PT AWAKE WITH NAD. REMAINS SR ON THE MONITOR. LEVOPHED INFUSING @ 10 MICS, BP REMAINS STABLE. TURNED AND REPOSITIONED DURING THE SHIFT. BSR RELEASED, ROM DONE; SKIN AND CIRCULATION WNL. WILL ENDORSE TO NEXT SHIFT RN FOR CONTINUITY OF CARE IN STABLE CONDITION
--- NOTE | 2017-08-19 20:00 | NUR ---
TURBINE INSPECTOR NOTES RECEIVED PT IN BED, AWAKE. A/O X2-3 TO NAME, FOLLOWS COMMANDS, THAI SPEAKING ONLY. TELE READS SR. ON O2 VIA ETT 7.5, 21 CM AT LIP, AT ORDERED SETTINGS, TOLERATING WELL. GT IN PLACE AND CLAMPED, NO RESIDUAL. PT HAS HX OF ESRD WITH HD AND IS ANURIC. MARIPOSA PICC IN PLACE, RUNNING LEVOPHED AT 10 MCG/MIN AND MULTI VITAMIN IVF AT 125 ML/HR. PT IS EXTREMELY EDEMATOUS GENERALIZED. TURNED AND REPOSITIONED Q2H, EXTREMITIES OFFLOADED.
[2017-08-19] MEDS: LATANOPROST EYE DROP 0.005% 2.5 ML BOTTLE EACHEYE SCH (21:48)
[2017-08-19] MEDS: MICAFUNGIN SODIUM 100 MG in IV NS 0.9% 100 ML IV SCH (21:53)
[2017-08-19] MEDS: SENNOSIDES 8.6 MG TABLET PO SCH (21:53)
[2017-08-19] MEDS: ATORVASTATIN 10 MG TABLET PO SCH (21:53)
[2017-08-19] MEDS: MIRTAZAPINE 15 MG TABLET PO SCH (21:53)
[2017-08-20] VITALS (71 sets, daily range): BP systolic 89–167; BP diastolic 48–75
[2017-08-20] MEDS: HYDROCODONE/APAP 5/325MG 1 EACH TABLET PO PRN (00:40)
[2017-08-20] MEDS: BLOOD SUGAR DIAGNOSTIC 1 EACH STRIP IN SCH ×4 (00:40→17:20)
[2017-08-20] MEDS: INSULIN REGULAR, HUMAN 100 UNIT/ML 3 ML VIAL SQ PRN ×4 (00:44→17:19)
[2017-08-20] MEDS: METOCLOPRAMIDE HCL 10 MG/2 ML VIAL IV SCH ×3 (01:02→17:18)
[2017-08-20] MEDS: MVI ADULT 10ML VIAL = 1AMP 10 ML in IV 10% DEXTROSE 1,000 ML IV PRN ×3 (03:12→21:18)
[2017-08-20] MEDS: ALBUMIN 25% 25 GM in PREMIX 1 EA IV PRN (04:53)
[2017-08-20] MEDS: prednisoLONE ACET 1% OPHT DROP 5 ML BOTTLE LEFTEYE SCH ×3 (05:25→21:17)
[2017-08-20 05:29] LABS: BASOPHILS % (AUTO) 0.1 % (0.0-2.0); EOSINOPHILS % (AUTO) 0.1 % (0.0-6.0); LYMPHOCYTES # (AUTO) 2.2 /CMM (0.8-4.8); LYMPHOCYTES % (AUTO) 9.6 % (20.0-44.0); MEAN CORPUSCULAR HEMOGLOBIN 32 PG (26.0-33.0); MEAN CORPUSCULAR HGB CONC 34 g/dl (31.0-36.0); MEAN CORPUSCULAR VOLUME 96 fL (82-100); MONOCYTES % (AUTO) 4.3 % (2.0-12.0); NEUTROPHILS # (AUTO) 20.1 /CMM (1.8-8.9); NEUTROPHILS % (AUTO) 85.9 % (43.0-81.0); PLATELET COUNT (AUTO) 200 /CMM (150-450); RDW COEFFICIENT OF VARIATION 22.7 (11.5-15.0); RED BLOOD CELL COUNT(AUTO) 2.05 MIL/uL (4.0-5.2); WHITE BLOOD COUNT (AUTO) 23.4 K/uL (4.3-11.0)
[2017-08-20 05:35] LABS: CALCIUM, SERUM 7.4 mg/dL (8.5-10.1); CREATININE 1.9 mg/dL (0.6-1.3); MAGNESIUM 1.4 mg/dL (1.8-2.4); PHOSPHORUS 4.3 mg/dL (2.5-4.9); POTASSIUM 3.9 mmol/L (3.5-5.1)
[2017-08-20 05:54] LABS: HEMATOCRIT 20 % (33-45); HEMOGLOBIN 6.6 g/dL (11.5-14.8)
--- NOTE | 2017-08-20 06:11 | NUR ---
PATIENT RECEIVED ON [facility] VENT WITH SETTINGS ORDERED BY MD CECILY WELL. VENT ALARMS CHECKED & AUDIBLE THROUGH OUT ICU UNIT. CUFF PRESSURE CHECKED RIBBON BLOCKMAKER. PT SUCTIONED FOR MOD AMOUNT OF SECRETIONS. B/S DIMINISHED. PATIENT APPEARS COMFORTABLE. AMBU BAG AT [facility]. MECHANICAL VENTILATOR PLUGGED INTO RED OUTLET. WILL CONTINUE TO MONITOR.
[2017-08-20] MEDS: ATROPINE SULFATE OPHTH SOLN 15 ML BOTTLE EACHEYE SCH ×2 (06:13→16:33)
[2017-08-20 06:22] LABS: BAND % (MANUAL) 1 % (0.0-5.0); EOSINOPHILS % (MANUAL) 1 % (0-4); LYMPHOCYTES % (MANUAL) 6 % (16-48); METAMYELOCYTES % 1 % (0-0); MONOCYTES % (MANUAL) 4 % (0-11.0); NEUTROPHILS % (MANUAL) 87 (42-76)
--- NOTE | 2017-08-20 07:44 | NUR ---
Intubated pt received on mechanical vent. 7.5 ETT secured at 21cm@ the lip. Vent is plugged into a red outlet, alarms are set and audible, and BVM is at bedside. Addendum: 08/20/17 at 0746 by GABRIELLE THOMAS RT Amended: Links added.
--- NOTE | 2017-08-20 07:55 | NUR ---
RN INITIAL NOTES RECEIVED PT AWAKE IN BED WITH NO DISTRESS. ET TUBE IN PLACE, MECH VENT SETTINGS TOLERATED WELL. ONGOING LEVOPHED @ 8 MCG; BP WNL. NACHO SOFT WRIST RESTRAINTS IN PLACE; SKIN AND CIRCULATION WNL.NOTED WITH BUE WEEPING EDEMA AND SKIN DISCOLORATION. GT REMAINS CLAMPED. SAFETY AND COMOFRT ENSURED WILL MONITOR
[2017-08-20] MEDS: HYDROGEL DRESSING 90 GM TUBE TP SCH (08:43)
[2017-08-20] MEDS: Z GUARD REMEDY 2 OZ OINT TP PRN (08:43)
[2017-08-20] MEDS: TIMOLOL 0.5% SOLN OPHTH 5 ML BOTTLE EACHEYE SCH ×2 (08:44→16:33)
[2017-08-20] MEDS: BRIMONIDINE TARTRATE OPHT SOLN 5 ML BOTTLE EACHEYE SCH ×2 (08:45→16:34)
[2017-08-20] MEDS: PANTOPRAZOLE 40 MG VIAL IV SCH (08:46)
[2017-08-20] MEDS: PROSOURCE / PROSTAT (PYXIS) 30 ML UDC PO SCH (08:46)
[2017-08-20] MEDS: NEUTRA PHOS 1 POWD.PACKET PO SCH ×2 (08:46→16:29)
[2017-08-20] MEDS: MEGESTROL ACETATE SUSP 400 MG/10 ML UDC PO SCH ×2 (08:46→16:29)
[2017-08-20] MEDS: ASCORBIC ACID 500 MG TABLET PO SCH (08:47)
[2017-08-20] MEDS: MULTIVIT, IRON, MIN NO. 8, FA 1 TAB PO SCH (08:47)
[2017-08-20] MEDS: DOCUSATE SODIUM 100 MG CAPSULE PO SCH ×2 (08:47→16:29)
[2017-08-20] MEDS: FOLIC ACID 1 MG TABLET PO SCH (08:47)
[2017-08-20] MEDS: LACTOBACILLUS RHAMNOSUS GG 1 EACH CAP.SPRINK PO SCH ×2 (08:47→16:29)
[2017-08-20] MEDS: MIDODRINE HCL (5MG) 5 MG TABLET GT SCH ×2 (08:48→16:34)
[2017-08-20] MEDS: MUPIROCIN OINT 2% 22 GM TUBE SCH ×2 (08:49→21:16)
[2017-08-20] MEDS: ZINC SULFATE 220 MG CAPSULE PO SCH (08:59)
[2017-08-20] MEDS: POTASSIUM CHLORIDE 20 MEQ POWDER PACKET GT SCH (08:59)
--- NOTE | 2017-08-20 09:00 | NUR ---
RN NOTES PT SEEN AND ASSESSED BY DR SMITH; INFORMED MD RE HGB 6.6; NO ACTIVE BLEEDING NOTED. MD WITH VERBAL ORDERS TO TRANSFUSE ONE UNIT OF PRBC TODAY. PT WITH INFORMED CONSENT ALREADY ON THE CHART (08/12) AND VERIFIED WITH INSTRUMENT OPERATOR VANDANA RE VALIDITY.
[2017-08-20] MEDS: LORAZEPAM 1 MG TABLET PO SCH (11:01)
[2017-08-20] MEDS: MEROPENEM 500 MG in IV NS 0.9% 50 ML IV SCH ×2 (11:01→22:32)
[2017-08-20 11:56] LABS: ABG BASE EXCESS -4.4 mmol/L; ABG OXYGEN SATURATION 99.2 % (92.0-98.5); ABG PCO2 23.9 mmHg (35.0-45.0); ABG PH 7.499 (7.350-7.450); ABG PO2 172.6 mmHg (75.0-100.0); COHb 1.5 % (0.5-1.5); MetHb 0.4 % (0.0-1.5); O2Hb 97.3 % (94.0-97.0); SITE, ABG Right Radial; VENT MODE, BG AC 16 450 50% +5
--- NOTE | 2017-08-20 12:08 | NUR ---
Pt FiO2 changed to 40% and Vt to 425 per MD order. Addendum: 08/20/17 at 1210 by GABRIELLE PEREIRA Amended: Links added.
[2017-08-20] MEDS: EPOETIN ALFA (10,000 UNIT) 10,000 UNIT/ML VIAL IV SCH (16:24)
[2017-08-20] MEDS: NOREPINEPHRINE 16 MG in IV D5W 500 ML IV PRN (16:25)
--- NOTE | 2017-08-20 19:01 | NUR ---
RN CLOSING NOTES PT RESTING COMFORTABLY; NAD. ORAL CARE DONE; TURNED AND REPOSITIONED DURING THE SHIFT WITH HOB KEPT ELEVATED. PRBC INFUSING WELL, NO A/R NOTED; NO CLOTS AND NO LEAKING NOTED. PICC LINE IN PLACE AND SECURED WITH CLEAN DRESSING; tpn INFUSING AND LEVOPHED ON GOING @ 8 MICS ; NO A/R NOTED; VITALS WNL. ENDORSED TO NEXT SHIFT RN FOR CONTINUITY OF CARE IN STABLE CONDITION
--- NOTE | 2017-08-20 20:00 | NUR ---
FILM SOUND ENGINEER NOTES RECEIVED PT IN BED, AWAKE. A/O X1-2 TO NAME AND POSSIBLY LOCATION, FOLLOWS COMMANDS, CITIZEN OF [place] SPEAKING ONLY. TELE READS SR. ON O2 VIA ETT 7.5, 21 CM AT LIP, AT ORDERED SETTINGS, TOLERATING WELL. GT IN PLACE AND CLAMPED, NO RESIDUAL. PT HAS HX OF ESRD WITH HD AND IS ANURIC. MARIP[place]A PICC IN PLACE, RUNNING LEVOPHED AT 8 MCG/MIN AND MULTI VITAMIN IVF AT 125 ML/HR. PT IS EXTREMELY EDEMATOUS GENERALIZED. TURNED AND REPOSITIONED Q2H, EXTREMITIES OFFLOADED.
[2017-08-20] MEDS: SENNOSIDES 8.6 MG TABLET PO SCH (21:15)
[2017-08-20] MEDS: MICAFUNGIN SODIUM 100 MG in IV NS 0.9% 100 ML IV SCH (21:15)
[2017-08-20] MEDS: MIRTAZAPINE 15 MG TABLET PO SCH (21:15)
[2017-08-20] MEDS: ATORVASTATIN 10 MG TABLET PO SCH (21:16)
[2017-08-20] MEDS: LATANOPROST EYE DROP 0.005% 2.5 ML BOTTLE EACHEYE SCH (21:17)
[2017-08-20] MEDS: VANCOMYCIN 500 MG in IV D5W 100 ML IV PRN (21:41)
[2017-08-21] VITALS (92 sets, daily range): BP systolic 66–157; BP diastolic 41–92
[2017-08-21] MEDS: BLOOD SUGAR DIAGNOSTIC 1 EACH STRIP IN SCH ×4 (00:46→18:11)
[2017-08-21] MEDS: INSULIN REGULAR, HUMAN 100 UNIT/ML 3 ML VIAL SQ PRN ×4 (00:49→18:33)
[2017-08-21] MEDS: METOCLOPRAMIDE HCL 10 MG/2 ML VIAL IV SCH ×3 (01:02→18:04)
[2017-08-21] MEDS: HYDROCODONE/APAP 5/325MG 1 EACH TABLET PO PRN (02:15)
--- NOTE | 2017-08-21 04:37 | NUR ---
RT NOTES PATIENT RECEIVED WITH ETT ON [facility] VENT NOTED SETTINGS ORDERED BY MD. VENT CECILY WELL. VENT ALARMS CHECKED & AUDIBLE THROUGH OUT ICU UNIT. CUFF PRESSURE CHECKED STAFF DEVELOPER. SUCTIONED Q2 & PRN FOR MOD AMOUNT OF SEMI THICK SECRETIONS. B/S DIMINISHED BILAT. PATIENT APPEARS COMFORTABLE. AMBU BAG AT [facility]. MECHANICAL VENTILATOR PLUGGED INTO RED OUTLET. WILL CONTINUE TO MONITOR. Addendum: 08/21/17 at 0438 by SHELL HERNÁNDEZ RT Amended: Links added.
[2017-08-21 04:59] LABS: EOSINOPHILS # (AUTO) 0.4 /CMM (0.0-0.7); EOSINOPHILS % (AUTO) 1.3 % (0.0-6.0); HEMATOCRIT 28 % (33-45); HEMOGLOBIN 9.2 g/dL (11.5-14.8); LYMPHOCYTES # (AUTO) 2.1 /CMM (0.8-4.8); LYMPHOCYTES % (AUTO) 7.3 % (20.0-44.0); MEAN CORPUSCULAR HEMOGLOBIN 30 PG (26.0-33.0); MEAN CORPUSCULAR HGB CONC 34 g/dl (31.0-36.0); MEAN CORPUSCULAR VOLUME 91 fL (82-100); MONOCYTES # (AUTO) 1.1 /CMM (0.1-1.30); NEUTROPHILS # (AUTO) 24.7 /CMM (1.8-8.9); NEUTROPHILS % (AUTO) 87.4 % (43.0-81.0); PLATELET COUNT (AUTO) 147 /CMM (150-450); RDW COEFFICIENT OF VARIATION 18.4 (11.5-15.0); RED BLOOD CELL COUNT(AUTO) 3.04 MIL/uL (4.0-5.2); WHITE BLOOD COUNT (AUTO) 28.2 K/uL (4.3-11.0)
[2017-08-21 05:14] LABS: CALCIUM, SERUM 7.5 mg/dL (8.5-10.1); MAGNESIUM 1.3 mg/dL (1.8-2.4); PHOSPHORUS 4.6 mg/dL (2.5-4.9); POTASSIUM 4.2 mmol/L (3.5-5.1)
[2017-08-21 05:49] LABS: BAND % (MANUAL) 1 % (0.0-5.0); LYMPHOCYTES % (MANUAL) 8 % (16-48); MONOCYTES % (MANUAL) 5 % (0-11.0); NEUTROPHILS % (MANUAL) 86 (42-76)
--- NOTE | 2017-08-21 06:30 | NUR ---
PLAYERS ASSISTANT NOTES CRITICAL LAB: Na 120. DR JONATHAN MART.
[2017-08-21] MEDS: ATROPINE SULFATE OPHTH SOLN 15 ML BOTTLE EACHEYE SCH ×2 (06:52→16:25)
[2017-08-21] MEDS: prednisoLONE ACET 1% OPHT DROP 5 ML BOTTLE LEFTEYE SCH ×3 (06:52→21:18)
--- NOTE | 2017-08-21 06:57 | NUR ---
REAL ESTATE COORDINATOR NOTES NO CALLBACK FROM DR CASTILLO. PAGED SECOND TIME.
--- NOTE | 2017-08-21 07:15 | NUR ---
GLASS SCIENCE ENGINEER NOTES CALLBACK RECEIVED FROM DR CASTILLO, MADE AWARE OF Na 120, NO NEW ORDERS RECEIVED.
--- NOTE | 2017-08-21 08:02 | NUR ---
RT PATIENT REC'D ORALLY INTUBATED ON [facility] VENT WITH SETTINGS SET BY MD CECILY ANDRADE. VENT ALARMS CHECKED+ AUDIBLE. CUFF PRESSURE CHECKED AGENCY APPOINTMENTS SUPERVISOR. SX'D WITH SMALL AMT VALE SEMITHICK SECRETIONS. B/S DIM. AMBU BAG AT HOB. CONT CURRENT PLAN OF RESP CARE. Addendum: 08/21/17 at 1355 by DIANE NARANJO RT Amended: Links added.
[2017-08-21] MEDS: MVI ADULT 10ML VIAL = 1AMP 10 ML in IV 10% DEXTROSE 1,000 ML IV PRN ×2 (08:03→18:53)
[2017-08-21] MEDS: ASCORBIC ACID 500 MG TABLET PO SCH (08:45)
[2017-08-21] MEDS: POTASSIUM CHLORIDE 20 MEQ POWDER PACKET GT SCH (08:45)
[2017-08-21] MEDS: NEUTRA PHOS 1 POWD.PACKET PO SCH ×2 (08:45→16:22)
[2017-08-21] MEDS: MIDODRINE HCL (5MG) 5 MG TABLET GT SCH ×2 (08:45→16:16)
[2017-08-21] MEDS: PROSOURCE / PROSTAT (PYXIS) 30 ML UDC PO SCH (08:45)
[2017-08-21] MEDS: MULTIVIT, IRON, MIN NO. 8, FA 1 TAB PO SCH (08:45)
[2017-08-21] MEDS: LACTOBACILLUS RHAMNOSUS GG 1 EACH CAP.SPRINK PO SCH ×2 (08:45→16:22)
[2017-08-21] MEDS: DOCUSATE SODIUM 100 MG CAPSULE PO SCH ×2 (08:46→16:16)
[2017-08-21] MEDS: PANTOPRAZOLE 40 MG VIAL IV SCH (08:46)
[2017-08-21] MEDS: FOLIC ACID 1 MG TABLET PO SCH (08:46)
[2017-08-21] MEDS: MUPIROCIN OINT 2% 22 GM TUBE SCH ×2 (08:46→21:19)
[2017-08-21] MEDS: HYDROGEL DRESSING 90 GM TUBE TP SCH (08:46)
[2017-08-21] MEDS: ZINC SULFATE 220 MG CAPSULE PO SCH (08:46)
[2017-08-21] MEDS: BRIMONIDINE TARTRATE OPHT SOLN 5 ML BOTTLE EACHEYE SCH ×2 (08:47→16:24)
[2017-08-21] MEDS: TIMOLOL 0.5% SOLN OPHTH 5 ML BOTTLE EACHEYE SCH ×2 (08:47→16:24)
[2017-08-21] MEDS: MEGESTROL ACETATE SUSP 400 MG/10 ML UDC PO SCH ×2 (08:48→16:22)
--- NOTE | 2017-08-21 09:48 | NUR ---
DR. OGDEN ON THE UNIT NOTIFIED OF SODIUM LEVEL AT 120, SHE ORDERS FOR STAT BMP REDRAW PERIPHERAL STICK. ORDERS PLACED. ALSO NOTIFIED HER PT IS NPO XMEDS FOR ABOUT 10 DAYS NOW AND IS ON HIGH RATE IVF (MVI IN D10 AT 125ML/H), SHE STATES THAT PT HAD HIGH RESIDUALS AND ASPIRATED AND THATS WHY SHE WAS INTUBATED, BUT ORDERS TO RESTART TF AT LOW RATE AND CHECK RESIDUALS OFTEN FOR ASPIRATION PRECUATION. ONCE GOAL RATE IS ACHIEVED 30ML/HR (PER DIETARY, OKAYED BY DR OGDEN), THEN THE MVI IVF CAN BE DISCONTINUED. MISC ORDER PLACED SHE STATES THAT IF THE SODIUM LEVEL REDRAW IS LOW, NOTIFY HER AND SHE WILL DETERMINE IF PT WILL HAVE HD.
[2017-08-21] MEDS: MEROPENEM 500 MG in IV NS 0.9% 50 ML IV SCH (10:38)
[2017-08-21] MEDS: Magnesium 1GM/D5W 100ML PREMIX 100 ML IV SCH ×3 (10:39→12:43)
[2017-08-21 11:06] LABS: CALCIUM, SERUM 7.2 mg/dL (8.5-10.1); CREATININE 1.9 mg/dL (0.6-1.3); POTASSIUM 4.9 mmol/L (3.5-5.1)
[2017-08-21] MEDS: EPOETIN ALFA (10,000 UNIT) 10,000 UNIT/ML VIAL IV SCH (12:21)
[2017-08-21] MEDS: NOREPINEPHRINE 16 MG in IV D5W 500 ML IV PRN (12:42)
[2017-08-21] MEDS: RENAL NOVASOURCE 1,000 ML BOTTLE GT PRN (14:16)
[2017-08-21] MEDS: LEVOFLOXACIN 750 MG /D5W 150ML 750 MG in PREMIX 1 EA IV SCH (14:31)
--- NOTE | 2017-08-21 15:48 | NUR ---
HD NURSE IN FOR TREATMENT.
--- NOTE | 2017-08-21 17:30 | NUR ---
HD COMPLETE 3 LITERS OUT.
--- NOTE | 2017-08-21 19:30 | NUR ---
FORKLIFT TECHNICIAN RCD PT W/DX SEPSIS, UTI, RESP FAIL; PT IS LETHARGIC; DOES NOT FOLLOW COMMANDS; INTUBATED 7.5 @ 21 W/VENT SETTINGS AC 16 425 30% +5; PT HAS THICK WHITE SECRETIONS. NSR 80s ON MONITOR. ON LEVOPHED AT 4 MCG/MIN FOR BP SUPPORT; TITRATE ACCORDINGLY. PT IS ANURIC. MULTIPLE SKIN ISSUES; ALL DRESSING C/D/I. NPO AT THIS TIME D/T UNABLE TO TOLERATE TUBE FEEDING WITH HIGH RESIDUALS NOTED ON PREVIOUS SHIFT. MARIPOSA MIDLINE INFUSING MVI @ 125 ML/HR. PLAN FOR HD CATHETER PLACEMENT TOMORROW. PT TO REMAIN NPO.
--- NOTE | 2017-08-21 20:00 | NUR ---
WOOD FENCE INSTALLER BP 117/58 LEVOPHED DECREASED TO 3 MCG/MIN. CONTINUE TO TITRATE NEEDED.
--- NOTE | 2017-08-21 20:00 | NUR ---
CEMETERY LABORER SISTER AT BEDSIDE VISITING.
[2017-08-21] MEDS: LATANOPROST EYE DROP 0.005% 2.5 ML BOTTLE EACHEYE SCH (21:20)
[2017-08-21] MEDS: ATORVASTATIN 10 MG TABLET PO SCH (21:21)
[2017-08-21] MEDS: MIRTAZAPINE 15 MG TABLET PO SCH (21:22)
[2017-08-21] MEDS: SENNOSIDES 8.6 MG TABLET PO SCH (21:22)
--- NOTE | 2017-08-21 22:00 | NUR ---
RESIN PAINTER BP 101/50 LEVOPHED DECREASED TO 2 MCG/MIN. CONTINUE TO TITRATE NEEDED.
--- NOTE | 2017-08-21 23:00 | NUR ---
THREAD DRAWER BP 127/62 LEVOPHED DECREASED TO 1 MCG/MIN. CONTINUE TO TITRATE NEEDED.
[2017-08-22] VITALS (88 sets, daily range): BP systolic 79–138; BP diastolic 39–75
[2017-08-22] MEDS: BLOOD SUGAR DIAGNOSTIC 1 EACH STRIP IN SCH ×5 (00:17→23:29)
[2017-08-22] MEDS: INSULIN REGULAR, HUMAN 100 UNIT/ML 3 ML VIAL SQ PRN ×4 (00:19→23:26)
[2017-08-22] MEDS: METOCLOPRAMIDE HCL 10 MG/2 ML VIAL IV SCH ×3 (02:19→17:19)
[2017-08-22] MEDS: MVI ADULT 10ML VIAL = 1AMP 10 ML in IV 10% DEXTROSE 1,000 ML IV PRN ×2 (03:19→16:03)
[2017-08-22 05:20] LABS: HEMATOCRIT 27 % (33-45); HEMOGLOBIN 8.9 g/dL (11.5-14.8); LYMPHOCYTES % (AUTO) 7.7 % (20.0-44.0); MEAN CORPUSCULAR HEMOGLOBIN 30 PG (26.0-33.0); MEAN CORPUSCULAR HGB CONC 33 g/dl (31.0-36.0); MEAN CORPUSCULAR VOLUME 91 fL (82-100); MONOCYTES % (AUTO) 3.9 % (2.0-12.0); NEUTROPHILS # (AUTO) 22.7 /CMM (1.8-8.9); NEUTROPHILS % (AUTO) 88.4 % (43.0-81.0); PLATELET COUNT (AUTO) 120 /CMM (150-450); RDW COEFFICIENT OF VARIATION 18.9 (11.5-15.0); RED BLOOD CELL COUNT(AUTO) 2.93 MIL/uL (4.0-5.2); WHITE BLOOD COUNT (AUTO) 25.7 K/uL (4.3-11.0)
[2017-08-22 05:32] LABS: CALCIUM, SERUM 7.4 mg/dL (8.5-10.1); CREATININE 1.7 mg/dL (0.6-1.3); MAGNESIUM 1.7 mg/dL (1.8-2.4); PHOSPHORUS 4.1 mg/dL (2.5-4.9); POTASSIUM 4.5 mmol/L (3.5-5.1)
[2017-08-22 05:34] LABS: INR 1.62 (0.87-1.13)
[2017-08-22 06:08] LABS: BAND % (MANUAL) 2 % (0.0-5.0); LYMPHOCYTES % (MANUAL) 7 % (16-48); MONOCYTES % (MANUAL) 4 % (0-11.0); NEUTROPHILS % (MANUAL) 87 (42-76)
[2017-08-22] MEDS: prednisoLONE ACET 1% OPHT DROP 5 ML BOTTLE LEFTEYE SCH ×3 (06:51→21:11)
[2017-08-22] MEDS: ATROPINE SULFATE OPHTH SOLN 15 ML BOTTLE EACHEYE SCH ×2 (06:53→16:05)
--- NOTE | 2017-08-22 07:00 | NUR ---
WORKPLACE REHABILITATION OFFICER- INITIAL NOTE RECEIVED PT ORALLY INTUBATED ETT 7.5, 21 CM @ THE LIP. RESPIRATIONS EVEN AND UNLABORED, NO SOB OR DISTRESS PRESENT. PT LETHARGIC HOWEVER AROUSABLE BY NAME, OPENS EYES AND FOLLOWS COMMANDS. BEDSIDE MONITOR REVEALS SINUS RHYTHM. G-TUBE PRESENT AND CURRENTLY CLAMPED. MARIPOSA MIDLINE RUNNING LEVOPHED GTT @ 3 MCG/MIN AND D10W WITH MULTIVITAMINS @ 125 ML/HR. PLAN FOR HD CATHETER REMOVAL AND REPLACEMENT TODAY, PT CURRENTLY NPO. SAFETY MEASURES TAKEN: BED LOCKED AND IN LOW POSITION, SIDE RAILS UP X2, BED ALARM ON AND CALL LIGHT WITHIN REACH, WILL CONTINUE TO MONITOR.
--- NOTE | 2017-08-22 08:07 | NUR ---
RT PATIENT REC'D ORALLY INTUBATED ON [facility] VENT WITH SETTINGS SET BY MD CECILY ANDRADE. VENT ALARMS CHECKED+ AUDIBLE. CUFF PRESSURE CHECKED ABALONE PROCESSOR. SX'D WITH SMALL AMT VALE SEMITHICK SECRETIONS. B/S DIM. AMBU BAG AT [facility]. CONT CURRENT PLAN OF RESP CARE. Addendum: 08/22/17 at 0910 by DIANE NARANJO RT Amended: Links added.
[2017-08-22] MEDS: POTASSIUM CHLORIDE 20 MEQ POWDER PACKET GT SCH (08:43)
[2017-08-22] MEDS: MEGESTROL ACETATE SUSP 400 MG/10 ML UDC PO SCH ×2 (08:44→17:11)
[2017-08-22] MEDS: LACTOBACILLUS RHAMNOSUS GG 1 EACH CAP.SPRINK PO SCH ×2 (08:44→17:11)
[2017-08-22] MEDS: MULTIVIT, IRON, MIN NO. 8, FA 1 TAB PO SCH (08:44)
[2017-08-22] MEDS: FOLIC ACID 1 MG TABLET PO SCH (08:44)
[2017-08-22] MEDS: ASCORBIC ACID 500 MG TABLET PO SCH (08:44)
[2017-08-22] MEDS: MIDODRINE HCL (5MG) 5 MG TABLET GT SCH ×2 (08:44→17:11)
[2017-08-22] MEDS: DOCUSATE SODIUM 100 MG CAPSULE PO SCH ×2 (08:44→16:00)
[2017-08-22] MEDS: ERGOCALCIFEROL (VITAMIN D 2) 50,000 UNIT CAPSULE PO SCH (08:44)
[2017-08-22] MEDS: NEUTRA PHOS 1 POWD.PACKET PO SCH ×2 (08:44→17:11)
[2017-08-22] MEDS: PROSOURCE / PROSTAT (PYXIS) 30 ML UDC PO SCH (08:44)
[2017-08-22] MEDS: ZINC SULFATE 220 MG CAPSULE PO SCH (08:45)
[2017-08-22] MEDS: BRIMONIDINE TARTRATE OPHT SOLN 5 ML BOTTLE EACHEYE SCH ×2 (08:50→16:05)
[2017-08-22] MEDS: PANTOPRAZOLE 40 MG VIAL IV SCH (08:50)
[2017-08-22] MEDS: MUPIROCIN OINT 2% 22 GM TUBE SCH ×2 (08:50→21:11)
[2017-08-22] MEDS: HYDROGEL DRESSING 90 GM TUBE TP SCH (08:51)
[2017-08-22] MEDS: TIMOLOL 0.5% SOLN OPHTH 5 ML BOTTLE EACHEYE SCH ×2 (08:51→16:05)
--- NOTE | 2017-08-22 09:25 | NUR ---
LINTER OPERATOR- DR. OGDEN AT BEDSIDE. UPDATED MD ON PT'S CONDITION. PER MD, RE-START PT ON TUBE FEEDINGS AFTER PT RETURNS FROM SURGERY TODAY. PT SCHEDULED FOR HD CATHETER REPLACEMENT TODAY AT 1500. MD AWARE. WILL CONTINUE TO MONITOR.
[2017-08-22] MEDS: SODIUM CHLORIDE 1000 MG TABLET.SOL GT SCH ×3 (10:00→17:13)
--- NOTE | 2017-08-22 10:10 | NUR ---
FUEL ISLAND ATTENDANT- ETT ADVANCED TO 23 CM BY RT ORDERED BY DR. CEDILLO. WILL CONTINUE TO MONITOR.
--- NOTE | 2017-08-22 10:35 | NUR ---
OYSTER HARVESTER- DR. CEDILLO AT BEDSIDE. UPDATED MD ON PT'S CONDITION. MD PLACED ON CPAP MODE. RT MADE AWARE. WILL CONTINUE TO MONITOR.
--- NOTE | 2017-08-22 10:59 | NUR ---
RT DR CEDILLO PLACED PATIENT ON CPAP PS 10, PEEP +5, 30%. AND ORDERED ETT TO BE PUSHED IN 3CM. ETT PUSHED IN AND SECURED AT 23CM MID LIP. Addendum: 08/22/17 at 1100 by DIANE NARANJO RT Amended: Links added.
[2017-08-22] MEDS: Magnesium 1GM/D5W 100ML PREMIX 100 ML IV SCH ×2 (11:07→12:06)
[2017-08-22] MEDS ORDERED: HEPARIN SODIUM, PORCINE 1,000 UNIT/ML VIAL ONE (11:44)
[2017-08-22] MEDS ORDERED: LIDOCAINE 0.5% HCL 50 ML VIAL ONE (11:44)
[2017-08-22] MEDS: EPOETIN ALFA (10,000 UNIT) 10,000 UNIT/ML VIAL IV SCH (11:52)
--- NOTE | 2017-08-22 12:30 | NUR ---
HAND WASHER- PT LEFT TO OR FOR HD CATHETER REMOVAL AND REPLACEMENT BY OR STAFF. CONTINUES ON LEVOPHED GTT AT 5 MCG/MIN. 1330- PT RETURNED FROM OR. DRESSING ON LEFT SUBCLAVIAN CLEAN, DRY AND INTACT. VITALS STABLE. WILL CONTINUE TO MONITOR. Addendum: 08/22/17 at 1503 by MONSTER ARCE RN RT PLACED PT BACK TO AC MODE BEFORE TRANSFERRING PT TO OR.
--- NOTE | 2017-08-22 13:36 | NUR ---
PATIENT RETURNED FROM SURGERY AND WAS PLACED BACK ON PREVIOUS AC MODE VENT SETTINGS. PATIENT WAS SEDATED DURING PROCEDURE. Addendum: 08/22/17 at 1337 by DIANE NARANJO RT Amended: Links added.
--- NOTE | 2017-08-22 16:00 | NUR ---
SUPERVISOR BLUEPRINTING AND PHOTOCOPY- TUBE FEEDINGS OF NOVASOURCE STARTED AT 10 ML/HR. RESIDUALS NOTED OF 5 ML. 1700- RESIDUALS CHECKED, RESULTS= 20 ML. 1800- RESIDUALS RE-CHECKED, RESULTS= 60 ML. TUBE FEEDINGS STOPPED. CHARGE NURSE AWARE. WILL CONTINUE TO MONITOR. Addendum: 08/22/17 at 1845 by MONSTER ARCE RN 184- DR. OGDEN AWARE OF RESIDUALS AND AWARE GTF HAS BEEN HELD DUE TO HIGH RESIDUALS.
[2017-08-22] MEDS: RENAL NOVASOURCE 1,000 ML BOTTLE GT PRN (16:02)
[2017-08-22] MEDS: NOREPINEPHRINE 16 MG in IV D5W 500 ML IV PRN (16:03)
--- NOTE | 2017-08-22 20:14 | NUR ---
PT RECEIVED INTUBATED ON VENT. NO RESP DISTRESS NOTED. PT TOLERATING VENT SETTINGS. SX'D FOR SML AMT OF THICK VALE SECRETIONS. VENT ALARMS SET AND AUDIBLE. AMBU BAG AT [facility]. VENT PLUGGED INTO RED OUTLET. WILL CONTINUE TO MONITOR. Addendum: 08/22/17 at 2016 by JO ANN THAO RT Amended: Links added.
--- NOTE | 2017-08-22 20:15 | NUR ---
RN NOTES PATIENT ASLEEP RESPONSIVE TO TACTILE STIMULI. WITH ETT 7.5/ 21 CM @ LIP CONNECTED TO VENT SETTING OF AC 16, TV 425 FIO2 30% PEEP 5 TOLERATD WELL SATING 100% NO ACUTE RESP DISTRESS. GT INTACT AND PATENT WITH HIFH RESIDUAL OF 110 CONTINUE TO HOLD FEEDING. TELE MONITOR READS SR. HR 68 BILATERAL BREATH SOUND RONCHI, SUCTIONED WITH SMALL AMT. OF YELLOW THICK SECRETION,IV SITE ON MARIPOSA PICC LINE RUNNING WITH D10% WITH MVI @ 125 CC/HR AND LEVOPHED @ 5 MCG/MIN. NEW HD CATH ON LEFT SUBCLAVIAN CLEANED WITH DRESSING INTACT. ORAL CARE RENDERED. IV SITE ON NOTED TEMP 94 RECHECKED VIA FOREHEAD 95.1 BEAR HUGGER RENDERED RECTAL TEMP IN PLACED FOR MONITORING. WILL CLOSELY MONITOR.
[2017-08-22] MEDS: SENNOSIDES 8.6 MG TABLET PO SCH (21:10)
[2017-08-22] MEDS: METRONIDAZOLE 500 MG TABLET PO SCH (21:10)
[2017-08-22] MEDS: ATORVASTATIN 10 MG TABLET PO SCH (21:10)
[2017-08-22] MEDS: MIRTAZAPINE 15 MG TABLET PO SCH (21:10)
[2017-08-22] MEDS: LATANOPROST EYE DROP 0.005% 2.5 ML BOTTLE EACHEYE SCH (21:10)
[2017-08-23] VITALS (77 sets, daily range): BP systolic 65–140; BP diastolic 39–90
[2017-08-23] MEDS: MVI ADULT 10ML VIAL = 1AMP 10 ML in IV 10% DEXTROSE 1,000 ML IV PRN (01:28)
[2017-08-23] MEDS: SODIUM CHLORIDE 1000 MG TABLET.SOL GT SCH ×3 (02:29→17:02)
[2017-08-23] MEDS: METOCLOPRAMIDE HCL 10 MG/2 ML VIAL IV SCH ×3 (02:29→17:20)
[2017-08-23 04:55] LABS: HEMATOCRIT 28 % (33-45); HEMOGLOBIN 9.3 g/dL (11.5-14.8); LYMPHOCYTES # (AUTO) 1.5 /CMM (0.8-4.8); LYMPHOCYTES % (AUTO) 5.9 % (20.0-44.0); MEAN CORPUSCULAR HEMOGLOBIN 30 PG (26.0-33.0); MEAN CORPUSCULAR HGB CONC 33 g/dl (31.0-36.0); MEAN CORPUSCULAR VOLUME 91 fL (82-100); MONOCYTES % (AUTO) 3.7 % (2.0-12.0); NEUTROPHILS # (AUTO) 23.2 /CMM (1.8-8.9); NEUTROPHILS % (AUTO) 90.4 % (43.0-81.0); PLATELET COUNT (AUTO) 139 /CMM (150-450); RDW COEFFICIENT OF VARIATION 18.9 (11.5-15.0); RED BLOOD CELL COUNT(AUTO) 3.05 MIL/uL (4.0-5.2); WHITE BLOOD COUNT (AUTO) 25.6 K/uL (4.3-11.0)
[2017-08-23 05:13] LABS: CALCIUM, SERUM 7.3 mg/dL (8.5-10.1); CREATININE 1.8 mg/dL (0.6-1.3); MAGNESIUM 1.9 mg/dL (1.8-2.4); PHOSPHORUS 4.5 mg/dL (2.5-4.9); POTASSIUM 4.7 mmol/L (3.5-5.1)
[2017-08-23 05:32] LABS: BAND % (MANUAL) 4 % (0.0-5.0); LYMPHOCYTES % (MANUAL) 8 % (16-48); MONOCYTES % (MANUAL) 4 % (0-11.0); NEUTROPHILS % (MANUAL) 84 (42-76)
[2017-08-23] MEDS: METRONIDAZOLE 500 MG TABLET PO SCH ×3 (05:55→21:08)
[2017-08-23] MEDS: prednisoLONE ACET 1% OPHT DROP 5 ML BOTTLE LEFTEYE SCH ×3 (05:56→21:10)
[2017-08-23] MEDS: INSULIN REGULAR, HUMAN 100 UNIT/ML 3 ML VIAL SQ PRN (06:06)
[2017-08-23] MEDS: BLOOD SUGAR DIAGNOSTIC 1 EACH STRIP IN SCH ×2 (06:07→17:19)
[2017-08-23] MEDS: ATROPINE SULFATE OPHTH SOLN 15 ML BOTTLE EACHEYE SCH ×2 (06:08→17:04)
--- NOTE | 2017-08-23 07:02 | NUR ---
WEB MARKETING COORDINATOR- INITIAL NOTE RECEIVED PT ORALLY INTUBATED ETT 7.5, 23 CM @ THE LIP. RESPIRATIONS EVEN AND UNLABORED, NO SOB OR DISTRESS PRESENT. PT LETHARGIC HOWEVER AROUSABLE BY NAME, OPENS EYES AND FOLLOWS COMMANDS. BEDSIDE MONITOR REVEALS SINUS RHYTHM. G-TUBE PRESENT AND CURRENTLY CLAMPED DUE TO PT UNABLE TO TOLERATE GTF. MARIPOSA MIDLINE RUNNING LEVOPHED GTT @ 5 MCG/MIN AND D10W WITH MULTIVITAMINS @ 125 ML/HR. PLAN FOR HD TODAY. SAFETY MEASURES TAKEN: BED LOCKED AND IN LOW POSITION, SIDE RAILS UP X2, BED ALARM ON AND CALL LIGHT WITHIN REACH, WILL CONTINUE TO MONITOR.
--- NOTE | 2017-08-23 07:06 | NUR ---
RN NOTES PT EYES IS OPEN TEMPERATURE IMPROVE FROM 92.2 TO 97.7. INTERVENTION EFFECTIVE. WARM BLANKET(BEAR HUGGER) EFFECTIVE. PT IS MORE AWAKE AND RESPONSIVE TO STIMULI, GRAB HANDS WHEN HOLDING. AND SHAKING HER HEADS. NO SIGNIFICANT CHANGES CONTINUE WITH IVF AND LEVOPHED STILL AT 5MCG/MIN. VS WNL. ALL DUE MEDICINE TOLERATED WELL. WITH ZERO RESIDUAL AT THIS TIME. WOUND CARE PROVIDED. PT IS CLEAN AND DRY. ENDORSED CONTINUITY OF CARE TO AM NURSE
[2017-08-23] MEDS: PANTOPRAZOLE 40 MG VIAL IV SCH (08:16)
--- NOTE | 2017-08-23 08:16 | NUR ---
RT START NOTE, PT. 62 Y OLD FEMALE REC. ORALLY INTUBATED ETT # 7.5 @ 23 CM LIPLINE. ON VENT WITH NOTED AC MODE ALARMS ARE SET AND FUNCTIONAL. EQUAL CHEST RISE NOTED. B/S BILATERALLY RALES AND SUX'D FOR SMALL AMT OF YELLOW SECRETIONS, PT. REMAIN STABLE AND CONTINUE FOR CARE AND MONITORING CLOSELY. AMBU BAG REMAIN AT THE BEDSIDE. VENT PLUGGED INTO RED OUTLET. Addendum: 08/23/17 at 0817 by NAKITA CRAIG RT Amended: Links added.
[2017-08-23] MEDS: MULTIVIT, IRON, MIN NO. 8, FA 1 TAB PO SCH (08:17)
[2017-08-23] MEDS: NEUTRA PHOS 1 POWD.PACKET PO SCH ×2 (08:17→17:02)
[2017-08-23] MEDS: ZINC SULFATE 220 MG CAPSULE PO SCH (08:17)
[2017-08-23] MEDS: ASCORBIC ACID 500 MG TABLET PO SCH (08:17)
[2017-08-23] MEDS: LACTOBACILLUS RHAMNOSUS GG 1 EACH CAP.SPRINK PO SCH ×2 (08:17→17:01)
[2017-08-23] MEDS: MEGESTROL ACETATE SUSP 400 MG/10 ML UDC PO SCH ×2 (08:17→17:02)
[2017-08-23] MEDS: MIDODRINE HCL (5MG) 5 MG TABLET GT SCH ×2 (08:17→17:02)
[2017-08-23] MEDS: TIMOLOL 0.5% SOLN OPHTH 5 ML BOTTLE EACHEYE SCH ×2 (08:18→17:03)
[2017-08-23] MEDS: BRIMONIDINE TARTRATE OPHT SOLN 5 ML BOTTLE EACHEYE SCH ×2 (08:19→17:03)
[2017-08-23] MEDS: HYDROGEL DRESSING 90 GM TUBE TP SCH (08:19)
[2017-08-23] MEDS: MUPIROCIN OINT 2% 22 GM TUBE SCH ×2 (08:20→21:10)
[2017-08-23] MEDS: POTASSIUM CHLORIDE 20 MEQ POWDER PACKET GT SCH (08:23)
[2017-08-23] MEDS: HYDROCODONE/APAP 5/325MG 1 EACH TABLET PO PRN (08:23)
[2017-08-23] MEDS: PROSOURCE / PROSTAT (PYXIS) 30 ML UDC PO SCH (08:23)
[2017-08-23] MEDS: FOLIC ACID 1 MG TABLET PO SCH (08:39)
[2017-08-23] MEDS: DOCUSATE SODIUM 100 MG CAPSULE PO SCH ×2 (09:00→16:56)
[2017-08-23] MEDS: LORAZEPAM 1 MG TABLET PO SCH (09:49)
--- NOTE | 2017-08-23 10:45 | NUR ---
KITCHENWHERE MAKER- HD STARTED. HD NURSE AT BEDSIDE. LEVO TO BE TITRATED PER PROTOCOL. 1245- HD COMPLETED. 1 L OUT. WILL CONTINUE TO MONITOR.
[2017-08-23] MEDS: ALBUMIN 25% 25 GM in PREMIX 1 EA IV PRN (11:24)
[2017-08-23] MEDS ORDERED: DEXTROSE 50%-WATER 50 ML DISP.SYRIN IV PRN (12:30)
[2017-08-23] MEDS ORDERED: [UNRECOGNIZED DRUG - OTHER] XX PRN (12:30)
[2017-08-23] MEDS: LEVOFLOXACIN 750 MG /D5W 150ML 750 MG in PREMIX 1 EA IV SCH (12:48)
[2017-08-23] MEDS ORDERED: MVI ADULT 10ML VIAL = 1AMP 10 ML in IV 10% DEXTROSE 1,000 ML IV PRN (13:00)
[2017-08-23] MEDS: EPOETIN ALFA (10,000 UNIT) 10,000 UNIT/ML VIAL IV SCH (14:56)
--- NOTE | 2017-08-23 17:57 | NUR ---
RT END OF THE SHIFT REPORT, PT. 62 Y OLD FEMALE REMAIN ORALLY INTUBATED ETT # 7.5 @ 23 CM LIPLINE. SECURED ON VENT WITH NOTED AC MODE ALARMS ARE SET AND FUNCTIONAL. EQUAL CHEST RISE NOTED. B/S BILATERALLY RHONCHI / RALES AND SUX'D FOR SMALL AMT OF YELLOWISH SECRETIONS, HME CHANGED. NO CHANGES OR ABG NEEDED PER DR. CEDILLO. T/O DAY AT THE BEDSIDE. PT. REMAIN STABLE AND CONTINUE FOR CARE AND MONITORING CLOSELY. FAMILY AT THE BEDSIDE. AMBU BAG REMAIN AT THE BEDSIDE. VENT PLUGGED INTO RED OUTLET. REPORT WILL BE PASS TO PM SHIFT. Addendum: 08/23/17 at 1758 by NAKITA CRAIG RT Amended: Links added.
[2017-08-23] MEDS: IV D5/ 0.9% NACL 1,000 ML IV PRN (19:08)
--- NOTE | 2017-08-23 20:43 | NUR ---
received pt from day shift, alert, follows simple commands, SR, receiving levo at 11mcg, on the vent, lungs congested, weeping/pitting edema, GT clamped, anuric, HD pt, v/s stable, no pain, pt turned and repositioned, family at the bedside.
--- NOTE | 2017-08-23 20:57 | NUR ---
PT RECEIVED INTUBATED ON VENT. NO RESP DISTRESS NOTED. PT TOLERATING VENT SETTINGS. SX'D FOR SML AMT OF THICK VALE SECRETIONS. VENT ALARMS SET AND AUDIBLE. AMBU BAG AT [facility]. VENT PLUGGED INTO RED OUTLET. WILL CONTINUE TO MONITOR. Addendum: 08/23/17 at 2056 by JO ANN THAO RT Amended: Links added.
[2017-08-23] MEDS: SENNOSIDES 8.6 MG TABLET PO SCH (21:08)
[2017-08-23] MEDS: ATORVASTATIN 10 MG TABLET PO SCH (21:08)
[2017-08-23] MEDS: MIRTAZAPINE 15 MG TABLET PO SCH (21:08)
[2017-08-23] MEDS: LATANOPROST EYE DROP 0.005% 2.5 ML BOTTLE EACHEYE SCH (21:09)
[2017-08-24] VITALS (82 sets, daily range): BP systolic 73–136; BP diastolic 34–77
[2017-08-24] MEDS: BLOOD SUGAR DIAGNOSTIC 1 EACH STRIP IN SCH ×5 (00:11→23:35)
--- NOTE | 2017-08-24 00:17 | NUR ---
pt is resting in the bed, SR, on levo at 10mcg, v/s stable, no pain, pt turned and repositioned q2hrs.
[2017-08-24] MEDS: METOCLOPRAMIDE HCL 10 MG/2 ML VIAL IV SCH ×3 (02:25→17:06)
[2017-08-24] MEDS: SODIUM CHLORIDE 1000 MG TABLET.SOL GT SCH ×3 (02:25→17:06)
[2017-08-24] MEDS: HYDROCODONE/APAP 5/325MG 1 EACH TABLET PO PRN (02:37)
[2017-08-24] MEDS: IV D5/ 0.9% NACL 1,000 ML IV PRN ×2 (04:12→14:19)
[2017-08-24] MEDS: NOREPINEPHRINE 16 MG in IV D5W 500 ML IV PRN ×2 (04:18→18:10)
--- NOTE | 2017-08-24 04:27 | NUR ---
pt is resting in the bed, no acute distress overnight, SR, on levo at 10mcg, v/s stable, no pain, pt cleaned, changed and repositioned q2hrs.
[2017-08-24 04:56] LABS: HEMATOCRIT 25 % (33-45); HEMOGLOBIN 8.4 g/dL (11.5-14.8); LYMPHOCYTES # (AUTO) 1.5 /CMM (0.8-4.8); LYMPHOCYTES % (AUTO) 8.4 % (20.0-44.0); MEAN CORPUSCULAR HEMOGLOBIN 31 PG (26.0-33.0); MEAN CORPUSCULAR HGB CONC 34 g/dl (31.0-36.0); MEAN CORPUSCULAR VOLUME 91 fL (82-100); MONOCYTES # (AUTO) 1.4 /CMM (0.1-1.30); MONOCYTES % (AUTO) 7.8 % (2.0-12.0); NEUTROPHILS # (AUTO) 14.8 /CMM (1.8-8.9); NEUTROPHILS % (AUTO) 83.8 % (43.0-81.0); PLATELET COUNT (AUTO) 113 /CMM (150-450); RDW COEFFICIENT OF VARIATION 19.9 (11.5-15.0); RED BLOOD CELL COUNT(AUTO) 2.75 MIL/uL (4.0-5.2); WHITE BLOOD COUNT (AUTO) 17.7 K/uL (4.3-11.0)
[2017-08-24 05:20] LABS: CALCIUM, SERUM 7.3 mg/dL (8.5-10.1); CREATININE 1.6 mg/dL (0.6-1.3); POTASSIUM 5.3 mmol/L (3.5-5.1)
[2017-08-24] MEDS: METRONIDAZOLE 500 MG TABLET PO SCH ×3 (05:26→21:09)
[2017-08-24] MEDS: prednisoLONE ACET 1% OPHT DROP 5 ML BOTTLE LEFTEYE SCH ×3 (05:27→21:11)
[2017-08-24] MEDS: INSULIN REGULAR, HUMAN 100 UNIT/ML 3 ML VIAL SQ PRN ×2 (05:35→11:30)
[2017-08-24] MEDS: ATROPINE SULFATE OPHTH SOLN 15 ML BOTTLE EACHEYE SCH ×2 (06:06→16:04)
--- NOTE | 2017-08-24 07:45 | NUR ---
ICU/RN - Initial Notes Received pt orally intubated to mechanical vent with settings as ordered. Respirations are even and unlabored. No s/s of pain or discomfort. Pt lethargic, opens eyes to tactile stimuli. On tele SR 70. Gt clamped, no residuals at this time. IV patent and intact with IVF infusing well. On Levophed gtt, titrated per protocol. Safety and comfort measures in place. Will continue to monitor pt closely.
[2017-08-24] MEDS: POTASSIUM CHLORIDE 20 MEQ POWDER PACKET GT SCH (08:08)
[2017-08-24] MEDS: NEUTRA PHOS 1 POWD.PACKET PO SCH ×2 (08:08→16:03)
[2017-08-24] MEDS: PROSOURCE / PROSTAT (PYXIS) 30 ML UDC PO SCH (08:15)
[2017-08-24] MEDS: MULTIVIT, IRON, MIN NO. 8, FA 1 TAB PO SCH (08:16)
[2017-08-24] MEDS: ASCORBIC ACID 500 MG TABLET PO SCH (08:16)
[2017-08-24] MEDS: LACTOBACILLUS RHAMNOSUS GG 1 EACH CAP.SPRINK PO SCH ×2 (08:16→16:03)
[2017-08-24] MEDS: FOLIC ACID 1 MG TABLET PO SCH (08:16)
[2017-08-24] MEDS: ZINC SULFATE 220 MG CAPSULE PO SCH (08:16)
[2017-08-24] MEDS: MIDODRINE HCL (5MG) 5 MG TABLET GT SCH ×2 (08:16→16:03)
[2017-08-24] MEDS: PANTOPRAZOLE 40 MG VIAL IV SCH (08:16)
[2017-08-24] MEDS: MEGESTROL ACETATE SUSP 400 MG/10 ML UDC PO SCH ×2 (08:16→16:03)
[2017-08-24] MEDS: HYDROGEL DRESSING 90 GM TUBE TP SCH (08:17)
[2017-08-24] MEDS: Z GUARD REMEDY 2 OZ OINT TP PRN (08:17)
[2017-08-24] MEDS: BRIMONIDINE TARTRATE OPHT SOLN 5 ML BOTTLE EACHEYE SCH ×2 (08:17→16:04)
[2017-08-24] MEDS: MUPIROCIN OINT 2% 22 GM TUBE SCH ×2 (08:18→21:12)
[2017-08-24] MEDS: DOCUSATE SODIUM 100 MG CAPSULE PO SCH (08:18)
[2017-08-24] MEDS: TIMOLOL 0.5% SOLN OPHTH 5 ML BOTTLE EACHEYE SCH ×2 (08:18→16:03)
[2017-08-24 08:25] LABS: ABG BASE EXCESS -4.7 mmol/L; ABG OXYGEN SATURATION 94.5 % (92.0-98.5); ABG PCO2 27.9 mmHg (35.0-45.0); ABG PH 7.442 (7.350-7.450); ABG PO2 76.8 mmHg (75.0-100.0); AaDO2 104.3 mmHg; COHb 0.4 % (0.5-1.5); MetHb 0.4 % (0.0-1.5); O2Hb 93.7 % (94.0-97.0); SITE, ABG Right Radial; VENT MODE, BG AC 16 425 30% +5
[2017-08-24] MEDS: DOCUSATE SODIUM LIQ 100 MG/10 ML UDC GT SCH ×2 (08:31→16:03)
--- NOTE | 2017-08-24 09:00 | NUR ---
ICU/RN - Notes Klor and Neutraphos not administered, AM labs noted with elevated Potassium and Phosphorus levels.
[2017-08-24] MEDS: EPOETIN ALFA (10,000 UNIT) 10,000 UNIT/ML VIAL IV SCH (12:28)
[2017-08-24] MEDS: RENAL NOVASOURCE 1,000 ML BOTTLE GT PRN (12:28)
--- NOTE | 2017-08-24 13:35 | NUR ---
ICU/RN - Notes Dr Bridges at bedside for evaluation, speaking with pt's son-in-law Jaxon regarding pt's need for Tracheostomy. Per family, need a few days to make definitive decision. Addendum: 08/24/17 at 1342 by GABBI EDMOND RN WRONG PATIENT. Disregard note above.
--- NOTE | 2017-08-24 13:43 | NUR ---
ICU/RN - Notes Dr Bridges at bedside for evaluation. Daughter at bedside. Per MD, would like pt to trial CPAP as tolerated. Notified RT Deandre.
--- NOTE | 2017-08-24 14:00 | NUR ---
ICU/RN - Notes Pt placed on CPAP on mechanical ventilator by RT Deandre. Will continue to monitor.
--- NOTE | 2017-08-24 17:55 | NUR ---
Pt was received on AC mode and placed on CPAP per MD order. Pt tolerated CPAP mode well. Vent is plugged into a red outlet, alarms are set and audible, and BVM is at bedside. Addendum: 08/24/17 at 1756 by GABRIELLE THOMAS RT Amended: Links added.
--- NOTE | 2017-08-24 18:54 | NUR ---
ICU/RN - Notes Pt tolerating CPAP with no s/s of respiratory distress. Tolerating tube feeding well.
--- NOTE | 2017-08-24 20:29 | NUR ---
received pt from day shift, alert, follows simple commands, SR, receiving levo at 7mcg, on the vent, lungs congested, pitting/weeping edema, throughout, GT to feeding tolerates well, anuric, HD in AM, v/s stable, no pain, pt turned and repositioned.
[2017-08-24] MEDS: MIRTAZAPINE 15 MG TABLET PO SCH (21:09)
[2017-08-24] MEDS: SENNOSIDES 8.6 MG TABLET PO SCH (21:09)
[2017-08-24] MEDS: ATORVASTATIN 10 MG TABLET PO SCH (21:09)
[2017-08-24] MEDS: LATANOPROST EYE DROP 0.005% 2.5 ML BOTTLE EACHEYE SCH (21:11)
[2017-08-25] VITALS (80 sets, daily range): BP systolic 45–174; BP diastolic 32–97
--- NOTE | 2017-08-25 00:16 | NUR ---
pt is resting in the bed, v/s stable, no pain, pt turned and repositioned q2hrs.
[2017-08-25] MEDS: IV D5/ 0.9% NACL 1,000 ML IV PRN (00:31)
[2017-08-25] MEDS: METOCLOPRAMIDE HCL 10 MG/2 ML VIAL IV SCH ×3 (02:34→17:16)
[2017-08-25] MEDS: SODIUM CHLORIDE 1000 MG TABLET.SOL GT SCH ×3 (02:34→17:15)
--- NOTE | 2017-08-25 04:17 | NUR ---
pt is resting in the bed, no acute distress overnight, on levo at 7mcg, tolerates feeding, v/s stable, no pain, pt cleaned, changed and repositioned q2hrs.
[2017-08-25] MEDS: METRONIDAZOLE 500 MG TABLET PO SCH ×3 (05:04→21:07)
[2017-08-25] MEDS: prednisoLONE ACET 1% OPHT DROP 5 ML BOTTLE LEFTEYE SCH ×3 (05:05→21:13)
[2017-08-25] MEDS: ATROPINE SULFATE OPHTH SOLN 15 ML BOTTLE EACHEYE SCH ×2 (06:05→17:16)
[2017-08-25] MEDS: BLOOD SUGAR DIAGNOSTIC 1 EACH STRIP IN SCH ×4 (06:05→23:22)
[2017-08-25] MEDS: PANTOPRAZOLE 40 MG VIAL IV SCH (08:24)
[2017-08-25] MEDS: POTASSIUM CHLORIDE 20 MEQ POWDER PACKET GT SCH ×2 (08:24→08:43)
[2017-08-25] MEDS: DOCUSATE SODIUM LIQ 100 MG/10 ML UDC GT SCH ×2 (08:24→17:00)
[2017-08-25] MEDS: PROSOURCE / PROSTAT (PYXIS) 30 ML UDC PO SCH (08:24)
[2017-08-25] MEDS: MEGESTROL ACETATE SUSP 400 MG/10 ML UDC PO SCH ×2 (08:25→17:14)
[2017-08-25] MEDS: LACTOBACILLUS RHAMNOSUS GG 1 EACH CAP.SPRINK PO SCH ×2 (08:25→17:14)
[2017-08-25] MEDS: ZINC SULFATE 220 MG CAPSULE PO SCH (08:25)
[2017-08-25] MEDS: MIDODRINE HCL (5MG) 5 MG TABLET GT SCH ×2 (08:25→17:13)
[2017-08-25] MEDS: NEUTRA PHOS 1 POWD.PACKET PO SCH ×2 (08:25→17:13)
[2017-08-25] MEDS: FOLIC ACID 1 MG TABLET PO SCH (08:25)
[2017-08-25] MEDS: ASCORBIC ACID 500 MG TABLET PO SCH (08:25)
[2017-08-25] MEDS: MULTIVIT, IRON, MIN NO. 8, FA 1 TAB PO SCH (08:25)
[2017-08-25] MEDS: Z GUARD REMEDY 2 OZ OINT TP PRN (08:26)
[2017-08-25] MEDS: HYDROGEL DRESSING 90 GM TUBE TP SCH (08:26)
[2017-08-25] MEDS: BRIMONIDINE TARTRATE OPHT SOLN 5 ML BOTTLE EACHEYE SCH ×2 (08:28→17:16)
[2017-08-25] MEDS: TIMOLOL 0.5% SOLN OPHTH 5 ML BOTTLE EACHEYE SCH ×2 (08:28→17:17)
[2017-08-25] MEDS: MUPIROCIN OINT 2% 22 GM TUBE SCH ×2 (08:29→21:12)
[2017-08-25 09:16] LABS: BASOPHILS % (AUTO) 0.1 % (0.0-2.0); HEMATOCRIT 25 % (33-45); HEMOGLOBIN 8.3 g/dL (11.5-14.8); LYMPHOCYTES % (AUTO) 5.4 % (20.0-44.0); MEAN CORPUSCULAR HEMOGLOBIN 30 PG (26.0-33.0); MEAN CORPUSCULAR HGB CONC 33 g/dl (31.0-36.0); MEAN CORPUSCULAR VOLUME 92 fL (82-100); MONOCYTES # (AUTO) 1.5 /CMM (0.1-1.30); MONOCYTES % (AUTO) 7.7 % (2.0-12.0); NEUTROPHILS # (AUTO) 16.4 /CMM (1.8-8.9); NEUTROPHILS % (AUTO) 86.8 % (43.0-81.0); PLATELET COUNT (AUTO) 118 /CMM (150-450); RDW COEFFICIENT OF VARIATION 21.6 (11.5-15.0); RED BLOOD CELL COUNT(AUTO) 2.74 MIL/uL (4.0-5.2)
[2017-08-25 09:47] LABS: CALCIUM, SERUM 7.5 mg/dL (8.5-10.1); CREATININE 1.6 mg/dL (0.6-1.3); POTASSIUM 4.8 mmol/L (3.5-5.1)
[2017-08-25] MEDS: ALBUMIN 25% 25 GM in PREMIX 1 EA IV PRN (10:54)
[2017-08-25] MEDS: EPOETIN ALFA (10,000 UNIT) 10,000 UNIT/ML VIAL IV SCH (10:58)
[2017-08-25] MEDS: LORAZEPAM 1 MG TABLET PO SCH (11:15)
[2017-08-25] MEDS ORDERED: PROPOFOL 100 ML IV PRN (12:00)
[2017-08-25] MEDS: LEVOFLOXACIN 750 MG /D5W 150ML 750 MG in PREMIX 1 EA IV SCH (12:48)
[2017-08-25] MEDS: RENAL NOVASOURCE 1,000 ML BOTTLE GT PRN (15:32)
--- NOTE | 2017-08-25 17:00 | NUR ---
ICU/RN DUE MEDS ARE GIVEN ORDERED.PM CARE PROVIDED.WOUND DRESSING DONE ORDERED.GENERALIZED WEEPING EDEMA PRESENT .SUCTION PROVIDED.REPOSITION FOR COMFORT.PT IS ON LEVOPHED.G-TUBE FEEDING AT 40 ML/HR, RESIDUAL 50 ML NOTED. REGLAN IV GIVEN ORDERED .CONTINUE MONITORING, REPOSITION FOR COMFORT.
[2017-08-25] MEDS: NOREPINEPHRINE 16 MG in IV D5W 500 ML IV PRN (17:12)
[2017-08-25] MEDS: INSULIN REGULAR, HUMAN 100 UNIT/ML 3 ML VIAL SQ PRN (17:57)
--- NOTE | 2017-08-25 20:35 | NUR ---
received pt from day shift, alert, follows simple commands, SR, receiving levo at 10mcg, on vent, failed weaning trial, lungs congested, pitting/weeping edema throughout, GT to feeding low residual, HD was today, v/s stable, no pain, pt turned and repositioned, daughter at the bedside.
[2017-08-25] MEDS: ATORVASTATIN 10 MG TABLET PO SCH (21:07)
[2017-08-25] MEDS: MIRTAZAPINE 15 MG TABLET PO SCH (21:07)
[2017-08-25] MEDS: SENNOSIDES 8.6 MG TABLET PO SCH (21:07)
[2017-08-25] MEDS: HYDROCODONE/APAP 5/325MG 1 EACH TABLET PO PRN (21:11)
[2017-08-25] MEDS: LATANOPROST EYE DROP 0.005% 2.5 ML BOTTLE EACHEYE SCH (21:13)
--- NOTE | 2017-08-25 21:42 | NUR ---
Received pt on vent support, pt stable on current settings, no SOB or respiratory distress noted, ventilator is plugged into red outlet, alarms audible and on. Ambu bag at bedside, will continue monitoring per MDS orders. Addendum: 08/25/17 at 2142 by NADIYA OCAMPO RT Amended: Links added.
[2017-08-26] VITALS (95 sets, daily range): BP systolic 11–133; BP diastolic 38–87
--- NOTE | 2017-08-26 00:37 | NUR ---
pt is resting in the bed, v/s stable, no pain, pt turned and repositioned q2hrs.
[2017-08-26] MEDS: METOCLOPRAMIDE HCL 10 MG/2 ML VIAL IV SCH ×3 (01:24→17:03)
[2017-08-26] MEDS: SODIUM CHLORIDE 1000 MG TABLET.SOL GT SCH ×3 (01:24→17:03)
--- NOTE | 2017-08-26 04:24 | NUR ---
pt is resting in the bed, no acute distress overnight, alert, follows simple commands, SR, on levo at 12mcg, tolerates feeding, v/s stable, no pain, pt cleaned, changed and repositioned q2hrs.
[2017-08-26 04:44] LABS: BASOPHILS % (AUTO) 0.2 % (0.0-2.0); HEMATOCRIT 25 % (33-45); HEMOGLOBIN 8.2 g/dL (11.5-14.8); LYMPHOCYTES # (AUTO) 1.2 /CMM (0.8-4.8); LYMPHOCYTES % (AUTO) 5.8 % (20.0-44.0); MEAN CORPUSCULAR HEMOGLOBIN 31 PG (26.0-33.0); MEAN CORPUSCULAR HGB CONC 33 g/dl (31.0-36.0); MEAN CORPUSCULAR VOLUME 92 fL (82-100); MONOCYTES % (AUTO) 9.4 % (2.0-12.0); NEUTROPHILS # (AUTO) 17.8 /CMM (1.8-8.9); NEUTROPHILS % (AUTO) 84.6 % (43.0-81.0); PLATELET COUNT (AUTO) 127 /CMM (150-450); RED BLOOD CELL COUNT(AUTO) 2.68 MIL/uL (4.0-5.2)
[2017-08-26 05:14] LABS: ALANINE AMINOTRANSFERASE < 6 U/L (12-78); ALBUMIN 2.2 g/dL (3.4-5.0); ASPARTATE AMINOTRANSFERASE 36 U/L (15-37); BILIRUBIN,TOTAL 2.7 mg/dL (0.2-1.0); CARBON DIOXIDE 21 mmol/L (21-32); CHLORIDE 96 mmol/L (98-107); CREATININE 1.5 mg/dL (0.6-1.3); GLUCOSE 139 mg/dL (74-106); MAGNESIUM 1.8 mg/dL (1.8-2.4); PHOSPHORUS 4.6 mg/dL (2.5-4.9); POTASSIUM 4.5 mmol/L (3.5-5.1); SODIUM SERUM 127 mmol/L (136-145); TOTAL PROTEIN, SERUM 4.8 g/dL (6.4-8.2); UREA NITROGEN, BLOOD 17 mg/dL (7-18)
[2017-08-26 05:15] LABS: ALKALINE PHOSPHATASE 1048 U/L (46-116)
[2017-08-26 05:30] LABS: LYMPHOCYTES % (MANUAL) 7 % (16-48); MONOCYTES % (MANUAL) 11 % (0-11.0); NEUTROPHILS % (MANUAL) 82 (42-76)
[2017-08-26] MEDS: METRONIDAZOLE 500 MG TABLET PO SCH ×3 (05:35→21:11)
[2017-08-26] MEDS: prednisoLONE ACET 1% OPHT DROP 5 ML BOTTLE LEFTEYE SCH ×3 (05:37→21:12)
[2017-08-26] MEDS: BLOOD SUGAR DIAGNOSTIC 1 EACH STRIP IN SCH ×3 (05:38→17:03)
[2017-08-26] MEDS ORDERED: ALBUMIN 25% 100 ML IV ONE (05:47)
[2017-08-26] MEDS: ALBUMIN 25% 25 GM in PREMIX 1 EA IV PRN (05:48)
[2017-08-26] MEDS: ATROPINE SULFATE OPHTH SOLN 15 ML BOTTLE EACHEYE SCH ×2 (06:15→16:27)
--- NOTE | 2017-08-26 07:00 | NUR ---
icu initial note- received report from raine murillo, pt is lethargic, follows simple commands, unable to move all extremities, a/o to name, pt is on mech vent ett 7.5/ lipline ac 16 tv 425 fio2 30% peep 5, sating well, no s/s of resp.distress or sob noted at this time, pt is on bedside monitor showing sr in 80's, no s/s of chest pain or discomfort at this time, pt has princess picc line running levo @12mcg/min, c/d/i, patent, flushing well, no s/s of infection/ infiltration noted at this time, dressing clean and dry, l subclavian hd cath, dressing c/d/i, pt is noted with multiple skin issues, md aware, wound treatments ack and will be carried out, pt gtube, running novasource@40ml/hr, tolerating well, no residuals noted at this time, pt is anuric, pt is currently receiving hd at this time, isolation precautions observed at all times,all safety measures in place at all times, call light within easy reach, will monitor pt closely for changes
--- NOTE | 2017-08-26 07:40 | NUR ---
icu note- hd completed, 3l removed. vvs
[2017-08-26] MEDS: PROSOURCE / PROSTAT (PYXIS) 30 ML UDC PO SCH (08:47)
[2017-08-26] MEDS: MIDODRINE HCL (5MG) 5 MG TABLET GT SCH ×2 (08:48→16:26)
[2017-08-26] MEDS: DOCUSATE SODIUM LIQ 100 MG/10 ML UDC GT SCH ×3 (08:48→16:12)
[2017-08-26] MEDS: NEUTRA PHOS 1 POWD.PACKET PO SCH ×2 (08:48→16:26)
[2017-08-26] MEDS: MEGESTROL ACETATE SUSP 400 MG/10 ML UDC PO SCH ×2 (08:48→16:26)
[2017-08-26] MEDS: ZINC SULFATE 220 MG CAPSULE PO SCH (08:48)
[2017-08-26] MEDS: PANTOPRAZOLE 40 MG VIAL IV SCH (08:48)
[2017-08-26] MEDS: POTASSIUM CHLORIDE 20 MEQ POWDER PACKET GT SCH (08:48)
[2017-08-26] MEDS: LACTOBACILLUS RHAMNOSUS GG 1 EACH CAP.SPRINK PO SCH ×2 (08:48→16:26)
[2017-08-26] MEDS: FOLIC ACID 1 MG TABLET PO SCH (08:48)
[2017-08-26] MEDS: MULTIVIT, IRON, MIN NO. 8, FA 1 TAB PO SCH (08:48)
[2017-08-26] MEDS: ASCORBIC ACID 500 MG TABLET PO SCH (08:48)
[2017-08-26] MEDS: BRIMONIDINE TARTRATE OPHT SOLN 5 ML BOTTLE EACHEYE SCH ×2 (08:49→16:27)
[2017-08-26] MEDS: MUPIROCIN OINT 2% 22 GM TUBE SCH ×2 (08:50→21:11)
[2017-08-26] MEDS: Z GUARD REMEDY 2 OZ OINT TP PRN (08:51)
[2017-08-26] MEDS: RENAL NOVASOURCE 1,000 ML BOTTLE GT PRN (09:23)
[2017-08-26] MEDS: HYDROGEL DRESSING 90 GM TUBE TP SCH (09:40)
[2017-08-26] MEDS: TIMOLOL 0.5% SOLN OPHTH 5 ML BOTTLE EACHEYE SCH ×2 (09:41→16:27)
[2017-08-26] MEDS: INSULIN REGULAR, HUMAN 100 UNIT/ML 3 ML VIAL SQ PRN (12:03)
--- NOTE | 2017-08-26 12:10 | NUR ---
icu note- pt sister called, updated on pt condition, all questions and concerns answered, will come tonight
[2017-08-26] MEDS: EPOETIN ALFA (10,000 UNIT) 10,000 UNIT/ML VIAL IV SCH (13:17)
--- NOTE | 2017-08-26 13:34 | NUR ---
ICU NOTE- DAUGHTER AT PT BEDSIDE, UPDATED ON PT CONDITION, ALL QUESTIONS AND CONCERNS ANSWERED
[2017-08-26] MEDS: NOREPINEPHRINE 16 MG in IV D5W 500 ML IV PRN (16:25)
--- NOTE | 2017-08-26 18:01 | NUR ---
Received pt on vent support, pt stable on current settings, no SOB or respiratory distress noted, ventilator is plugged into red outlet, alarms audible and on. Ambu bag at bedside, will continue monitoring per MDS orders. Addendum: 08/26/17 at 1802 by AMBROSE LOPEZ RT Amended: Links added.
--- NOTE | 2017-08-26 20:00 | NUR ---
Received patient resting easily awakened follows simple commands.Patient on vent support No respiratory distress noted.VSS.SR with occasional pvc's.Levophed gtt infusing at 14 mcg for BP support and will titrate accordingly.Generalized edema.Both arms weeping kept clean and dry. GT feeding in progress tolerating well with residual 5 ml.Anuric.Patient with multiple skin issues. Turned and repositioned offloading pressure points.Maintained on KCI mattress.Denies pain. Contact isolation for MRSA nares observed.Continue monitoring.
[2017-08-26] MEDS: ATORVASTATIN 10 MG TABLET PO SCH (22:00)
[2017-08-26] MEDS: MIRTAZAPINE 15 MG TABLET PO SCH (22:00)
[2017-08-26] MEDS: SENNOSIDES 8.6 MG TABLET PO SCH (22:00)
[2017-08-26] MEDS: LATANOPROST EYE DROP 0.005% 2.5 ML BOTTLE EACHEYE SCH (22:01)
[2017-08-27] VITALS (103 sets, daily range): BP systolic 83–131; BP diastolic 36–69
--- NOTE | 2017-08-27 00:07 | NUR ---
Received pt on vent support, pt stable on current settings, no SOB or respiratory distress noted, ventilator is plugged into red outlet, alarms audible and on. Ambu bag at bedside, will continue monitoring per MDS orders. Addendum: 08/27/17 at 0007 by NADIYA OCAMPO RT Amended: Links added.
[2017-08-27] MEDS: BLOOD SUGAR DIAGNOSTIC 1 EACH STRIP IN SCH ×5 (00:13→23:56)
[2017-08-27] MEDS: INSULIN REGULAR, HUMAN 100 UNIT/ML 3 ML VIAL SQ PRN ×2 (00:14→05:40)
[2017-08-27] MEDS: METOCLOPRAMIDE HCL 10 MG/2 ML VIAL IV SCH ×3 (02:02→17:42)
[2017-08-27] MEDS: SODIUM CHLORIDE 1000 MG TABLET.SOL GT SCH ×3 (02:02→17:50)
[2017-08-27] MEDS: METRONIDAZOLE 500 MG TABLET PO SCH ×3 (05:00→21:31)
[2017-08-27] MEDS: prednisoLONE ACET 1% OPHT DROP 5 ML BOTTLE LEFTEYE SCH ×3 (05:39→21:32)
--- NOTE | 2017-08-27 06:00 | NUR ---
Patient resting.VSS.Levophed infusing at 14 mcg/min.Tolerating feeding.AM care done. No significant change noted on patient status.Turned and repositioned.Denies pain.
--- NOTE | 2017-08-27 07:40 | NUR ---
ICU/RN INITIAL NOTES, AM RECEIVED REPORT FROM NIGHT NURSE. PT INTUBATED, ETT 7.5, 23 CM AT THE LIP. PT ON VENT SETTINGS ORDERED, NO DISTRESS NOTED AT THIS TIME. PT OPENS EYES, FOLLOWS SIMPLE COMMANDS. PT SINUS ON TELE WITH OCCASIONAL PVC'S. GUTBE IN PLACE, NOVASOURCE AT 30ML/HR, TOLKERATING WELL. LEVO INFUSING FOR BP SUPPORT. ALL NEEDS WILL BE ATTENDED TO, SAFETY MEASURES TAKEN, BED IN LOW POSITION, SIDE RAILS UP, CALL LIGHT WITHIN REACH. PT TURNED AND REPOSITIONED.
--- NOTE | 2017-08-27 07:50 | NUR ---
PT REC'D INTUBATED VIA 7.5 ETT AT 23CM AT THE LIP. VENT SETTINGS PER MD REQUEST, ALARMS SET AND AUDIBLE PER POLICY. VENT PLUGGED INTO RED OUTLET. MI BAG AT HOB. Addendum: 08/27/17 at 0751 by SETH DU RT Amended: Links added.
[2017-08-27] MEDS: MEGESTROL ACETATE SUSP 400 MG/10 ML UDC PO SCH ×2 (08:55→17:42)
[2017-08-27] MEDS: NEUTRA PHOS 1 POWD.PACKET PO SCH ×2 (08:55→17:42)
[2017-08-27] MEDS: PANTOPRAZOLE 40 MG VIAL IV SCH (08:55)
[2017-08-27] MEDS: LACTOBACILLUS RHAMNOSUS GG 1 EACH CAP.SPRINK PO SCH ×2 (08:56→17:43)
[2017-08-27] MEDS: PROSOURCE / PROSTAT (PYXIS) 30 ML UDC PO SCH (08:56)
[2017-08-27] MEDS: FOLIC ACID 1 MG TABLET PO SCH (08:56)
[2017-08-27] MEDS: ZINC SULFATE 220 MG CAPSULE PO SCH (08:56)
[2017-08-27] MEDS: MIDODRINE HCL (5MG) 5 MG TABLET GT SCH ×2 (08:56→17:42)
[2017-08-27] MEDS: POTASSIUM CHLORIDE 20 MEQ POWDER PACKET GT SCH (08:56)
[2017-08-27] MEDS: ASCORBIC ACID 500 MG TABLET PO SCH (08:56)
[2017-08-27] MEDS: HYDROGEL DRESSING 90 GM TUBE TP SCH (08:57)
[2017-08-27] MEDS: BRIMONIDINE TARTRATE OPHT SOLN 5 ML BOTTLE EACHEYE SCH ×2 (08:57→17:47)
[2017-08-27] MEDS: ATROPINE SULFATE OPHTH SOLN 15 ML BOTTLE EACHEYE SCH ×2 (08:58→17:47)
[2017-08-27] MEDS: MUPIROCIN OINT 2% 22 GM TUBE SCH ×2 (08:58→21:31)
[2017-08-27] MEDS: DOCUSATE SODIUM LIQ 100 MG/10 ML UDC GT SCH ×2 (08:59→16:09)
[2017-08-27] MEDS: TIMOLOL 0.5% SOLN OPHTH 5 ML BOTTLE EACHEYE SCH ×2 (08:59→17:47)
[2017-08-27] MEDS: MULTIVIT, IRON, MIN NO. 8, FA 1 TAB PO SCH (09:03)
--- NOTE | 2017-08-27 10:10 | NUR ---
ICU/RN: HEMODIALYSIS STARTED. ALBUMIN GIVEN. PT ON LEVO FOR BP SUPPORT. WILL CONTINUE TO MONITOR.
[2017-08-27] MEDS: LORAZEPAM 1 MG TABLET PO SCH (10:30)
[2017-08-27] MEDS: ALBUMIN 25% 25 GM in PREMIX 1 EA IV PRN (10:33)
[2017-08-27] MEDS: NOREPINEPHRINE 16 MG in IV D5W 500 ML IV PRN ×2 (10:53→19:01)
[2017-08-27] MEDS: LEVOFLOXACIN 750 MG /D5W 150ML 750 MG in PREMIX 1 EA IV SCH (12:16)
[2017-08-27 13:18] LABS: BASOPHILS # (AUTO) 0.1 /CMM (0.0-0.2); BASOPHILS % (AUTO) 0.3 % (0.0-2.0); HEMATOCRIT 23 % (33-45); HEMOGLOBIN 7.7 g/dL (11.5-14.8); LYMPHOCYTES # (AUTO) 1.8 /CMM (0.8-4.8); LYMPHOCYTES % (AUTO) 6.9 % (20.0-44.0); MEAN CORPUSCULAR HEMOGLOBIN 31 PG (26.0-33.0); MEAN CORPUSCULAR HGB CONC 33 g/dl (31.0-36.0); MEAN CORPUSCULAR VOLUME 93 fL (82-100); MONOCYTES # (AUTO) 2.8 /CMM (0.1-1.30); MONOCYTES % (AUTO) 10.9 % (2.0-12.0); NEUTROPHILS # (AUTO) 21.1 /CMM (1.8-8.9); NEUTROPHILS % (AUTO) 81.9 % (43.0-81.0); PLATELET COUNT (AUTO) 70 /CMM (150-450); RED BLOOD CELL COUNT(AUTO) 2.53 MIL/uL (4.0-5.2); WHITE BLOOD COUNT (AUTO) 25.8 K/uL (4.3-11.0)
[2017-08-27 15:11] LABS: LYMPHOCYTES % (MANUAL) 10 % (16-48); MONOCYTES % (MANUAL) 7 % (0-11.0); NEUTROPHILS % (MANUAL) 83 (42-76)
[2017-08-27] MEDS: EPOETIN ALFA (10,000 UNIT) 10,000 UNIT/ML VIAL IV SCH (16:09)
[2017-08-27] MEDS: RENAL NOVASOURCE 1,000 ML BOTTLE GT PRN (17:45)
--- NOTE | 2017-08-27 18:50 | NUR ---
ICU/RN: ENDING NOTES,AM REPORT WILL BE ENDORSED TO NIGHT NURSE FOR CONTINUATION OF CARE. ALL NEEDS ATTENDED TO, SAFETY MEASURES TAKEN. PT ON VENT SETTINGS ORDERED BY . LEVO FOR BP SUPPORT POST HD 3 LITERS OUT, BED BATH GIVEN, TURNED AND REPOSITIONED. SAFETY MEASURES TAKEN, BED IN LOW POSITION, SIDE RIALS UP, CALL LIGHT WITHIN REACH.
--- NOTE | 2017-08-27 20:00 | NUR ---
MANAGER BEHAVIOR Received patient resting open eyes to name and follows simple commands.Denies pain. VSS.SR with occasional pvc's.Levophed infusing for BP support.Maintained on same vent settings.Well tolerated.OGT feeding in progress.Turned and repositioned to comfort.Safety measures observed with call light within reach.Anuric HD patient.
--- NOTE | 2017-08-27 20:31 | NUR ---
PT RECEIVED INTUBATED WITH 7.5 ETT SECURED AT 23CM AT THE LIP. NO RESP DISTRESS NOTED PT TOLERATING VENT SETTINGS. SX'D FOR MOD AMT OF THICK YELLOW SECRETIONS. VENT ALARMS SET AND AUDIBLE. AMBU BAG AT [facility]. VENT PLUGGED INTO RED OUTLET. WILL CONTINUE TO MONITOR. Addendum: 08/27/17 at 2031 by JO ANN THAO RT Amended: Links added.
[2017-08-27] MEDS: ATORVASTATIN 10 MG TABLET PO SCH (21:32)
[2017-08-27] MEDS: LATANOPROST EYE DROP 0.005% 2.5 ML BOTTLE EACHEYE SCH (21:32)
[2017-08-27] MEDS: MIRTAZAPINE 15 MG TABLET PO SCH (21:32)
[2017-08-27] MEDS: SENNOSIDES 8.6 MG TABLET PO SCH (21:33)
[2017-08-28] VITALS (113 sets, daily range): BP systolic 48–134; BP diastolic 18–99
[2017-08-28] MEDS: SODIUM CHLORIDE 1000 MG TABLET.SOL GT SCH ×3 (01:54→17:14)
[2017-08-28] MEDS: METOCLOPRAMIDE HCL 10 MG/2 ML VIAL IV SCH ×3 (01:55→17:35)
[2017-08-28 04:58] LABS: BASOPHILS % (AUTO) 0.1 % (0.0-2.0); HEMATOCRIT 23 % (33-45); HEMOGLOBIN 7.5 g/dL (11.5-14.8); LYMPHOCYTES # (AUTO) 1.8 /CMM (0.8-4.8); LYMPHOCYTES % (AUTO) 6.5 % (20.0-44.0); MEAN CORPUSCULAR HEMOGLOBIN 31 PG (26.0-33.0); MEAN CORPUSCULAR HGB CONC 33 g/dl (31.0-36.0); MEAN CORPUSCULAR VOLUME 94 fL (82-100); MONOCYTES # (AUTO) 2.2 /CMM (0.1-1.30); MONOCYTES % (AUTO) 8.1 % (2.0-12.0); NEUTROPHILS # (AUTO) 22.9 /CMM (1.8-8.9); NEUTROPHILS % (AUTO) 85.3 % (43.0-81.0); PLATELET COUNT (AUTO) 88 /CMM (150-450); RDW COEFFICIENT OF VARIATION 21.3 (11.5-15.0); RED BLOOD CELL COUNT(AUTO) 2.44 MIL/uL (4.0-5.2); WHITE BLOOD COUNT (AUTO) 26.8 K/uL (4.3-11.0)
[2017-08-28] MEDS: METRONIDAZOLE 500 MG TABLET PO SCH ×3 (05:01→21:23)
[2017-08-28 05:21] LABS: CREATININE 1.4 mg/dL (0.6-1.3); POTASSIUM 4.4 mmol/L (3.5-5.1)
[2017-08-28 05:24] LABS: BAND % (MANUAL) 1 % (0.0-5.0); LYMPHOCYTES % (MANUAL) 7 % (16-48); MONOCYTES % (MANUAL) 5 % (0-11.0); NEUTROPHILS % (MANUAL) 87 (42-76)
[2017-08-28] MEDS: prednisoLONE ACET 1% OPHT DROP 5 ML BOTTLE LEFTEYE SCH ×3 (05:43→21:25)
[2017-08-28] MEDS: INSULIN REGULAR, HUMAN 100 UNIT/ML 3 ML VIAL SQ PRN (05:44)
[2017-08-28] MEDS: BLOOD SUGAR DIAGNOSTIC 1 EACH STRIP IN SCH ×4 (05:47→23:18)
--- NOTE | 2017-08-28 07:13 | NUR ---
Patient resting.VSS.No distress noted.No significant changes noted.AM care done. Tolerating feeding.Remains anuric.Levophed infusing for BP support.Maintained on vent support on prescribed settings.Report given to AM shift RN for YVES.
--- NOTE | 2017-08-28 07:39 | NUR ---
ICU/RN INITIAL NOTES, AM RECEIVED REPORT FROM NIGHT NURSE. PT INTUBATED, ETT 7.5, 23 CM AT THE LIP. PT ON VENT SETTINGS ORDERED, NO DISTRESS NOTED AT THIS TIME. PT OPENS EYES, FOLLOWS SIMPLE COMMANDS. PT SINUS ON TELE. GUTBE IN PLACE, NOVASOURCE AT 30ML/HR, TOLERATING WELL. LEVO INFUSING FOR BP SUPPORT AT 12 MCG. ALL NEEDS WILL BE ATTENDED TO, SAFETY MEASURES TAKEN, BED IN LOW POSITION, SIDE RAILS UP, CALL LIGHT WITHIN REACH. PT TURNED AND REPOSITIONED.
[2017-08-28] MEDS: PANTOPRAZOLE 40 MG VIAL IV SCH (08:40)
[2017-08-28] MEDS: ZINC SULFATE 220 MG CAPSULE PO SCH (08:40)
[2017-08-28] MEDS: MEGESTROL ACETATE SUSP 400 MG/10 ML UDC PO SCH ×2 (08:41→17:14)
[2017-08-28] MEDS: MIDODRINE HCL (5MG) 5 MG TABLET GT SCH ×2 (08:41→17:14)
[2017-08-28] MEDS: POTASSIUM CHLORIDE 20 MEQ POWDER PACKET GT SCH (08:41)
[2017-08-28] MEDS: FOLIC ACID 1 MG TABLET PO SCH (08:41)
[2017-08-28] MEDS: ASCORBIC ACID 500 MG TABLET PO SCH (08:41)
[2017-08-28] MEDS: NEUTRA PHOS 1 POWD.PACKET PO SCH ×2 (08:41→17:14)
[2017-08-28] MEDS: PROSOURCE / PROSTAT (PYXIS) 30 ML UDC PO SCH (08:41)
[2017-08-28] MEDS: LACTOBACILLUS RHAMNOSUS GG 1 EACH CAP.SPRINK PO SCH ×2 (08:41→17:14)
[2017-08-28] MEDS: MUPIROCIN OINT 2% 22 GM TUBE SCH ×2 (08:42→21:24)
[2017-08-28] MEDS: BRIMONIDINE TARTRATE OPHT SOLN 5 ML BOTTLE EACHEYE SCH ×2 (08:44→17:15)
[2017-08-28] MEDS: DOCUSATE SODIUM LIQ 100 MG/10 ML UDC GT SCH ×2 (08:44→17:00)
[2017-08-28] MEDS: TIMOLOL 0.5% SOLN OPHTH 5 ML BOTTLE EACHEYE SCH ×2 (08:45→17:15)
[2017-08-28] MEDS: ATROPINE SULFATE OPHTH SOLN 15 ML BOTTLE EACHEYE SCH ×2 (08:45→17:16)
[2017-08-28] MEDS: MULTIVIT, IRON, MIN NO. 8, FA 1 TAB PO SCH (08:45)
[2017-08-28] MEDS: HYDROGEL DRESSING 90 GM TUBE TP SCH (08:45)
[2017-08-28] MEDS: ALBUMIN 25% 25 GM in PREMIX 1 EA IV PRN (11:26)
[2017-08-28] MEDS: EPOETIN ALFA (10,000 UNIT) 10,000 UNIT/ML VIAL IV SCH (12:16)
--- NOTE | 2017-08-28 13:20 | NUR ---
ICU/RN: END OF HD, 2.5LITERS OUT. HR NOTED TO BE SINUS TACHYCARDIA 125-135. WILL CONTINUE TO MONITOR. VSS, NO DISTRESS. PT AFEBRILE. WILL CONTINUE TO MONITOR AND ASSESS.
--- NOTE | 2017-08-28 17:00 | NUR ---
ICU/RN: INFECTION DISEASE NERA AT BEDSIDE. INFORMED OF ELEVATED HR. NEW ANTIBITOTIC ORDERS RECEIVED. WILL FOLLOW THROUGH.
[2017-08-28] MEDS: RENAL NOVASOURCE 1,000 ML BOTTLE GT PRN (17:11)
[2017-08-28] MEDS ORDERED: FEE PK DOSING 1 MIN EA MC ONE ×2 (17:19)
[2017-08-28] MEDS ORDERED: AMIKACIN 400 MG in IV NS 0.9% 100 ML IV ONE (17:30)
[2017-08-28] MEDS ORDERED: VANCOMYCIN 1 GM in IV NS 0.9% 250 ML IV ONE (17:30)
[2017-08-28] MEDS ORDERED: DOSING PER PHARMACY-AMIKACI IV XX PRN (17:30)
--- NOTE | 2017-08-28 17:39 | NUR ---
RT NOTE PT REMAINS MECHANICALLY VENTILATED VIA 7.5 ETT 23 CM AT LIP. SETTINGS PRESCRIBED AC 16 425 40% +5. ALARMS SET PER PROTOCOL AND AUDIBLE. VENT PLUGGED IN TO RED OUTLET. AMBU BAG AT BED SIDE. NO DISTRESS NOTED.
--- NOTE | 2017-08-28 19:30 | NUR ---
ICU/RN: ENDING NOTES,AM REPORT ENDORSED TO NIGHT NURSE FOR CONTINUATION OF CARE. ALL NEEDS ATTENDED TO, SAFETY MEASURES TAKEN. PT ON VENT SETTINGS ORDERED BY MD. LEVO FOR BP SUPPORT POST HD 2.5 LITERS OUT, BED BATH GIVEN, TURNED AND REPOSITIONED. HR SINUS TACKY, WILL CONTINUE TO MONITOR. CONSENT FOR CT WITH CONTRAST IN CHART. ENDORSE TO AM NURSE TO DO CT PRIOR TO HEMODIALYSIS. SAFETY MEASURES TAKEN, BED IN LOW POSITION, SIDE RIALS UP, CALL LIGHT WITHIN REACH.
--- NOTE | 2017-08-28 20:28 | NUR ---
received pt from day shift, alert, follows simple commands, ST 142, receiving levo at 25mcg, on the vent, lungs congested, pitting/weeping edema, GT to feeding tolerates well, anuric, HD was today, BP low on high dose of levo now (30mcg), tachypneic, no fever, pt turned and repositioned, family at the bedside, Dr Grant called, notified regarding pt condition, 500cc bolus ordered, order received and carried out.
[2017-08-28] MEDS: SENNOSIDES 8.6 MG TABLET PO SCH (21:23)
[2017-08-28] MEDS: MIRTAZAPINE 15 MG TABLET PO SCH (21:23)
[2017-08-28] MEDS: ATORVASTATIN 10 MG TABLET PO SCH (21:23)
[2017-08-28] MEDS: LATANOPROST EYE DROP 0.005% 2.5 ML BOTTLE EACHEYE SCH (21:26)
[2017-08-28] MEDS ORDERED: PHENYLEPHRINE 10 MG/ML VIAL ONE (22:17)
--- NOTE | 2017-08-28 22:30 | NUR ---
SBP 64/34, pt started on shane
[2017-08-28] MEDS: PHENYLEPHRINE 80 MG in IV D5W 250 ML IV PRN (22:41)
--- NOTE | 2017-08-28 23:00 | NUR ---
Dr Grant notified regarding patient's HR 151 and starting second pressor (shane). No orders.
[2017-08-28] MEDS: NOREPINEPHRINE 16 MG in IV D5W 500 ML IV PRN (23:18)
[2017-08-29] VITALS (64 sets, daily range): BP systolic 45–183; BP diastolic 5–76
--- NOTE | 2017-08-29 00:19 | NUR ---
pt is resting in the bed, ST 140, on levo at 40mcg and shane at 140mcg, sat well, pt turned and repositioned q2hrs.
[2017-08-29] MEDS ORDERED: VASOPRESSIN INJ 20 UNIT/ML VIAL ONE (01:02)
--- NOTE | 2017-08-29 01:02 | NUR ---
pt sbp 75/56 pt at maximum doses on levo and shane Dr Grant called order for vasopressin received and carried out
[2017-08-29] MEDS: VASOPRESSIN INJ 50 UNIT in IV D5W 497.5 ML IV PRN ×2 (01:11→12:54)
[2017-08-29] MEDS: METOCLOPRAMIDE HCL 10 MG/2 ML VIAL IV SCH ×3 (01:29→15:45)
[2017-08-29] MEDS: SODIUM CHLORIDE 1000 MG TABLET.SOL GT SCH ×3 (01:29→15:44)
--- NOTE | 2017-08-29 01:30 | NUR ---
pt daughter at the bedside, decided to change Full code to DNR, will notify .
[2017-08-29] MEDS ORDERED: PHENYLEPHRINE 10 MG/ML VIAL ONE (02:35)
[2017-08-29] MEDS: PHENYLEPHRINE 80 MG in IV D5W 250 ML IV PRN ×5 (03:37→21:45)
--- NOTE | 2017-08-29 04:00 | NUR ---
unable to take pictures, pt is very unstable.
[2017-08-29] MEDS: METRONIDAZOLE 500 MG TABLET PO SCH ×3 (04:17→21:00)
--- NOTE | 2017-08-29 04:26 | NUR ---
pt is resting in the bed, semicomatose, ST, maximum dose on levo, shane and vaso, BP stable, no pain, pt cleaned, changed and repositioned q2hrs.
[2017-08-29] MEDS: prednisoLONE ACET 1% OPHT DROP 5 ML BOTTLE LEFTEYE SCH ×3 (05:10→21:24)
[2017-08-29] MEDS: INSULIN REGULAR, HUMAN 100 UNIT/ML 3 ML VIAL SQ PRN ×3 (05:31→18:13)
[2017-08-29] MEDS: BLOOD SUGAR DIAGNOSTIC 1 EACH STRIP IN SCH ×4 (05:31→23:37)
[2017-08-29] MEDS: NOREPINEPHRINE 16 MG in IV D5W 500 ML IV PRN ×2 (05:55→18:16)
[2017-08-29] MEDS: ATROPINE SULFATE OPHTH SOLN 15 ML BOTTLE EACHEYE SCH ×2 (05:56→16:25)
--- NOTE | 2017-08-29 08:00 | NUR ---
ICU/RN PT IS INTUBATED ON THE VENT AC MODE,FIO2-100%,SAT O2-94%.AFEBRILE.ON 3 PRESSORS -MAXIMUM DOSES.COMATOSE.HR-135-145 BPM.G-TUBE INFUSING WITH RENAL NOVASOURCE AT 30 ML/HR/,20 ML RESIDUAL NOTED.ANURIC.ON HD .RECTAL TUBE DRAINING WITH GREEN LIQUID STOOL.SUCTION PROVIDED.
[2017-08-29] MEDS: LACTOBACILLUS RHAMNOSUS GG 1 EACH CAP.SPRINK PO SCH ×2 (08:14→15:44)
[2017-08-29] MEDS: ZINC SULFATE 220 MG CAPSULE PO SCH (08:14)
[2017-08-29] MEDS: ASCORBIC ACID 500 MG TABLET PO SCH (08:14)
[2017-08-29] MEDS: MEGESTROL ACETATE SUSP 400 MG/10 ML UDC PO SCH ×2 (08:14→15:44)
[2017-08-29] MEDS: FOLIC ACID 1 MG TABLET PO SCH (08:14)
[2017-08-29] MEDS: DOCUSATE SODIUM LIQ 100 MG/10 ML UDC GT SCH ×2 (08:15→15:42)
[2017-08-29] MEDS: POTASSIUM CHLORIDE 20 MEQ POWDER PACKET GT SCH (08:16)
[2017-08-29] MEDS: PANTOPRAZOLE 40 MG VIAL IV SCH (08:31)
--- NOTE | 2017-08-29 08:33 | NUR ---
PATIENT NOT STABLE ENOUGH TO COME DOWN FOR CT TODAY, PER RN.
[2017-08-29] MEDS: BRIMONIDINE TARTRATE OPHT SOLN 5 ML BOTTLE EACHEYE SCH ×2 (08:35→16:24)
[2017-08-29] MEDS: MIDODRINE HCL (5MG) 5 MG TABLET GT SCH ×2 (08:35→15:43)
[2017-08-29] MEDS: TIMOLOL 0.5% SOLN OPHTH 5 ML BOTTLE EACHEYE SCH ×2 (08:36→16:25)
[2017-08-29] MEDS: MUPIROCIN OINT 2% 22 GM TUBE SCH ×2 (08:37→21:25)
[2017-08-29] MEDS: NEUTRA PHOS 1 POWD.PACKET PO SCH ×2 (08:39→15:44)
[2017-08-29] MEDS: MULTIVIT, IRON, MIN NO. 8, FA 1 TAB PO SCH (08:39)
[2017-08-29] MEDS: HYDROGEL DRESSING 90 GM TUBE TP SCH (08:40)
[2017-08-29] MEDS: PROSOURCE / PROSTAT (PYXIS) 30 ML UDC PO SCH (08:43)
[2017-08-29] MEDS: ERGOCALCIFEROL (VITAMIN D 2) 50,000 UNIT CAPSULE PO SCH (08:43)
--- NOTE | 2017-08-29 09:00 | NUR ---
ICU/RN DUE MEDS ARE GIVEN ORDERED.
[2017-08-29] MEDS: EPOETIN ALFA (10,000 UNIT) 10,000 UNIT/ML VIAL IV SCH ×2 (11:00→16:23)
--- NOTE | 2017-08-29 11:00 | NUR ---
ICU/RN CHECK G-TUBE RESIDUAL.PT HAS BLOOD IN G-TUBE ,CONNECTED TO SUCTION ,550 ML OUT OF BLOOD.DR OGDEN NOTIFIED.NEW ORDERS RECEIVED.CONTINUE MONITORING.
[2017-08-29] MEDS ORDERED: DESMOPRESSIN 20 MCG in IV NS 0.9% 50 ML IV ONE (11:30)
[2017-08-29 11:38] LABS: LYMPHOCYTES # (AUTO) 1.4 /CMM (0.8-4.8); LYMPHOCYTES % (AUTO) 4.1 % (20.0-44.0); MEAN CORPUSCULAR HEMOGLOBIN 31 PG (26.0-33.0); MEAN CORPUSCULAR HGB CONC 30 g/dl (31.0-36.0); MEAN CORPUSCULAR VOLUME 103 fL (82-100); MONOCYTES # (AUTO) 1.6 /CMM (0.1-1.30); MONOCYTES % (AUTO) 4.7 % (2.0-12.0); NEUTROPHILS # (AUTO) 30.5 /CMM (1.8-8.9); NEUTROPHILS % (AUTO) 91.2 % (43.0-81.0); PLATELET COUNT (AUTO) 86 /CMM (150-450); RDW COEFFICIENT OF VARIATION 22.1 (11.5-15.0)
[2017-08-29 11:47] LABS: HEMOGLOBIN 5.1 g/dL (11.5-14.8); RED BLOOD CELL COUNT(AUTO) 1.67 MIL/uL (4.0-5.2); WHITE BLOOD COUNT (AUTO) 33.4 K/uL (4.3-11.0)
[2017-08-29 11:48] LABS: HEMATOCRIT 17 % (33-45)
[2017-08-29] MEDS: HYDROMORPHONE INJ 0.5 MG/0.5 ML SYRINGE IV PRN ×2 (12:16→15:08)
[2017-08-29 12:40] LABS: BAND % (MANUAL) 6 % (0.0-5.0); LYMPHOCYTES % (MANUAL) 9 % (16-48); MONOCYTES % (MANUAL) 3 % (0-11.0); NEUTROPHILS % (MANUAL) 82 (42-76)
--- NOTE | 2017-08-29 13:40 | NUR ---
SW met with Sadie, pt's daughter who informed SW that she would like a verification of admission letter so that pt's Fredy Miller can come from [facility] to visit his . SW completed letter and gave it to pt's daughter Sadie.
[2017-08-29] MEDS ORDERED: AMIKACIN 500 MG in IV NS 0.9% 100 ML IV PRN (15:00)
[2017-08-29] MEDS ORDERED: VANCOMYCIN 500 MG in IV D5W 100 ML IV PRN (15:00)
--- NOTE | 2017-08-29 15:00 | NUR ---
ICU/RN PT IS STILL HAS GI BLEED.ORAL BLEEDING ,UNABLE TO READ BP ,ON 3 PRESSORS MAXIMUM DOSE ,DESMOPRESSIN IV GIVEN ORDERED,STILL WAITING FOR THE BLOOD .GENERALIZED WEEPING EDEMA PRESENT.MULTIPLY BRUISES AND SKIN TEARS PRESENT.
--- NOTE | 2017-08-29 19:20 | NUR ---
RN NOTES RECEIVED PT OBTUNDED COMATOSE. RESTING WELL NO RESP DISTRESS. PALE LOOKING, COLD SKIN, UNRESPONSIVE TO TACTILE AND VERBAL STIMULI. NO GAG REFLEX WITH ETT 7.5/23 CM @ LIP CONNECTED TO VENT SETTING AC 16 TV 550 FIO2 100% PEEP 5 SATING 91%. DIMINISHED BREATH SOUND. SR HR 93 ON TELE MONITOR. UNABLE TO READ BP, AND TEMP. WITH OOZING SKIN. GT CONNECTED TO LIS WITH GIB , FLEXISEAL INTACT WITH GREENISH DARK COLOR SMALL AMT LIQUID STOOL. IV SITE ON MARIPOSA WITH LEVOPHED @ 40 MCG/MIN, NEOSYNEPHRINE @ 300 MCG/MIN, AND VASOPRESSIN 0.04 U/MIN RUNNING WELL. LEFT CHEST WALL LAISHA CATH INTACT. OFFLOADED EXT WITH PILLOWS KEPT PT CLEAN AND COMFORTABLE IN BED. WILL START BLOOD TRANSFUSION ORDERED. WILL CONTINUE TO MONITOR.
--- NOTE | 2017-08-29 20:38 | NUR ---
RN NOTES STARTED I UNIT OF BLOOD TRANSFUSION AT [facility] . PT HAS NO ACUTE RESP DISTRESS, SATING 90% UNABLE TO READ BLOOD PRESSURE AND TEMP HR 89 RESP 14 TELE MONITOR SR. WILL CONTINUE TO MONITOR.
[2017-08-29] MEDS ORDERED: PANTOPRAZOLE 40 MG VIAL IV SCH (21:00)
[2017-08-29] MEDS: LATANOPROST EYE DROP 0.005% 2.5 ML BOTTLE EACHEYE SCH (21:24)
[2017-08-29] MEDS: ATORVASTATIN 10 MG TABLET PO SCH (21:29)
[2017-08-29] MEDS: SENNOSIDES 8.6 MG TABLET PO SCH (21:30)
[2017-08-29] MEDS: MIRTAZAPINE 15 MG TABLET PO SCH (21:30)
--- NOTE | 2017-08-29 22:17 | NUR ---
RN NOTES 2ND UNIT OF BLOOD TRANSFUSION STARTED, NO ACUTE RESP DISTRESS SHOWS. BP STILL UNREADABLE. SATURATION 83-85%
--- NOTE | 2017-08-29 23:50 | NUR ---
RN NOTES BS 52 MG/DL D50% GIVEN ORDERED AND WILL CHECKED AFTER 30 MINUTES. BP SHOWN AT THIS TIME WITH 86/49 HR 83 SATING 84% WILL CONTINUE TO MONITOR.
[2017-08-30] VITALS: BP 104/61
[2017-08-30 00:05] VITALS: BP 104/61
--- NOTE | 2017-08-30 00:08 | NUR ---
RN NOTES BLOOD TRANSFUSION DONE. 2 UNITS OF BLOOD TRANSFUSION GIVEN ORDERED. LAST VS TAKEN TEMP 91.6 RESP 20 HR 83 BP 104/61 SATING 90%, PT TURNS FROM PALE TO PINKISH COLOR. WILL MONITOR CLOSELY.
--- NOTE | 2017-08-30 00:32 | NUR ---
RN NOTES RECHECKED BS= 116 MG/DL MEDICINE EFFECTIVE.
[2017-08-30] MEDS: NOREPINEPHRINE 16 MG in IV D5W 500 ML IV PRN (01:02)
[2017-08-30] MEDS: SODIUM CHLORIDE 1000 MG TABLET.SOL GT SCH (02:00)
[2017-08-30] MEDS: METOCLOPRAMIDE HCL 10 MG/2 ML VIAL IV SCH (02:00)
--- NOTE | 2017-08-30 02:35 | NUR ---
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
--- NOTE | 2017-08-30 02:40 | NUR ---
RN NOTES CALLED DR. BERNAL, PRODUCT SAFETY ASSOCIATE [employer] AND ADMITTING NATHALY AND INFORMED THAT PATIENT .
--- NOTE | 2017-08-30 02:45 | NUR ---
RN NOTES CALLED ANS SPOKE TO [employer]ASS[employer] DAUGHTER AND INFORMED VIA PHONE THAT HER MOM @ 2:35AM ASKED TO VERIFIED THE MORTUARY DAUGHTER ASKED TO CALL THE SISTER FADUMO SPOKE TO HER AND MADE AWARE ABOUT THE PT TIME. PER SISTER SHE WILL CALLTHE BROTHER TO ASKED ABOUT THE MORTUARY OF THE PATIENT AND SHE WILL CALL BACK TO LET US KNOW, AND THEY'RE NOT GONNA COME AT THIS TIME TO SEE THE PATIENT. POST MORTEM DONE TO PATIENT PICC LINE, FLEXISEAL REMOVED AND EXTUBATE BY RT.
--- NOTE | 2017-08-30 03:30 | NUR ---
RN NOTES FADUMO SISTER CALLED BACK AND SAID THAT SHE CANT CONTACT THE BROTHER AT THIS TIME, AND AGREED TO PLACED THE PT TO [facility] AND THEY WILL LET US KNOW IN THE MORNING WHEN SHE SPOKE TO HER BROTHER. INFORMATION GIVEN TO SISTER HOW TO PICKED UP THE BODY.
--- NOTE | 2017-08-30 03:45 | NUR ---
RN NOTES PT BRING DOWN TO THE [facility]
== END 2017-08-30 02:15 | disposition expired | DRG 710 ==
LOC: ER 14:35 → TELE 19:56 → MED 08-04 09:06 → TELE-TD 08-08 22:50 → ICU 08-08 23:02
PROVIDERS: ADMIT Internal Medicine; ATTEND Internal Medicine
PROC: 5A1955Z Respiratory Ventilation, Greater than 96 Consecutive Hours (ICD-10-PCS; 2017-08-03)
PROC: 0BH17EZ Insertion of Endotracheal Airway into Trachea, Via Natural or Artificial Opening (ICD-10-PCS; 2017-08-03)
PROC: 3E0G76Z Introduction of Nutritional Substance into Upper GI, Via Natural or Artificial Opening (ICD-10-PCS; principal; 2017-08-05 10:32)
PROC: 0DH63UZ Insertion of Feeding Device into Stomach, Percutaneous Approach (ICD-10-PCS; principal; 2017-08-05 10:32)
PROC: 0QBL0ZZ Excision of Right Tarsal, Open Approach (ICD-10-PCS; 2017-08-06)
PROC: B546ZZA Ultrasonography of Right Subclavian Vein, Guidance (ICD-10-PCS; 2017-08-08)
PROC: 05H533Z Insertion of Infusion Device into Right Subclavian Vein, Percutaneous Approach (ICD-10-PCS; 2017-08-08)
PROC: 02HV33Z Insertion of Infusion Device into Superior Vena Cava, Percutaneous Approach (ICD-10-PCS; 2017-08-09)
PROC: B5191ZZ Fluoroscopy of Inferior Vena Cava using Low Osmolar Contrast (ICD-10-PCS; 2017-08-18)
PROC: 06H03DZ Insertion of Intraluminal Device into Inferior Vena Cava, Percutaneous Approach (ICD-10-PCS; 2017-08-18)
DX: A41.9 Sepsis, unspecified organism (principal); J96.01 Acute respiratory failure with hypoxia; R65.21 Severe sepsis with septic shock; J69.0 Pneumonitis due to inhalation of food and vomit; G92 Toxic encephalopathy; J90 Pleural effusion, not elsewhere classified; E43 Unspecified severe protein-calorie malnutrition; L89.514 Pressure ulcer of right ankle, stage 4; E87.2 Acidosis; L89.614 Pressure ulcer of right heel, stage 4; I82.401 Acute embolism and thrombosis of unspecified deep veins of right lower extremity; L89.152 Pressure ulcer of sacral region, stage 2; N18.6 End stage renal disease; R62.7 Adult failure to thrive; I12.0 Hypertensive chronic kidney disease with stage 5 chronic kidney disease or end stage renal disease; E11.22 Type 2 diabetes mellitus with diabetic chronic kidney disease; N39.0 Urinary tract infection, site not specified; D64.9 Anemia, unspecified; K21.9 Gastro-esophageal reflux disease without esophagitis; Z99.2 Dependence on renal dialysis; E78.5 Hyperlipidemia, unspecified; Z51.5 Encounter for palliative care; Z66 Do not resuscitate; E11.51 Type 2 diabetes mellitus with diabetic peripheral angiopathy without gangrene; Z89.512 Acquired absence of left leg below knee; E11.42 Type 2 diabetes mellitus with diabetic polyneuropathy; E11.52 Type 2 diabetes mellitus with diabetic peripheral angiopathy with gangrene; Z86.73 Personal history of transient ischemic attack (TIA), and cerebral infarction without residual deficits; Z83.3 Family history of diabetes mellitus; E11.649 Type 2 diabetes mellitus with hypoglycemia without coma; E11.621 Type 2 diabetes mellitus with foot ulcer; E11.65 Type 2 diabetes mellitus with hyperglycemia; Z79.4 Long term (current) use of insulin; Z79.899 Other long term (current) drug therapy; S40.021A Contusion of right upper arm, initial encounter; X58.XXXA Exposure to other specified factors, initial encounter; Y92.9 Unspecified place or not applicable; Z82.49 Family history of ischemic heart disease and other diseases of the circulatory system; J44.9 Chronic obstructive pulmonary disease, unspecified; L97.409 Non-pressure chronic ulcer of unspecified heel and midfoot with unspecified severity; E83.39 Other disorders of phosphorus metabolism; H26.9 Unspecified cataract; Z22.322 Carrier or suspected carrier of Methicillin resistant Staphylococcus aureus; I70.201 Unspecified atherosclerosis of native arteries of extremities, right leg; I70.0 Atherosclerosis of aorta; F03.90 Unspecified dementia, unspecified severity, without behavioral disturbance, psychotic disturbance, mood disturbance, and anxiety; F32.9 Major depressive disorder, single episode, unspecified; E87.6 Hypokalemia; E78.00 Pure hypercholesterolemia, unspecified; H40.9 Unspecified glaucoma; E87.1 Hypo-osmolality and hyponatremia; I51.7 Cardiomegaly; E83.42 Hypomagnesemia; E11.36 Type 2 diabetes mellitus with diabetic cataract
CPT/HCPCS: 31720; 36415; 36600; 43246; 70450-TC; 71045-TC; 74018; 80048-TC; 80053-TC; 80076-TC; 80150; 80202-TC; 81000-TC; 82248-TC; 82272-TC; 82306; 82728-TC; 82746; 82803-TC; 82962-TC; 83010; 83540-TC; 83605-TC; 83615-TC; 83735-TC; 84100-TC; 84134-TC; 84443-TC; 84484-TC; 84550-TC; 85025-TC; 85027-TC; 85045-TC; 85610-TC; 85652-TC; 85730-TC; 86704; 86705; 86706; 86803; 86850-TC; 86921-TC; 87040-TC; 87070-TC; 87081-TC; 87340; 90935-TC; 93970-TC; 94002-TC; 94003-TC; 94760-TC; 94762-TC; 95819-TC; A4216; A4217; A4606; A6248; A6402; A6403; A9563; C1750; C1751; C1769; C1880; C1894; C9113; J0278; J0330; J0690; J0696; J0885; J1644; J1815; J1956; J2185; J2248; J2370; J2405; J2543; J2597; J2704; J2765; J2997; J3370; J3475; J3480; J3490; J7030; J7040; J7042; J7050; J7060; P9016-BL; P9034-BL; P9047; Q9967; Z7610